=== PATIENT | female | born 1965 | race Caucasian/White ===

== ENCOUNTER 2021-10-04 21:17 | Inpatient (IN) ==
[2021-10-04] MEDS ORDERED: ONDANSETRON INJ 2 MG/ML 2 ML VIAL IV STA (21:49)
[2021-10-04 22:00] LABS: Basophils # (auto) 0.03 K/uL (0-0.2); Basophils % (auto) 0.4 %; Eosinophils # (auto) 0.25 K/uL (0-0.50); Eosinophils % (auto) 3.3 %; Hematocrit (blood only) 39.5 % (34.1-44.9); Hemoglobin 12.7 g/dl (12.0-16.0); Immature Granulocytes # (auto) 0.03 K/uL (0.00-0.02); Immature Granulocytes % (auto) 0.4 %; Lymphocytes # (auto) 0.21 K/uL (1.2-3.4); Lymphocytes % (auto) 2.8 %; Mean Corpuscular Hemoglobin 29.5 pg (25.0-34.0); Mean Corpuscular Hgb Conc 32.2 g/dL (32.0-36.0); Mean Corpuscular Volume 91.9 fL (80.0-100.0); Mean Platelet Volume 10.5 fL (9.4-12.3); Monocytes % (auto) 6.6 %; Neutrophils # (auto) 6.54 K/uL (1.4-6.5); Neutrophils % (auto) 86.5 %; Platelet Count 294 K/uL (130-400); RDW Coefficient of Variation 13.2 % (11.5-14.5); RDW Standard Deviation 44.2 fL (36.4-46.3); White Blood Count 7.56 K/ul (4.8-10.8)
[2021-10-04] MEDS ORDERED: SODIUM CHLORIDE 0.9% 1000ML 2,000 ML IV SCH (22:00)
[2021-10-04] MEDS ORDERED: ceFAZolin 2000MG 2,000 MG/15 ML SYR IV STA (22:14)
--- NOTE | 2021-10-04 22:17 | Emergency Department Note ---
History of Present Illness General Chief complaint: Weakness Time Seen by Provider: 10/04/21 21:49 History of Present Illness 56-year-old female presents to the ED with a chief complaint of generalized weakness as well as some lightheadedness earlier today. She states that she almost felt like she was going to pass out. The daughter states that she looked pale. The patient has a history of tongue cancer status postsurgery in June. She just finished radiation to her tongue and neck last Sunday. The patient states that she has not been eating or drinking well because of the difficulty with eating and drinking since having her surgery and radiation therapy. She has some discharge from her neck wound as well that has been present for the past several days or more. Denies any chest pains. No fevers. No vomiting or diarrhea. No other complaints at this time. EMS found the patient to be hypotensive and initiated liter normal saline IV. Home Medications Medication Instructions Recorded Confirmed Type cholecalciferol (vitamin D3) 1,250 50,000 units PO WEEKLY cap 10/14/18 06/21/21 History mcg (50,000 unit) capsule fluticasone 500 mcg-salmeterol 50 1 puffs INHALATION BID #3 ea 10/14/18 06/21/21 History mcg/dose blistr powdr for inhalation dvjgoloascgi-Iy-dwgb-minerals tab PO DAILY tab 10/14/18 06/21/21 History (Multiple Vitamin, Womens) nitroglycerin 0.4 mg sublingual 0.4 mg SL Q5M PRN #25 tab 10/14/18 06/21/21 History tablet hydroxyzine HCl 50 mg tablet 50 - 100 mg PO Q6H PRN tab 11/03/19 06/21/21 History levomilnacipran 80 mg capsule,24 80 mg PO DAILY 11/03/19 06/21/21 History hr,extended release (Fetzima) tiotropium bromide 1.25 1 puffs INH BID gm 11/03/19 06/21/21 History mcg/actuation mist for inhalation (Spiriva Respimat) nicotine 21 mg/24 hr daily 1 patch TRANSDERMAL Q24H 06/21/21 06/21/21 History transdermal patch (Nicoderm CQ) pantoprazole 20 mg tablet,delayed 10 mg PO DAILY tab 06/21/21 06/21/21 History release atorvastatin 80 mg tablet 80 mg PO HS #90 tab 06/22/21 Rx losartan 50 mg tablet 50 mg PO DAILY #90 tab 06/22/21 Rx metoprolol succinate 50 mg 50 mg PO DAILY #90 tab 06/22/21 Rx tablet,extended release 24 hr Allergies Allergy/AdvReac Type Severity Reaction Status Date / Time No Known Allergies Allergy Verified 06/21/21 11:16 Past Med/Surg History Medical History CAD (coronary artery disease) D1 with high grade stenosis, medical management recommended Chest pain in adult Dyslipidemia Hypertension PAD (peripheral artery disease) Tobacco abuse Surgical History History of cardiac catheterization January 2016 Social History Smoking Status: Former smoker Preferred Language: [place] Feels Safe at Home: Yes Review of Systems A total of 10 systems reviewed and were otherwise negative Physical Exam Vital Signs Vital Signs - 24 hr 10/04/21 21:20 10/04/21 21:42 10/04/21 21:49 Pulse Rate 77 Pulse Rate [Apical] 77 Pulse Rate from SpO2 Sensor Pulse Rhythm [Apical] Respiratory Rate 16 16 Respiratory Effort / Characteristics Non-Labored Non-Labored Spontaneous Respiratory Depth Normal Normal Respiratory Pattern Blood Pressure 68/47 L Blood Pressure [Left Arm] 72/46 L Blood Pressure Mean 54 Blood Pressure Mean [Left Arm] 54 Pulse Oximetry 94 94 94 Oxygen Delivery Method Room Air Room Air Room Air Sepsis Recent Fever Within 48 Hours No Sepsis New/Unexplained Change in Mental Status No Sepsis Action Taken by Nursing No Action Required 10/04/21 22:00 10/04/21 22:30 10/04/21 23:01 Pulse Rate 87 Pulse Rate [Apical] 95 H 89 Pulse Rate from SpO2 Sensor 92 H Pulse Rhythm [Apical] Regular Regular Respiratory Rate 16 16 18 Respiratory Effort / Characteristics Non-Labored Non-Labored Respiratory Depth Normal Normal Respiratory Pattern Regular Blood Pressure 100/74 Blood Pressure [Left Arm] 116/79 112/68 Blood Pressure Mean 82 Blood Pressure Mean [Left Arm] 91 82 Pulse Oximetry 16 L 99 94 Oxygen Delivery Method Room Air Nasal Cannula Room Air Room Air Sepsis Recent Fever Within 48 Hours Sepsis New/Unexplained Change in Mental Status Sepsis Action Taken by Nursing 10/04/21 23:15 Pulse Rate 87 Pulse Rate [Apical] Pulse Rate from SpO2 Sensor Pulse Rhythm [Apical] Respiratory Rate 16 Respiratory Effort / Characteristics Respiratory Depth Respiratory Pattern Blood Pressure 95/68 L Blood Pressure [Left Arm] Blood Pressure Mean 77 Blood Pressure Mean [Left Arm] Pulse Oximetry 94 Oxygen Delivery Method Room Air Sepsis Recent Fever Within 48 Hours Sepsis New/Unexplained Change in Mental Status Sepsis Action Taken by Nursing CONSTITUTIONAL/VITAL SIGNS: Reviewed / noted above. GENERAL: Non-toxic in appearance. INTEGUMENTARY: Warm, dry, and [place]. Erythematous anterior neck with some brown [place] purulent like discharge. HEAD: Normocephalic. EYES: without scleral icterus or trauma. ENT/OROPHARYNX: clear and moist. Brownish discharge from left side of the mouth. LYMPHADENOPATHY/NECK: Is supple without lymphadenopathy or meningismus. RESPIRATORY: Clear to auscultation bilaterally. No increased work of breathing. CARDIOVASCULAR: Regular rate and rhythm. GI/ABDOMEN: Soft and nontender. No organomegaly or pulsatile mass. EXTREMITIES: Warm and well perfused. BACK: No CVA tenderness. NEUROLOGICAL: Intact without focal deficits. PSYCHIATRIC: normal affect. MUSCULOSKELETAL: Normally developed with good muscle tone. TRIAGE NURSING DOCUMENTATION REVIEWED. Course Administered Medications Sodium Chloride (Nss 1000ml) 2,000 mls @ 999 mls/hr IV .Q2H1M DIGNA Stop: 10/05/21 00:00 Last Infusion: 10/04/21 23:41 Dose: 0 mls/hr Documented by: [id number] Admin: 10/04/21 22:09 Dose: 999 mls/hr Documented by: [id number] Discontinued Medications Cefazolin Sodium (Ancef 2000mg) 2,000 mg in 15 mls @ 3.75 mls/min IV NOW STA Stop: 10/04/21 22:17 Last Admin: 10/04/21 22:27 Dose: 3.75 mls/min Documented by: [id number] Acetaminophen (Ofirmev) 1,000 mg in 100 mls @ 400 mls/hr IV NOW STA Stop: 10/04/21 22:34 Last Infusion: 10/04/21 22:57 Dose: 0 mls/hr Documented by: [id number] Admin: 10/04/21 22:28 Dose: 400 mls/hr Documented by: [id number] Ondansetron HCl (Ondansetron Inj 2 Mg/Ml 2 Ml Vial) 4 mg IV NOW STA Stop: 10/04/21 21:50 Last Admin: 10/04/21 22:09 Dose: 4 mg Documented by: [id number] Medical Decision Making Differential Diagnosis Differential includes acute coronary syndrome, myocardial infarction, CVA, TIA, anemia, infection, pneumonia, UTI, pyelonephritis, poor nutrition, dehydration, electrolyte disturbance,hypoglycemia. Medical Records Attestation: I reviewed the patient's medical records. Home Medications Current Medication List: was personally reviewed by me Laboratory Data Attestation: I reviewed the patient's lab results. Result diagrams: 10/04/21 21:43 10/04/21 21:43 Lab Results 10/04/21 10/04/21 10/04/21 Range/Units 21:43 21:43 21:43 WBC 7.56 (4.8-10.8) K/ul RBC 4.30 (3.93-5.22) M/uL Hgb 12.7 (12.0-16.0) g/dl Hct 39.5 (34.1-44.9) % MCV 91.9 (80.0-100.0) fL MCH 29.5 (25.0-34.0) pg MCHC 32.2 (32.0-36.0) g/dL RDW Std Deviation 44.2 (36.4-46.3) fL RDW Coeff of Elyssa 13.2 (11.5-14.5) % Plt Count 294 (130-400) K/uL MPV 10.5 (9.4-12.3) fL Immature Gran % (Auto) 0.4 % Neut % (Auto) 86.5 % Lymph % (Auto) 2.8 % [place] % (Auto) 6.6 % Eos % (Auto) 3.3 % Baso % (Auto) 0.4 % Neut # (Auto) 6.54 H (1.4-6.5) K/uL Lymph # (Auto) 0.21 L (1.2-3.4) K/uL [place] # (Auto) 0.50 (0.24-0.82) K/uL Eos # (Auto) 0.25 (0-0.50) K/uL Baso # (Auto) 0.03 (0-0.2) K/uL Immature Gran # (Auto) 0.03 H (0.00-0.02) K/uL Sodium 133 L (136-145) mmol/L Potassium 3.9 (3.5-5.1) mmol/L Chloride 96 L (98-107) mmol/L Carbon Dioxide 21 (21-32) mmol/L Anion Gap 16 H (3-11) BUN 34 H (6-23) mg/dl Creatinine 3.70 H (0.6-1.2) mg/dl Est Cr Clr Drug Dosing Not Reportable Est GFR ( Amer) 15.1 ml/min Est GFR (Non-Af Amer) 13.0 ml/min BUN/Creatinine Ratio 9.2 L (10-20) Glucose 91 (70-99(Fasting)) mg/dl Calcium 8.7 (8.5-10.1) mg/dl Magnesium 2.5 H (1.7-2.4) mg/dl Total Bilirubin 0.4 (0.2-1.0) mg/dl AST 19 (13-39) U/L ALT 12 (7-52) U/L Alkaline Phosphatase 67 (34-104) U/L Total Creatine Kinase 68 (26-192) U/L Troponin I High Sens 5.2 (0-14) pg/ml Total Protein 6.8 (6.0-8.3) gm/dl Albumin 3.3 L (3.4-5.0) gm/dl Globulin 3.5 (2.5-4.0) gm/dl Albumin/Globulin Ratio 0.9 (0.9-2) TSH 1.190 (0.300-4.500) uIu/ml SARS-CoV-2, RNA, NAAT (NEGATIVE) 10/04/21 Range/Units 22:28 WBC (4.8-10.8) K/ul RBC (3.93-5.22) M/uL Hgb (12.0-16.0) g/dl Hct (34.1-44.9) % MCV (80.0-100.0) fL MCH (25.0-34.0) pg MCHC (32.0-36.0) g/dL RDW Std Deviation (36.4-46.3) fL RDW Coeff of Elyssa (11.5-14.5) % Plt Count (130-400) K/uL MPV (9.4-12.3) fL Immature Gran % (Auto) % Neut % (Auto) % Lymph % (Auto) % [place] % (Auto) % Eos % (Auto) % Baso % (Auto) % Neut # (Auto) (1.4-6.5) K/uL Lymph # (Auto) (1.2-3.4) K/uL [place] # (Auto) (0.24-0.82) K/uL Eos # (Auto) (0-0.50) K/uL Baso # (Auto) (0-0.2) K/uL Immature Gran # (Auto) (0.00-0.02) K/uL Sodium (136-145) mmol/L Potassium (3.5-5.1) mmol/L Chloride (98-107) mmol/L Carbon Dioxide (21-32) mmol/L Anion Gap (3-11) BUN (6-23) mg/dl Creatinine (0.6-1.2) mg/dl Est Cr Clr Drug Dosing Est GFR ( Amer) ml/min Est GFR (Non-Af Amer) ml/min BUN/Creatinine Ratio (10-20) Glucose (70-99(Fasting)) mg/dl Calcium (8.5-10.1) mg/dl Magnesium (1.7-2.4) mg/dl Total Bilirubin (0.2-1.0) mg/dl AST (13-39) U/L ALT (7-52) U/L Alkaline Phosphatase (34-104) U/L Total Creatine Kinase (26-192) U/L Troponin I High Sens (0-14) pg/ml Total Protein (6.0-8.3) gm/dl Albumin (3.4-5.0) gm/dl Globulin (2.5-4.0) gm/dl Albumin/Globulin Ratio (0.9-2) TSH (0.300-4.500) uIu/ml SARS-CoV-2, RNA, NAAT NEGATIVE (NEGATIVE) Imaging Data My Impression: Chest x-ray: Per my interpretation there is no acute disease. No pneumothorax or pneumonia. ECG Data Attestation: I personally reviewed and interpreted this ECG as follows: Additional Comments: Twelve-lead EKG: Per my interpretation shows a normal sinus rhythm at a rate of 83. No ST elevation. No PVCs. Normal QTC. MDM Narrative Patient presents to the ED with a chief complaint of lightheadedness and generalized weakness. She was hypotensive when she initially got here. This improved with a liter of IV fluid that was initiated by EMS.She does soft erythema to the anterior neck from her radiation therapy with some brownish purulent like discharge. The patient CBC was normal. Chemistry panel shows a BUN of 34 and a creatinine of 3.7. The patient does not have any recent labs here before but she states that her last hospitalization in [place] she was never told of any abnormal kidney functions. TSH is normal. Troponin was n egative. COVID test is negative and a chest x-ray was negative for acute disease. The patient was treated with 2 L normal saline IV. She was given some IV Tylenol for discomfort. She was also given IV Ancef for the next cellulitis. She was given some IV Zofran for her nausea. The patient blood pressure after 2 L normal saline was 95/68. 1/3 L of normal saline was ordered. The patient will require further evaluation and care for acute kidney injury likely related to dehydration. She also has some cellulitic type changes in the neck which may or may not be just related to her radiation therapy. Impression & Plan Acute hypotension, Acute dehydration, Acute kidney injury, Cellulitis of neck Discharge Plan Visit Data Chief Complaint: Weakness ED Provider: Dakota Kelly Discharge Problem: Acute hypotension, Acute dehydration, Acute kidney injury, Cellulitis of neck Patient Disposition: Being Evaluated by Hospitalist Forms Stand Alone Forms: My [facility] Prescriptions Prescriptions: No Action atorvastatin 80 mg tablet 80 mg PO HS Qty: 90 RF: 3 losartan 50 mg tablet 50 mg PO DAILY Qty: 90 RF: 3 metoprolol succinate 50 mg tablet extended release 24 hr 50 mg PO DAILY Qty: 90 RF: 3 cholecalciferol (vitamin D3) 50,000 unit capsule 50,000 units PO WEEKLY RF: 0 Multiple Vitamin, Womens tablet PO DAILY RF: 0 nitroglycerin 0.4 mg tablet, sublingual 0.4 mg SL Q5M PRN (Reason: chest pain) Qty: 25 RF: 0 fluticasone propion-salmeterol 500-50 mcg/dose blister with device 1 puffs inhalation BID Qty: 3 RF: 0 Fetzima 80 mg capsule,extended release 24 hr 80 mg PO DAILY RF: 0 hydroxyzine HCl 50 mg tablet 50 - 100 mg PO Q6H PRN (Reason: anxiety or sleep) RF: 0 Spiriva Respimat 1.25 mcg/actuation mist 1 puffs INH BID RF: 0 pantoprazole 20 mg tablet,delayed release (DR/EC) 10 mg PO DAILY RF: 0 nicotine [Nicoderm CQ] 21 mg/24 hr patch 24 hour 1 patch transdermal Q24H RF: 0 Referrals Referrals: Roel Prakash [Hospitalist] -
[2021-10-04] MEDS ORDERED: ACETAMINOPHEN 1,000 MG/100 ML VIAL IV STA (22:20)
[2021-10-04 23:04] LABS: Alanine Aminotransferase 12 U/L (7-52); Albumin Globulin Ratio 0.9 (0.9-2); Albumin Level 3.3 gm/dl (3.4-5.0); Alkaline Phosphatase 67 U/L (34-104); Anion Gap 16 (3-11); Aspartate Aminotransferase 19 U/L (13-39); BUN Creatinine Ratio 9.2 (10-20); Bilirubin,Total 0.4 mg/dl (0.2-1.0); Blood Urea Nitrogen 34 mg/dl (6-23); Calcium 8.7 mg/dl (8.5-10.1); Carbon Dioxide 21 mmol/L (21-32); Chloride 96 mmol/L (98-107); Creatine Kinase 68 U/L (26-192); Est GFR (African American) 15.1 ml/min; Globulin 3.5 gm/dl (2.5-4.0); Glucose 91 mg/dl (70-99(Fasting)); Magnesium 2.5 mg/dl (1.7-2.4); Potassium 3.9 mmol/L (3.5-5.1); Sodium 133 mmol/L (136-145); Total Protein 6.8 gm/dl (6.0-8.3)
[2021-10-04 23:05] LABS: Troponin I High Sensitivity 5.2 pg/ml (0-14)
[2021-10-04] MEDS ORDERED: SODIUM CHLORIDE 0.9% 1000ML 1,000 ML IV ONE (23:41)
[2021-10-05] MEDS ORDERED: Patient's HEIGHT &/or WEIGHT Needed SCH
--- NOTE | 2021-10-05 00:40 | History & Physical Report ---
Date of Service October 05, 2021 Assessment & Plan (1) Acute kidney injury: Plan: Corin Peralta is a 56yo female with PMHx significant for stage 3 oropharyngeal carcinoma (just finished RTx), CAD (s/p NSTEMI, no stents), COPD (no home O2), HTN, dyslipidemia, and previous smoker (40 pack year history, quit several months ago) who presented to [facility] ED on 10/05 for subjective fever/chills, vomiting, decreased PO intake and worsening neck redness/pain for several days. ALEJANDRO Cr 3.7, BUN:Cr ratio <10:1. UA not collected yet. Given history of nausea/vomiting/decreased PO intake for several days, suspect ATN following initial pre-renal injury, which is likely an adverse outcome of last round of radiation tx. However underlying infection may also be playing a role (see below). Patient is not anuric/oliguric. - ordered urine Na + Cr for FENa - ordered US renal complete to r/o other causes of ALEJANDRO - s/p 3L NSS boluses - will continue with 1.5 maintenance via LR @150cc/hr - strict I/Os - consult Nephrology - appreciate recs - trend BMP in AM Neck Cellulitis; Hypotension Patient reports neck redness/discharge throughout course of radiation tx although does report worsening of rash/discharge/pain over last several days. Additionally, given subjective fever/chills and decreased appetite, in addition to profound hypotension on presentation, cellulitis is a likely possibility. Thankfully, patient does not appear septic (SIRS 1/4, qSOFA 1/3, lactate WNL), given that she is immunocompromised, more aggressive treatment is warranted. - s/p Ancef 2g IV, will continue with broad abx coverage with Daptomycin/Zosyn - blood cx taken AFTER Ancef - trend and adjust abx as necessary - IVFs as stated above - PRN Tylenol for fever - trend CBC in AM Hyponatremia Na 133, likely hypotonic hypovolemic hyponatremia in context of above. - IVFs, trend in AM CAD/HLD: continue home Aspirin, Atorvastatin HTN: hold home Losartan and Metoprolol due to hypotension Depression: continue home Cymbalta and Levomilnacipran GERD: continue home Protonix COPD: continue home inhalers FEN/GI: full liquid diet; IVFs as stated above DVT Prophylaxis: Heparin SQ Code Status: full code Disposition: PCU (2) Cellulitis of neck: (3) Acute hypotension: (4) CAD (coronary artery disease): (5) Hypertension: (6) Dyslipidemia: (7) Depression: History of Present Illness Chief Complaint: weakness Primary Care Provider: Kvng Boggs Jaime Peralta is a 56yo female with PMHx significant for stage 3 oropharyngeal carcinoma (just finished RTx), CAD (s/p NSTEMI, no stents), COPD (no home O2), HTN, dyslipidemia, and previous smoker (40 pack year history, quit several months ago) who presented to [facility] ED on 10/05 for NB/NB vomiting, watery diarrhea, subjective fever/chills, generalized weakness, fatigue and decreased PO intake x3-4 days - symptoms began shortly after her last radiation treatment for oropharyngeal carcinoma. Patient also reports increased redness, pain, and purulent drainage from her neck since completion of last RTx. Patient denies h/o CKD. She has had difficulty eating solid foods since her cancer diagnosis but had managed to maintain fluid intake until several days ago - her appetite has been particularly poor over last several days. Patient has 40 pack year smoking history and quit several months ago, before she started radiation therapy. Has several drinks per week. Denies other drug use. Has been proficient with ADLs/iADLs overall and is fully ambulatory without assitance of cane/walker. In the ED the patient was profoundly hypotensive to 68/47 - improved to 101/57 after 3L NSS boluses. Afebrile and not tachycardic or hypoxic. Labs significant for BUN 34/Cr 3.70 (no previous), Na 133, Cl 96, AG 16. No leukocytosis and lactate was 0.5. CXR unremarkable. Patient was given 3L NSS boluses as stated above. Was also given Cefazolin 2g IV and blood cultures were drawn AFTER initiation of abx. Was also given Tylenol 1g PO and Zofran 4mg IV. Allergies Allergy/AdvReac Type Severity Reaction Status Date / Time No Known Allergies Allergy Verified 10/05/21 00:07 Home Medications Medication Instructions Recorded Confirmed Type nitroglycerin 0.4 mg sublingual 0.4 mg sublingual Q5M PRN chest 10/14/18 10/05/21 History tablet pain #25 tabs hydroxyzine HCl 50 mg tablet 50 - 100 mg PO Q6H PRN anxiety or 11/03/19 10/05/21 History sleep levomilnacipran 80 mg capsule,24 80 mg PO DAILY 11/03/19 10/05/21 History hr,extended release (Fetzima) pantoprazole 20 mg tablet,delayed 20 mg PO DAILY 06/21/21 10/05/21 History release atorvastatin 80 mg tablet 80 mg PO HS #90 tabs 06/22/21 10/05/21 Rx losartan 50 mg tablet 50 mg PO DAILY #90 tabs 06/22/21 10/05/21 Rx metoprolol succinate 50 mg 50 mg PO DAILY #90 tabs 06/22/21 10/05/21 Rx tablet,extended release 24 hr aspirin 81 mg tablet,delayed 81 mg PO DAILY 10/05/21 10/05/21 History release nortriptyline 50 mg capsule 50 mg PO HS 10/05/21 10/05/21 History oxycodone 5 mg tablet 5 - 10 mg PO Q4 PRN Pain 10/05/21 10/05/21 History tiotropium bromide 2.5 1 puff inhalation BID 10/05/21 10/05/21 History mcg/actuation mist for inhalation (Spiriva Respimat) zolpidem 10 mg tablet 10 mg PO HS 10/05/21 10/05/21 History Past Med/Surg History Medical History CAD (coronary artery disease) D1 with high grade stenosis, medical management recommended Chest pain in adult Dyslipidemia Hypertension PAD (peripheral artery disease) Tobacco abuse Surgical History History of cardiac catheterization January 2016 Social History Smoking Status: Former smoker Preferred Language: Greenlandic Feels Safe at Home: Yes Review of Systems Review of Systems: All systems reviewed & are unremarkable except as noted in HPI & below Physical Exam Physical Exam: General: A&Ox3. NAD. Cooperative. Thin. HEENT: atraumatic, normocephalic. Neck: nearly circumferential erythematous rash on neck which extends down towards mid-chest, with overlying good film and visible purulent drainage. Surrounding skin is warm. Pulm: CTAB A&P. -wheezes, -rales, -rhonchi. Symmetrical chest rise. No increase work of breathing. No respiratory distress. Cardiac: RRR, -mrg. Radial pulses intact and symmetrical. Abdominal: soft, non-tender, non-distended, BS x 4 Back: no CVA tenderness Skin: warm, dry, no rash Results & Data Results & Data ([facility]) Vital Signs (Past 12 Hours) Vital Signs Pulse Pulse Resp BP BP Pulse Ox 10/04/21 23:45 81 21 101/57 L 94 10/04/21 23:15 87 16 95/68 L 94 10/04/21 23:01 87 18 100/74 94 10/04/21 22:30 89 16 112/68 99 10/04/21 22:00 95 H 16 116/79 16 L 10/04/21 21:49 94 10/04/21 21:42 77 16 72/46 L 94 10/04/21 21:20 77 16 68/47 L 94 Code Status & VTE Plan Code Status full code - discussed with patient Supervising Physician Co-Signing Physician Notes Attending addendum: I have physically seen this patient, have supervised the medical residents activities, and agree with the H&P unless as otherwise noted. Assessment and Plan: Acute kidney injury- Creatinine 3.7 upon admission, unknown baseline Order renal ultrasound Received a total of 3 L normal saline boluses from the ED LR at 150 mils per hour Serial BMP and magnesium levels Nephrology has been consulted Neck cellulitis/immunosuppressed state- Received Ancef 2 g IV from the ED Broaden antibiotic coverage empirically with daptomycin IV and Zosyn IV Follow cultures as noted CAD/hypertension- Continue aspirin Hold metoprolol and losartan due to hypotension Hyperlipidemia- Continue atorvastatin Continue other medications and notations as noted Resident Activity Tracking Resident Involvement: Resident Care Provided Care Provided: Adult [facility]
[2021-10-05] MEDS ORDERED: DAPTOmycin 275 MG in SYRINGE 0 ML IV ONE (01:00)
[2021-10-05] MEDS ORDERED: PIPERACILLIN/TAZOBACTAM 4.5 GM/120 ML BAG IV ONE (01:00)
[2021-10-05 01:02] LABS: Appearance Urine Cloudy (Clear); Bilirubin Urine Negative (Negative); Blood Urine Trace (Negative); Color Urine Yellow; Epithelial Cell Urine Auto >30 /lpf (0-5); Glucose Urine UA Negative (Negative); Ketones Urine Trace (Negative); Leukocyte Esterase Urine Negative (Negative); Nitrite Urine Negative (Negative); Protein Urine 1+ (Negative); RBC Urine Automated 0-4 /hpf (0-4); Specific Gravity Urine 1.015 (1.000-1.030); Urobilinogen Urine Negative (Negative); WBC Urine Automated >30 /hpf (0-5); pH Urine 5.5 (4.5-7.5)
[2021-10-05 01:17] LABS: Bacteria Urine Automated 1+ (Negative); Cast Urine Automated >30 /lpf (0-5); Creatinine Urine Random 102.9 mg/dl; Mucus Urine Present (None Prsent)
[2021-10-05] MEDS ORDERED: ONDANSETRON INJ 2 MG/ML 2 ML VIAL IV PRN (02:01)
[2021-10-05] MEDS ORDERED: POLYETHYLENE (MIRALAX) 17 GM PACK PO PRN (02:01)
[2021-10-05] MEDS: ACETAMINOPHEN 325 MG TAB PO PRN ×2 (05:34→13:40)
[2021-10-05] MEDS: LACTATED RINGER'S 1,000 ML IV SCH ×4 (05:35→22:02)
--- NOTE | 2021-10-05 05:54 | Billing Data ---
Date of Service October 05, 2021 Coding Level of Care Code 20170 Initial Inpt Care Lvl 3
[2021-10-05] MEDS: FIRST - Mouthwash BLM 119 ML PO SCH ×5 (07:07→21:18)
--- NOTE | 2021-10-05 07:50 | XRay Report ---
SINGLE VIEW CHEST CLINICAL HISTORY: Generalized weakness. FINDINGS: An AP, portable, upright chest radiograph is compared to chest x-ray and chest CT dated . Surgical clips are noted in the right lower neck. The cardiomediastinal silhouette is unrema rkable. The lungs and pleural spaces are clear. No pneumothorax is seen. The bony thorax is grossly i ntact. IMPRESSION: No active disease in the chest. ACT 112: Negative or not required by law. Electronically signed by: Jose Francisco Andersen M.D. 10/05/2021 7:49 AM
--- NOTE | 2021-10-05 08:17 | Ultrasound Report ---
US renal/blad retro comp CLINICAL HISTORY: ALEJANDRO TECHNIQUE: Multiple sonographic real-time images of the kidneys and bladder were obtained. COMPARISON: None available at the time of this dictation. FINDINGS: The right kidney measures 12.0 cm in length, and the left kidney measures 11.6 cm in length. The right kidney is normal in size, contour, cortical thickness, and echogenicity. No hydronephrosis is identified. There is a 1.1 cm cyst with a thin septation in the mid kidney. No perinephric fluid collection is seen. The left kidney is normal in size, contour, cortical thickness and echogenicity. No hydronephrosis i s identified. 9 mm hypoechoic structure in the upper pole is nonspecific. No perinephric fluid shane ection is seen. The bladder is partially distended. No large intraluminal mass is seen. IMPRESSION: Unremarkable examination and in particular no evidence of hydronephrosis. A right renal cyst is noted with thin septation. ACT 112: Negative or not required by law. Electronically signed by: Sam Meraz M.D. 10/05/2021 8:16 AM
[2021-10-05 08:38] LABS: Hematocrit (blood only) 33.9 % (34.1-44.9); Hemoglobin 10.9 g/dl (12.0-16.0); Mean Corpuscular Hgb Conc 32.2 g/dL (32.0-36.0); Mean Corpuscular Volume 93.4 fL (80.0-100.0); Mean Platelet Volume 10.6 fL (9.4-12.3); Platelet Count 211 K/uL (130-400); RDW Coefficient of Variation 13.3 % (11.5-14.5); RDW Standard Deviation 45.1 fL (36.4-46.3); Red Blood Count 3.63 M/uL (3.93-5.22); White Blood Count 12.04 K/ul (4.8-10.8)
[2021-10-05] MEDS: PANTOprazole 40 MG TAB PO SCH (08:47)
[2021-10-05] MEDS: UMECLIDINIUM BROMIDE 62.5MCG/BLISTER 7 PUFFS/INHALER INH SCH (08:47)
[2021-10-05] MEDS: HEPARIN SOD 5,000 UNIT/0.5 ML VIAL SQ SCH ×2 (08:47→20:33)
[2021-10-05] MEDS: ASPIRIN 81 MG ECTAB PO SCH (08:47)
--- NOTE | 2021-10-05 08:59 | Nephrology Consultation ---
Date of Consultation October 05, 2021 Assessment & Plan (1) Acute kidney injury: * Baseline Cr unknown * ALEJANDRO on the basis of poor oral intake/profound dehydration in the setting of ARB therapy * Cr improved from 3.7 to 2.2 overnight following IV hydration * FeNa 1.4% * Urine sediment is negative for granular casts * Renal US negative for obstruction * Remains clinically volume contracted. Continue LR at 150 cc/hr * Monitor PRP (2) Hypertension: * Continued relative hypotension * Hold Lisinopril (3) Cellulitis: * Continue Zosyn and Daptomycin. Recommend consultation w/ pharmacy for dosing in the setting of ALEJANDRO History of Present Illness Reason for Consultation: Acute kidney injury Attending Physician: Shanell Sargent DO History of Present Illness Ms. Peralta is a 56 year old white female who is seen at the request of the [facility] Hospitalist Service for evaluation of ALEJANDRO. Medical records in the EMR were reviewed today and are summarized as follows: Ms. Peralta resides in [place], [place]. This is her 1st hospitalization at our facility. Her baseline Cr is unknown. She denies any prior h/o CKD or Nephrology evaluation. Ms. 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 She recently completed a course of radiation therapy. Ms. Peralta's medical history is also significant for HTN (Losartan therapy), ASCVD s/p NSTEMI (no stent), hyperlipidemia, COPD, meningioma, traumatic SDH, and GERD. She reports poor oral intake over the last several days. She has developed erythema and drainage from her R neck dissection/radiation therapy site. Ms. Peralta called EMS due to profound fatigue and orthostasis. She was brought to the hospital and found to be profoundly dehydrated w/ SBP 68/47 and Cr 3.7. A total of 3 L 0.9 NS have been infused. CXR was negative for infiltrate. ECG was NSR. COVID testing was negative. Allergies Allergy/AdvReac Type Severity Reaction Status Date / Time No Known Allergies Allergy Verified 10/05/21 00:07 Home Medications Medication Instructions Recorded Confirmed Type nitroglycerin 0.4 mg sublingual 0.4 mg sublingual Q5M PRN chest 10/14/18 10/05/21 History tablet pain #25 tabs hydroxyzine HCl 50 mg tablet 50 - 100 mg PO Q6H PRN anxiety or 11/03/19 10/05/21 History sleep levomilnacipran 80 mg capsule,24 80 mg PO DAILY 11/03/19 10/05/21 History hr,extended release (Fetzima) pantoprazole 20 mg tablet,delayed 20 mg PO DAILY 06/21/21 10/05/21 History release atorvastatin 80 mg tablet 80 mg PO HS #90 tabs 06/22/21 10/05/21 Rx losartan 50 mg tablet 50 mg PO DAILY #90 tabs 06/22/21 10/05/21 Rx metoprolol succinate 50 mg 50 mg PO DAILY #90 tabs 06/22/21 10/05/21 Rx tablet,extended release 24 hr aspirin 81 mg tablet,delayed 81 mg PO DAILY 10/05/21 10/05/21 History release nortriptyline 50 mg capsule 50 mg PO HS 10/05/21 10/05/21 History oxycodone 5 mg tablet 5 - 10 mg PO Q4 PRN Pain 10/05/21 10/05/21 History tiotropium bromide 2.5 1 puff inhalation BID 10/05/21 10/05/21 History mcg/actuation mist for inhalation (Spiriva Respimat) zolpidem 10 mg tablet 10 mg PO HS 10/05/21 10/05/21 History Patient History Medical History CAD (coronary artery disease) D1 with high grade stenosis, medical management recommended Chest pain in adult Dyslipidemia Hypertension PAD (peripheral artery disease) Tobacco abuse Surgical History History of cardiac catheterization January 2016 Social History Smoking Status: Former smoker Hx Alcohol Use: Yes Hx Substance Use: No Preferred Language: Arabic Communication Ability: Effective Beliefs That Will Affect Care: None marital status: Current Living Situation: Parent Current Living Situation Comment: Lives with her mother Other Information That Helps Us Care for You: No Feels Safe at Home: Yes Safety Concerns: Feels Safe At This Time Assistive Devices: None Review of Systems Constitutional: no fever Eyes: no problem reported Ear, Nose, Mouth, Throat: + pain with swallowing Respiratory: no dyspnea Cardiovascular: no chest pain Gastrointestinal: no abdominal pain, no nausea and no vomiting Neurologic: + generalized weakness Physical Exam Constitutional: + ill appearing Eyes: PERRL, conjunctivae normal, anicteric sclerae Neck: R neck erythematous w/ serous drainage Respiratory: normal respiratory effort, lungs clear to auscultation Cardiovascular: RRR, no murmur, no edema Gastrointestinal (Abdomen): normal bowel sounds, soft, nontender, no hepatosplenomegaly Results & Data ([facility]) Vital Signs (Past 12 Hours) Vital Signs Temp Pulse Pulse Resp BP BP BP 10/05/21 07:00 89 10/05/21 07:00 10/05/21 07:17 36.5 C 88 19 81/60 L 10/05/21 06:25 91 H 10/05/21 02:00 36.9 C 91 H 18 87/60 L 10/05/21 02:01 36.9 C 91 H 18 87/60 L 10/04/21 23:46 36.9 C 91 H 18 87/60 L 10/05/21 01:30 89 18 105/59 L 10/05/21 00:50 86 16 111/70 10/05/21 00:16 94 H 18 105/64 10/04/21 23:45 81 21 101/57 L 10/04/21 23:15 87 16 95/68 L 10/04/21 23:01 87 18 100/74 10/04/21 22:30 89 16 112/68 10/04/21 22:00 95 H 16 116/79 10/04/21 21:49 10/04/21 21:42 77 16 72/46 L 10/04/21 21:20 10/04/21 21:20 77 16 68/47 L Pulse Ox O2 Del Method 10/05/21 07:00 10/05/21 07:00 Room Air 10/05/21 07:17 100 Room Air 10/05/21 06:25 10/05/21 02:00 97 Room Air 10/05/21 02:01 97 10/04/21 23:46 97 Room Air 10/05/21 01:30 91 Room Air 10/05/21 00:50 96 Room Air 10/05/21 00:16 93 Room Air 10/04/21 23:45 94 Room Air 10/04/21 23:15 94 Room Air 10/04/21 23:01 94 Room Air 10/04/21 22:30 99 Room Air 10/04/21 22:00 16 L Room Air, Nasal Cannula 10/04/21 21:49 94 Room Air 10/04/21 21:42 94 Room Air 10/04/21 21:20 94 Room Air 10/04/21 21:20 94 Room Air Laboratory Results Laboratory Tests 10/05/21 10/05/21 10/05/21 00:13 00:13 07:57 WBC 12.04 H Hgb 10.9 L Hct 33.9 L Plt Count 211 Urine Color Yellow Urine Appearance Cloudy A Ur Specific [place] 1.015 Urine Protein 1+ H Urine Blood Trace H Urine WBC (Auto) >30 H U Hyaline Cast (Auto) >30 H U Epithel Cells (Auto) >30 H Urine Bacteria (Auto) 1+ H Ur Random Creatinine 102.9 Ur Random Sodium 54 Diagnostic Findings FeNa 1.4% 10/04/21 Renal US: Unremarkable examination and in particular no evidence of hydronephrosis. A right renal cyst is noted with thin septation. PG Care Time/CCT Total # of Minutes Spent Total Time Spent with Patient: Total time spent is greater than 50% in coordination of care (as documented) at patient's floor/unit and/or counseling patient: Coding Level of Care Code 58845 Inpt Consult Level 5 Diagnoses Acute kidney injury N17.9 Hypertension I10 Cellulitis L03.90
[2021-10-05] MEDS ORDERED: NON-FORMULARY MEDICATION (Tiotropium Bromide [Spiriva Respimat] 2.5 mcg/actuation mist) INH SCH (09:00)
[2021-10-05 09:04] LABS: BUN Creatinine Ratio 14.5 (10-20); Creatinine Clr Calc Pharmacy 22.9 ml/min; Est GFR (African American) 28.3 ml/min; Est GFR (Non-African American) 24.4 ml/min; Magnesium 1.9 mg/dl (1.7-2.4); Potassium 3.6 mmol/L (3.5-5.1)
[2021-10-05 09:10] LABS: Basophils # (auto) 0.05 K/uL (0-0.2); Basophils % (auto) 0.4 %; Eosinophils # (auto) 0.01 K/uL (0-0.50); Eosinophils % (auto) 0.1 %; Immature Granulocytes # (auto) 0.17 K/uL (0.00-0.02); Immature Granulocytes % (auto) 1.4 %; Lymphocytes # (auto) 0.15 K/uL (1.2-3.4); Lymphocytes % (auto) 1.2 %; Monocytes # (auto) 0.96 K/uL (0.24-0.82); Neutrophils % (auto) 88.9 %
[2021-10-05] MEDS ORDERED: PIPERACILLIN/TAZOBACTAM 3.375 GM in DEXTROSE 5% 100 ML IV SCH (10:00)
--- NOTE | 2021-10-05 10:05 | Hospitalist Progress Note ---
Date of Service October 05, 2021 Assessment & Plan (1) Acute kidney injury: Plan: Corin Peralta is a 56yo female with PMHx significant for stage 3 oropharyngeal carcinoma (just finished RTx), CAD (s/p NSTEMI, no stents), COPD (no home O2), HTN, dyslipidemia, and previous smoker (40 pack year history, quit several months ago) who presented to [facility] ED on 10/05 for subjective fever/chills, vomiting, decreased PO intake and worsening neck redness/pain for several days. ALEJANDRO Cr 3.7, BUN:Cr ratio <10:1.. Given history of nausea/vomiting/decreased PO intake for several days, suspect ATN following initial pre-renal injury, which is likely an adverse outcome of last round of radiation tx. However underlying infection may also be playing a role (see below). Patient is not anuric/oliguric. - Cr 2.2, improved with hydration - s/p 3L NSS boluses - will continue with 1.5 maintenance via LR @150cc/hr - US renal: R renal cyst otherwise normal - FeNa 1.4% - Urine sediment neg for granular casts - strict I/Os - Nephrology consulted - trend BMP in AM Neck Cellulitis; Hypotension Patient reports neck redness/discharge throughout course of radiation tx although does report worsening of rash/discharge/pain over last several days. Given subjective fever/chills and decreased appetite, in addition to profound hypotension on presentation, cellulitis is a likely possibility. Patient does not appear septic (SIRS 1/4, qSOFA 1/3, lactate WNL), given that she is immunocompromised, more aggressive treatment is warranted. - s/p Ancef 2g IV, will continue with broad abx coverage with Daptomycin/Zosyn, renally dosed - blood cx taken AFTER Ancef - trend and adjust abx as necessary - IVFs as stated above - PRN Tylenol for fever - trend CBC in AM Nonbloody Diarrhea -contributing to fluid status and ALEJANDRO -c. diff gene position, tox neg; on contact precautions -GI PCR pending -Ova + parasite panel pend Hyponatremia, stable Na 133, likely hypotonic hypovolemic hyponatremia in context of above. - IVFs, trend in AM CAD/HLD -continue home Aspirin, Atorvastatin HTN -hold home Losartan and Metoprolol due to hypotension Depression -continue home Cymbalta and Levomilnacipran GERD -continue home Protonix COPD -continue home inhalers FEN/GI: full liquid diet; IVFs as stated above DVT Prophylaxis: Heparin SQ Code Status: full code Disposition: PCU (2) Cellulitis of neck: (3) Acute hypotension: (4) CAD (coronary artery disease): (5) Hypertension: (6) Dyslipidemia: (7) Depression: Admission and Anticipated Discharge Date Admission Date: October 05, 2021 Supervising Physician Co-Signing Physician Notes Patient seen and examined with PGY-2 Dr. Patterson. Agree with history, exam findings, assessment and plan of care as outlined. In brief, Ms. Peratla is a 56 year old female with history of history of oropharyngeal cancer (stage 3) undergoing radiation, NSTEMI, COPD, HTN, HLD admitted with fever, chills, vomiting and loose stool, found to have ALEJANDRO. Continues to have multiple episodes of loose stools per day with urgency. Continues to have mouth pain. Follows with radiation oncologist and oncologist in [place]. VS and nursing notes reviewed. Non-toxic appearing. Moist mucus membranes. Neck--area is covered with kerlex dressing. Reviewed pictures from wound care. Heart with regular and rhythm. Lungs are clear to auscultation throughout Abdomen is soft, non-tender. Labs and imaging reviewed. 1. ALEJANDRO. Pre-renal. Improving. Renal ultrasound without signs of obstruction. FeNa 1.4%. Continue with 150/hr of LR. Appreciate nephrology recs. 2. Cellulitis, neck. Following radiation--most consistent with burn. Treating with dapto and zosyn (MRSA and pseduomoas coverage). Renal dosing the zosyn. Blood cultures are pending. Appreciate wound care recommendations. 3. Hyponatremia. resolved. 4. Diarrhea. GI biofire to rule out infectious source. 5. hypotension. Secondary to intravascular depletion and infection. Continue with IVFs and treat infectious sources. Dispo: pending clinical improvement. Subjective Patient seen at bedside this morning. No overnight or acute events. Feeling better than prior. Complains of chronic mouth pain/ulcers, mild abdominal pain/nausea but improving, dysuria. No vomiting episodes since prior to admission. No difficulty swallowing. Has been having constant nonbloody diarrhea. Review of Systems Review of Systems: All systems reviewed & are unremarkable except as noted in HPI & below Physical Exam Physical Exam: General: A&Ox3. NAD. Cooperative. Thin. HEENT: NCAT. Moist mucous membranes. Neck: nearly circumferential erythematous rash on neck which extends down towards mid chest, with overlying good film and visible purulent drainage. Surrounding skin is warm. Pulm: CTAB. no wheezes, rales, rhonchi. Symmetrical chest rise. No increase work of breathing. No respiratory distress. Cardiac: RRR, no murmurs. Radial pulses intact and symmetrical. Abdominal: soft, nontender, nondistended, +BS Skin: warm, dry Results & Data Results & Data ([facility]) Vital Signs (Past 12 Hours) Vital Signs Temp Pulse Pulse Resp BP BP BP 10/05/21 07:00 89 10/05/21 07:00 10/05/21 07:17 36.5 C 88 19 81/60 L 10/05/21 06:25 91 H 10/05/21 02:00 36.9 C 91 H 18 87/60 L 10/05/21 02:01 36.9 C 91 H 18 87/60 L 10/04/21 23:46 36.9 C 91 H 18 87/60 L 10/05/21 01:30 89 18 105/59 L 10/05/21 00:50 86 16 111/70 10/05/21 00:16 94 H 18 105/64 10/04/21 23:45 81 21 101/57 L 10/04/21 23:15 87 16 95/68 L 10/04/21 23:01 87 18 100/74 10/04/21 22:30 89 16 112/68 Pulse Ox O2 Del Method 10/05/21 07:00 10/05/21 07:00 Room Air 10/05/21 07:17 100 Room Air 10/05/21 06:25 10/05/21 02:00 97 Room Air 10/05/21 02:01 97 10/04/21 23:46 97 Room Air 10/05/21 01:30 91 Room Air 10/05/21 00:50 96 Room Air 10/05/21 00:16 93 Room Air 10/04/21 23:45 94 Room Air 10/04/21 23:15 94 Room Air 10/04/21 23:01 94 Room Air 10/04/21 22:30 99 Room Air Laboratory Results 10/05/21 10/05/21 10/05/21 Range/Units 15:17 08:18 07:57 WBC (4.8-10.8) K/ul RBC (3.93-5.22) M/uL Hgb (12.0-16.0) g/dl Hct (34.1-44.9) % MCV (80.0-100.0) fL MCH (25.0-34.0) pg MCHC (32.0-36.0) g/dL RDW Std Deviation (36.4-46.3) fL RDW Coeff of Elyssa (11.5-14.5) % Plt Count (130-400) K/uL MPV (9.4-12.3) fL Immature Gran % (Auto) % Neut % (Auto) % Lymph % (Auto) % [place] % (Auto) % Eos % (Auto) % Baso % (Auto) % Neut # (Auto) (1.4-6.5) K/uL Lymph # (Auto) (1.2-3.4) K/uL [place] # (Auto) (0.24-0.82) K/uL Eos # (Auto) (0-0.50) K/uL Baso # (Auto) (0-0.2) K/uL Immature Gran # (Auto) (0.00-0.02) K/uL Sodium 137 136 (136-145) mmol/L Potassium 3.6 3.6 (3.5-5.1) mmol/L Chloride 107 104 (98-107) mmol/L Carbon Dioxide 17 L 21 (21-32) mmol/L Anion Gap 13 H 11 (3-11) BUN 31 H 32 H (6-23) mg/dl Creatinine 1.67 H D 2.20 H D (0.6-1.2) mg/dl Est Cr Clr Drug Dosing 30.1 22.9 Est GFR ( Amer) 39.5 28.3 ml/min Est GFR (Non-Af Amer) 34.1 24.4 ml/min BUN/Creatinine Ratio 18.6 14.5 (10-20) Glucose 88 100 H (70-99(Fasting)) mg/dl Lactate (0.4-2.0) mmol/L Calcium 6.9 L 7.0 L (8.5-10.1) mg/dl Magnesium 1.9 (1.7-2.4) mg/dl Total Bilirubin (0.2-1.0) mg/dl AST (13-39) U/L ALT (7-52) U/L Alkaline Phosphatase (34-104) U/L Total Creatine Kinase (26-192) U/L Troponin I High Sens (0-14) pg/ml Total Protein (6.0-8.3) gm/dl Albumin (3.4-5.0) gm/dl Globulin (2.5-4.0) gm/dl Albumin/Globulin Ratio (0.9-2) Prealbumin 9.0 L (20-40) mg/dl Procalcitonin (0-0.5) ng/ml TSH (0.300-4.500) uIu/ml Urine Color Urine Appearance (Clear) Urine pH (4.5-7.5) Ur Specific [place] (1.000-1.030) Urine Protein (Negative) Urine Glucose (UA) (Negative) Urine Ketones (Negative) Urine Blood (Negative) Urine Nitrite (Negative) Urine Bilirubin (Negative) Urine Urobilinogen (Negative) Ur Leukocyte Esterase (Negative) Urine WBC (Auto) (0-5) /hpf Urine RBC (Auto) (0-4) /hpf U Hyaline Cast (Auto) (0-5) /lpf U Epithel Cells (Auto) (0-5) /lpf Urine Bacteria (Auto) (Negative) Urine Mucus (None Prsent) Urine Yeast (None Prsent) Ur Random Creatinine mg/dl Ur Random Sodium mmol/L Stl C. diff Tox B Gene Positive Cdiff Gene H (Neg) Stl C.difficile Tox A&B Negative Cdiff Toxin (Negative) SARS-CoV-2, RNA, NAAT (NEGATIVE) 10/05/21 10/05/21 10/05/21 Range/Units 07:57 00:13 00:13 WBC 12.04 H (4.8-10.8) K/ul RBC 3.63 L (3.93-5.22) M/uL Hgb 10.9 L (12.0-16.0) g/dl Hct 33.9 L (34.1-44.9) % MCV 93.4 (80.0-100.0) fL MCH 30.0 (25.0-34.0) pg MCHC 32.2 (32.0-36.0) g/dL RDW Std Deviation 45.1 (36.4-46.3) fL RDW Coeff of Elyssa 13.3 (11.5-14.5) % Plt Count 211 (130-400) K/uL MPV 10.6 (9.4-12.3) fL Immature Gran % (Auto) 1.4 % Neut % (Auto) 88.9 % Lymph % (Auto) 1.2 % [place] % (Auto) 8.0 % Eos % (Auto) 0.1 % Baso % (Auto) 0.4 % Neut # (Auto) 10.70 H (1.4-6.5) K/uL Lymph # (Auto) 0.15 L (1.2-3.4) K/uL [place] # (Auto) 0.96 H (0.24-0.82) K/uL Eos # (Auto) 0.01 (0-0.50) K/uL Baso # (Auto) 0.05 (0-0.2) K/uL Immature Gran # (Auto) 0.17 H (0.00-0.02) K/uL Sodium (136-145) mmol/L Potassium (3.5-5.1) mmol/L Chloride (98-107) mmol/L Carbon Dioxide (21-32) mmol/L Anion Gap (3-11) BUN (6-23) mg/dl Creatinine (0.6-1.2) mg/dl Est Cr Clr Drug Dosing Est GFR ( Amer) ml/min Est GFR (Non-Af Amer) ml/min BUN/Creatinine Ratio (10-20) Glucose (70-99(Fasting)) mg/dl Lactate (0.4-2.0) mmol/L Calcium (8.5-10.1) mg/dl Magnesium (1.7-2.4) mg/dl Total Bilirubin (0.2-1.0) mg/dl AST (13-39) U/L ALT (7-52) U/L Alkaline Phosphatase (34-104) U/L Total Creatine Kinase (26-192) U/L Troponin I High Sens (0-14) pg/ml Total Protein (6.0-8.3) gm/dl Albumin (3.4-5.0) gm/dl Globulin (2.5-4.0) gm/dl Albumin/Globulin Ratio (0.9-2) Prealbumin (20-40) mg/dl Procalcitonin (0-0.5) ng/ml TSH (0.300-4.500) uIu/ml Urine Color Yellow Urine Appearance Cloudy A (Clear) Urine pH 5.5 (4.5-7.5) Ur Specific [place] 1.015 (1.000-1.030) Urine Protein 1+ H (Negative) Urine Glucose (UA) Negative (Negative) Urine Ketones Trace H (Negative) Urine Blood Trace H (Negative) Urine Nitrite Negative (Negative) Urine Bilirubin Negative (Negative) Urine Urobilinogen Negative (Negative) Ur Leukocyte Esterase Negative (Negative) Urine WBC (Auto) >30 H (0-5) /hpf Urine RBC (Auto) 0-4 (0-4) /hpf U Hyaline Cast (Auto) >30 H (0-5) /lpf U Epithel Cells (Auto) >30 H (0-5) /lpf Urine Bacteria (Auto) 1+ H (Negative) Urine Mucus Present A (None Prsent) Urine Yeast Present A (None Prsent) Ur Random Creatinine 102.9 mg/dl Ur Random Sodium 54 mmol/L Stl C. diff Tox B Gene (Neg) Stl C.difficile Tox A&B (Negative) SARS-CoV-2, RNA, NAAT (NEGATIVE) 10/05/21 10/05/21 10/05/21 Range/Units 00:08 00:08 00:08 WBC (4.8-10.8) K/ul RBC (3.93-5.22) M/uL Hgb (12.0-16.0) g/dl Hct (34.1-44.9) % MCV (80.0-100.0) fL MCH (25.0-34.0) pg MCHC (32.0-36.0) g/dL RDW Std Deviation (36.4-46.3) fL RDW Coeff of Elyssa (11.5-14.5) % Plt Count (130-400) K/uL MPV (9.4-12.3) fL Immature Gran % (Auto) % Neut % (Auto) % Lymph % (Auto) % [place] % (Auto) % Eos % (Auto) % Baso % (Auto) % Neut # (Auto) (1.4-6.5) K/uL Lymph # (Auto) (1.2-3.4) K/uL [place] # (Auto) (0.24-0.82) K/uL Eos # (Auto) (0-0.50) K/uL Baso # (Auto) (0-0.2) K/uL Immature Gran # (Auto) (0.00-0.02) K/uL Sodium (136-145) mmol/L Potassium (3.5-5.1) mmol/L Chloride (98-107) mmol/L Carbon Dioxide (21-32) mmol/L Anion Gap (3-11) BUN (6-23) mg/dl Creatinine (0.6-1.2) mg/dl Est Cr Clr Drug Dosing Est GFR ( Amer) ml/min Est GFR (Non-Af Amer) ml/min BUN/Creatinine Ratio (10-20) Glucose (70-99(Fasting)) mg/dl Lactate 0.5 (0.4-2.0) mmol/L Calcium (8.5-10.1) mg/dl Magnesium (1.7-2.4) mg/dl Total Bilirubin (0.2-1.0) mg/dl AST (13-39) U/L ALT (7-52) U/L Alkaline Phosphatase (34-104) U/L Total Creatine Kinase 54 (26-192) U/L Troponin I High Sens (0-14) pg/ml Total Protein (6.0-8.3) gm/dl Albumin (3.4-5.0) gm/dl Globulin (2.5-4.0) gm/dl Albumin/Globulin Ratio (0.9-2) Prealbumin (20-40) mg/dl Procalcitonin 0.12 (0-0.5) ng/ml TSH (0.300-4.500) uIu/ml Urine Color Urine Appearance (Clear) Urine pH (4.5-7.5) Ur Specific [place] (1.000-1.030) Urine Protein (Negative) Urine Glucose (UA) (Negative) Urine Ketones (Negative) Urine Blood (Negative) Urine Nitrite (Negative) Urine Bilirubin (Negative) Urine Urobilinogen (Negative) Ur Leukocyte Esterase (Negative) Urine WBC (Auto) (0-5) /hpf Urine RBC (Auto) (0-4) /hpf U Hyaline Cast (Auto) (0-5) /lpf U Epithel Cells (Auto) (0-5) /lpf Urine Bacteria (Auto) (Negative) Urine Mucus (None Prsent) Urine Yeast (None Prsent) Ur Random Creatinine mg/dl Ur Random Sodium mmol/L Stl C. diff Tox B Gene (Neg) Stl C.difficile Tox A&B (Negative) SARS-CoV-2, RNA, NAAT (NEGATIVE) 10/04/21 10/04/21 10/04/21 Range/Units 22:50 22:28 21:43 WBC (4.8-10.8) K/ul RBC (3.93-5.22) M/uL Hgb (12.0-16.0) g/dl Hct (34.1-44.9) % MCV (80.0-100.0) fL MCH (25.0-34.0) pg MCHC (32.0-36.0) g/dL RDW Std Deviation (36.4-46.3) fL RDW Coeff of Elyssa (11.5-14.5) % Plt Count (130-400) K/uL MPV (9.4-12.3) fL Immature Gran % (Auto) % Neut % (Auto) % Lymph % (Auto) % [place] % (Auto) % Eos % (Auto) % Baso % (Auto) % Neut # (Auto) (1.4-6.5) K/uL Lymph # (Auto) (1.2-3.4) K/uL [place] # (Auto) (0.24-0.82) K/uL Eos # (Auto) (0-0.50) K/uL Baso # (Auto) (0-0.2) K/uL Immature Gran # (Auto) (0.00-0.02) K/uL Sodium (136-145) mmol/L Potassium (3.5-5.1) mmol/L Chloride (98-107) mmol/L Carbon Dioxide (21-32) mmol/L Anion Gap (3-11) BUN (6-23) mg/dl Creatinine (0.6-1.2) mg/dl Est Cr Clr Drug Dosing Est GFR ( Amer) ml/min Est GFR (Non-Af Amer) ml/min BUN/Creatinine Ratio (10-20) Glucose (70-99(Fasting)) mg/dl Lactate 1.4 (0.4-2.0) mmol/L Calcium (8.5-10.1) mg/dl Magnesium (1.7-2.4) mg/dl Total Bilirubin (0.2-1.0) mg/dl AST (13-39) U/L ALT (7-52) U/L Alkaline Phosphatase (34-104) U/L Total Creatine Kinase (26-192) U/L Troponin I High Sens (0-14) pg/ml Total Protein (6.0-8.3) gm/dl Albumin (3.4-5.0) gm/dl Globulin (2.5-4.0) gm/dl Albumin/Globulin Ratio (0.9-2) Prealbumin (20-40) mg/dl Procalcitonin (0-0.5) ng/ml TSH 1.190 (0.300-4.500) uIu/ml Urine Color Urine Appearance (Clear) Urine pH (4.5-7.5) Ur Specific [place] (1.000-1.030) Urine Protein (Negative) Urine Glucose (UA) (Negative) Urine Ketones (Negative) Urine Blood (Negative) Urine Nitrite (Negative) Urine Bilirubin (Negative) Urine Urobilinogen (Negative) Ur Leukocyte Esterase (Negative) Urine WBC (Auto) (0-5) /hpf Urine RBC (Auto) (0-4) /hpf U Hyaline Cast (Auto) (0-5) /lpf U Epithel Cells (Auto) (0-5) /lpf Urine Bacteria (Auto) (Negative) Urine Mucus (None Prsent) Urine Yeast (None Prsent) Ur Random Creatinine mg/dl Ur Random Sodium mmol/L Stl C. diff Tox B Gene (Neg) Stl C.difficile Tox A&B (Negative) SARS-CoV-2, RNA, NAAT NEGATIVE (NEGATIVE) 07/12/22 07/12/22 Range/Units 21:43 21:43 WBC 7.56 (4.8-10.8) K/ul RBC 4.30 (3.93-5.22) M/uL Hgb 12.7 (12.0-16.0) g/dl Hct 39.5 (34.1-44.9) % MCV 91.9 (80.0-100.0) fL MCH 29.5 (25.0-34.0) pg MCHC 32.2 (32.0-36.0) g/dL RDW Std Deviation 44.2 (36.4-46.3) fL RDW Coeff of Elyssa 13.2 (11.5-14.5) % Plt Count 294 (130-400) K/uL MPV 10.5 (9.4-12.3) fL Immature Gran % (Auto) 0.4 % Neut % (Auto) 86.5 % Lymph % (Auto) 2.8 % [place] % (Auto) 6.6 % Eos % (Auto) 3.3 % Baso % (Auto) 0.4 % Neut # (Auto) 6.54 H (1.4-6.5) K/uL Lymph # (Auto) 0.21 L (1.2-3.4) K/uL [place] # (Auto) 0.50 (0.24-0.82) K/uL Eos # (Auto) 0.25 (0-0.50) K/uL Baso # (Auto) 0.03 (0-0.2) K/uL Immature Gran # (Auto) 0.03 H (0.00-0.02) K/uL Sodium 133 L (136-145) mmol/L Potassium 3.9 (3.5-5.1) mmol/L Chloride 96 L (98-107) mmol/L Carbon Dioxide 21 (21-32) mmol/L Anion Gap 16 H (3-11) BUN 34 H (6-23) mg/dl Creatinine 3.70 H (0.6-1.2) mg/dl Est Cr Clr Drug Dosing Not Reportable Est GFR ( Amer) 15.1 ml/min Est GFR (Non-Af Amer) 13.0 ml/min BUN/Creatinine Ratio 9.2 L (10-20) Glucose 91 (70-99(Fasting)) mg/dl Lactate (0.4-2.0) mmol/L Calcium 8.7 (8.5-10.1) mg/dl Magnesium 2.5 H (1.7-2.4) mg/dl Total Bilirubin 0.4 (0.2-1.0) mg/dl AST 19 (13-39) U/L ALT 12 (7-52) U/L Alkaline Phosphatase 67 (34-104) U/L Total Creatine Kinase 68 (26-192) U/L Troponin I High Sens 5.2 (0-14) pg/ml Total Protein 6.8 (6.0-8.3) gm/dl Albumin 3.3 L (3.4-5.0) gm/dl Globulin 3.5 (2.5-4.0) gm/dl Albumin/Globulin Ratio 0.9 (0.9-2) Prealbumin (20-40) mg/dl Procalcitonin (0-0.5) ng/ml TSH (0.300-4.500) uIu/ml Urine Color Urine Appearance (Clear) Urine pH (4.5-7.5) Ur Specific [place] (1.000-1.030) Urine Protein (Negative) Urine Glucose (UA) (Negative) Urine Ketones (Negative) Urine Blood (Negative) Urine Nitrite (Negative) Urine Bilirubin (Negative) Urine Urobilinogen (Negative) Ur Leukocyte Esterase (Negative) Urine WBC (Auto) (0-5) /hpf Urine RBC (Auto) (0-4) /hpf U Hyaline Cast (Auto) (0-5) /lpf U Epithel Cells (Auto) (0-5) /lpf Urine Bacteria (Auto) (Negative) Urine Mucus (None Prsent) Urine Yeast (None Prsent) Ur Random Creatinine mg/dl Ur Random Sodium mmol/L Stl C. diff Tox B Gene (Neg) Stl C.difficile Tox A&B (Negative) SARS-CoV-2, RNA, NAAT (NEGATIVE) Resident Activity Tracking Resident Involvement: Resident Care Provided Care Provided: Adult Hospital Medicine
--- NOTE | 2021-10-05 11:18 | Electrocardiogram Report ---
Test Reason : Blood Pressure : / mmHG Vent. Rate : 083 BPM Atrial Rate : 083 BPM P-R Int : 172 ms QRS Dur : 106 ms QT Int : 416 ms P-R-T Axes : 049 016 042 degrees QTc Int : 488 ms Normal sinus rhythm Prolonged QT Abnormal ECG When compared with ECG of 06-FEB-2016 11:00, Nonspecific T wave abnormality no longer evident in Lateral leads Confirmed by Yony Sanders ([id number]) on 10/05/2021 11:18:22 AM Referred By: REFERRED SELF Confirmed By:Adolfo Sanders
[2021-10-05 12:52] LABS: Cdiff Antigen Positive
[2021-10-05 12:53] LABS: Cdiff Toxin A+B Negative Cdiff Toxin (Negative)
[2021-10-05 16:06] LABS: BUN Creatinine Ratio 18.6 (10-20); Calcium 6.9 mg/dl (8.5-10.1); Creatinine Clr Calc Pharmacy 30.1 ml/min; Est GFR (African American) 39.5 ml/min; Est GFR (Non-African American) 34.1 ml/min; Potassium 3.6 mmol/L (3.5-5.1)
[2021-10-05] MEDS: HYDROmorphone INJ 0.5 MG/0.5 ML SYR IV PRN (20:23)
[2021-10-05] MEDS: NORTRIPTYLINE HCL 25 MG CAP PO SCH (20:34)
[2021-10-05] MEDS: ATORVASTATIN 40 MG TAB PO SCH (20:35)
[2021-10-05] MEDS ORDERED: PIPERACILLIN/TAZOBACTAM 2.25 GM in DEXTROSE 5% 100 ML IV SCH (21:00)
[2021-10-05] MEDS: PIPERACILLIN/TAZOBACTAM 3.375 GM in DEXTROSE 5% 100 ML IV SCH (21:58)
[2021-10-06] MEDS: FIRST - Mouthwash BLM 119 ML PO SCH ×6 (03:27→21:03)
[2021-10-06 03:33] LABS: Adenovirus F 40/41 PCR Not Detected (NotDetected); Astrovirus PCR Not Detected (NotDetected); Campylobacter PCR Not Detected (NotDetected); Cryptosporidium PCR Not Detected (NotDetected); Cyclospora cayetanensis PCR Not Detected (NotDetected); Entamoeba histolytica PCR Not Detected (NotDetected); Enteroaggregative E.coli(EAEC) Not Detected (NotDetected); Enteropathogenic E.coli (EPEC) Not Detected (NotDetected); Enterotoxigenic E.coli (ETEC) Not Detected (NotDetected); Giardia lamblia PCR Not Detected (NotDetected); Norovirus GI/GII PCR Not Detected (NotDetected); Plesiomonas shigelloides PCR Not Detected (NotDetected); Rotavirus A PCR Not Detected (NotDetected); Salmonella PCR Not Detected (NotDetected); Sapovirus PCR Not Detected (NotDetected); Shiga-like Toxin E.coli (STEC) Not Detected (NotDetected); Shigella/Enteroinvasive E.coli Not Detected (NotDetected); Vibrio cholerae PCR Not Detected (NotDetected); Vibrio species PCR Not Detected (NotDetected); Yersinia enterocolitica PCR Not Detected (NotDetected)
[2021-10-06] MEDS: HYDROmorphone INJ 0.5 MG/0.5 ML SYR IV PRN ×4 (04:38→20:59)
[2021-10-06] MEDS: LACTATED RINGER'S 1,000 ML IV SCH ×3 (04:38→18:13)
[2021-10-06 05:08] LABS: Cdiff Antigen Positive; Cdiff Toxin A+B Negative Cdiff Toxin (Negative)
[2021-10-06] MEDS: PIPERACILLIN/TAZOBACTAM 3.375 GM in DEXTROSE 5% 100 ML IV SCH ×3 (05:25→21:53)
[2021-10-06 08:01] LABS: Hematocrit (blood only) 31.6 % (34.1-44.9); Hemoglobin 10.1 g/dl (12.0-16.0); Mean Corpuscular Hemoglobin 28.8 pg (25.0-34.0); Mean Platelet Volume 10.6 fL (9.4-12.3); Platelet Count 182 K/uL (130-400); RDW Coefficient of Variation 12.8 % (11.5-14.5); RDW Standard Deviation 42.1 fL (36.4-46.3); Red Blood Count 3.51 M/uL (3.93-5.22); White Blood Count 7.53 K/ul (4.8-10.8)
--- NOTE | 2021-10-06 08:14 | Hospitalist Progress Note ---
Date of Service October 06, 2021 Assessment & Plan (1) Acute kidney injury: Plan: Corin Peralta is a 56yo female with PMHx significant for stage 3 oropharyngeal carcinoma (just finished RTx), CAD (s/p NSTEMI, no stents), COPD (no home O2), HTN, dyslipidemia, and previous smoker (40 pack year history, quit several months ago) who presented to [facility] ED on 10/05 for subjective fever/chills, vomiting, decreased PO intake and worsening neck redness/pain for several days. Neck Cellulitis; Hypotension Patient reports neck redness/discharge throughout course of radiation tx although does report worsening of rash/discharge/pain over last several days. Given subjective fever/chills and decreased appetite, in addition to profound hypotension on presentation, cellulitis is a likely possibility. Patient does not appear septic (SIRS 1/4, qSOFA 1/3, lactate WNL), given that she is immunocompromised, more aggressive treatment is warranted. - s/p Ancef 2g IV, will continue with broad abx coverage with Daptomycin/Zosyn, renally dosed - blood cx taken AFTER Ancef - trend and adjust abx as necessary - cont. maintenance LRs - PRN Tylenol for fever - wound care following, cont. daily dressing changes - trend CBC in AM - PT/OT ordered ALEJANDRO, resolved Cr 3.7, BUN:Cr ratio <10:1.. Given history of nausea/vomiting/decreased PO intake for several days, suspect ATN following initial pre-renal injury, which is likely an adverse outcome of last round of radiation tx. However underlying infection may also be playing a role (see below). Patient is not anuric/oliguric. - Cr 0.63, improved with hydration - s/p 3L NSS boluses, maintenance 150mLs - reduce to LR 80cc/hr - US renal: R renal cyst otherwise normal - FeNa 1.4% - Urine sediment neg for granular casts - Nephrology consulted - trend BMP in AM Nonbloody Diarrhea, resolving -contributing to fluid status and ALEJANDRO -c. diff gene position, tox neg; on contact precautions -GI PCR neg -Ova + parasite panel pend -nutrition consulted Hyponatremia, stable Na 133, likely hypotonic hypovolemic hyponatremia in context of above. - IVFs, trend in AM CAD/HLD -continue home Aspirin, Atorvastatin HTN -hold home Losartan and Metoprolol due to hypotension Depression -continue home Cymbalta and Levomilnacipran GERD -continue home Protonix COPD -continue home inhalers FEN/GI: full liquid diet; IVFs as stated above DVT Prophylaxis: Heparin SQ Code Status: full code Disposition: PCU (2) Cellulitis of neck: (3) Acute hypotension: (4) CAD (coronary artery disease): (5) Hypertension: (6) Dyslipidemia: (7) Depression: Admission and Anticipated Discharge Date Admission Date: October 05, 2021 Supervising Physician Co-Signing Physician Notes Patient seen and examined independently PGY-2 Dr. Patterson. Agree with history, exam findings, assessment and plan of care as outlined. In brief, Ms. Peralta is a 56 year old female with history of history of oropharyngeal cancer (stage 3) undergoing radiation, NSTEMI, COPD, HTN, HLD admitted with fever, chills, vomiting and loose stool, found to have ALEJANDRO. Loose stools have been better. However, mouth has been more sore and and has noticed some bleeding from the palate and around the tongue area. Neck has been feeling ok. Dressing was changed earlier today. VS and nursing notes reviewed. Non-toxic appearing. Moist mucus membranes, but oozing from the right hard palate and along the inner lower lip. Neck--area is covered with kerlex dressing. Reviewed pictures from wound care. Heart with regular and rhythm. Lungs are clear to auscultation throughout Abdomen is soft, non-tender. Labs and imaging reviewed. 1. ALEJANDRO. Pre-renal. Improving. Renal ultrasound without signs of obstruction. FeNa 1.4%. Resolved. Cr 0.63. 2. Cellulitis, neck. Following radiation--most consistent with burn. Treating with dapto and zosyn (MRSA and pseduomoas coverage). Blood cultures are negative thus far. Appreciate wound care recommendations. 3. Hyponatremia. resolved. 4. Diarrhea. Improved. GI biofire negative. 5. hypotension. Improved. 6. oral ulcers, bleeding. Oral care--swish and spit. Nutrition consult--appreciate recommendations to attempt to maintain nutrition in the setting of oral pain. Dispo: pending clinical improvement. Subjective Patient seen at bedside this morning. Says her neck wound has been feeling sticky and wet under the dressing. Left forearm more swollen than yesterday but denies hand pain, erythema, redness, numbness/tingling. Had some nausea over night but no vomiting. Also thinks the magic mouthwash is making her tongue bleed, had to get suctioned overnight. Diarrhea improving. Review of Systems Review of Systems: All systems reviewed & are unremarkable except as noted in HPI & below Physical Exam Physical Exam: General: AOx3. NAD. Cooperative. Thin. HEENT: NCAT. Moist mucous membranes. Neck: neck cellulitis covered in dressing, edges of dressing draining yellow pus. Pulm: CTAB. no wheezes, rales, rhonchi. Symmetrical chest rise. No increase work of breathing. No respiratory distress. Cardiac: RRR, no murmurs. Abdominal: soft, minimal abdominal tenderness, nondistended, no guarding, +BS Skin: warm, dry; L forearm pulse present, good strength, no tenderness/warmth/erythema Results & Data Results & Data ([facility]) Vital Signs (Past 12 Hours) Vital Signs Temp Pulse Pulse Resp BP Pulse Ox O2 Del Method 10/06/21 07:04 36.7 C 101 H 16 116/75 92 Room Air 10/06/21 03:23 37.0 C 103 H 18 111/69 97 Room Air 10/06/21 02:19 86 10/05/21 23:06 36.8 C 96 H 18 108/66 97 Room Air Laboratory Results 10/06/21 10/06/21 10/06/21 Range/Units 11:28 10:25 07:29 WBC 7.53 (4.8-10.8) K/ul RBC 3.51 L (3.93-5.22) M/uL Hgb 10.1 L (12.0-16.0) g/dl Hct 31.6 L (34.1-44.9) % MCV 90.0 (80.0-100.0) fL MCH 28.8 (25.0-34.0) pg MCHC 32.0 (32.0-36.0) g/dL RDW Std Deviation 42.1 (36.4-46.3) fL RDW Coeff of Elyssa 12.8 (11.5-14.5) % Plt Count 182 (130-400) K/uL MPV 10.6 (9.4-12.3) fL Immature Gran % (Auto) 0.5 % Neut % (Auto) 81.5 % Lymph % (Auto) 3.6 % Calhoun % (Auto) 10.4 % Eos % (Auto) 3.6 % Baso % (Auto) 0.4 % Neut # (Auto) 6.14 (1.4-6.5) K/uL Lymph # (Auto) 0.27 L (1.2-3.4) K/uL Calhoun # (Auto) 0.78 (0.24-0.82) K/uL Eos # (Auto) 0.27 (0-0.50) K/uL Baso # (Auto) 0.03 (0-0.2) K/uL Immature Gran # (Auto) 0.04 H (0.00-0.02) K/uL Echinocytes 2+ Sodium (136-145) mmol/L Potassium (3.5-5.1) mmol/L Chloride (98-107) mmol/L Carbon Dioxide (21-32) mmol/L Anion Gap (3-11) BUN (6-23) mg/dl Creatinine (0.6-1.2) mg/dl Est Cr Clr Drug Dosing ml/min Est GFR ( Amer) ml/min Est GFR (Non-Af Amer) ml/min BUN/Creatinine Ratio (10-20) Glucose (70-99(Fasting)) mg/dl POC Glucose 85 (70-99) mg/dl Calcium (8.5-10.1) mg/dl Nasal Screen MRSA (PCR) Negative (Negative) Stl C. cayetanensis PCR (NotDetected) Stool Rotavirus A PCR (NotDetected) Stl Adenov F 40/41 PCR (NotDetected) Stool Astrovirus (PCR) (NotDetected) Stool Campylobacter PCR (NotDetected) Stl C.difficile Tox A&B (Negative) Stl C. diff Tox A/B PCR (NotDetected) Stool Cryptosporidium PCR (NotDetected) Stl E.coli Shiga Tox PCR (NotDetected) Stl Enterotoxigenic E PCR (NotDetected) Stool EPEC (PCR) (NotDetected) Stool EAEC (PCR) (NotDetected) Stl E. histolytica PCR (NotDetected) Stool Giardia Lamblia PCR (NotDetected) Stool Salmonella PCR (NotDetected) Stool Sapovirus (PCR) (NotDetected) Stl P. shigelloides PCR (NotDetected) Stl Shigella/EIEC PCR (NotDetected) St Y.enterocolitica PCR (NotDetected) Stool Vibrio (PCR) (NotDetected) Stl Vibrio cholerae PCR (NotDetected) Stl Norovirus GI/GII PCR (NotDetected) Stool Comments 10/06/21 10/06/21 10/06/21 Range/Units 07:29 02:10 02:10 WBC (4.8-10.8) K/ul RBC (3.93-5.22) M/uL Hgb (12.0-16.0) g/dl Hct (34.1-44.9) % MCV (80.0-100.0) fL MCH (25.0-34.0) pg MCHC (32.0-36.0) g/dL RDW Std Deviation (36.4-46.3) fL RDW Coeff of Elyssa (11.5-14.5) % Plt Count (130-400) K/uL MPV (9.4-12.3) fL Immature Gran % (Auto) % Neut % (Auto) % Lymph % (Auto) % Calhoun % (Auto) % Eos % (Auto) % Baso % (Auto) % Neut # (Auto) (1.4-6.5) K/uL Lymph # (Auto) (1.2-3.4) K/uL Calhoun # (Auto) (0.24-0.82) K/uL Eos # (Auto) (0-0.50) K/uL Baso # (Auto) (0-0.2) K/uL Immature Gran # (Auto) (0.00-0.02) K/uL Echinocytes Sodium 138 (136-145) mmol/L Potassium 3.0 L (3.5-5.1) mmol/L Chloride 105 (98-107) mmol/L Carbon Dioxide 23 (21-32) mmol/L Anion Gap 10 (3-11) BUN 16 (6-23) mg/dl Creatinine 0.63 D (0.6-1.2) mg/dl Est Cr Clr Drug Dosing 79.8 ml/min Est GFR ( Amer) 117.0 ml/min Est GFR (Non-Af Amer) 101.0 ml/min BUN/Creatinine Ratio 25.4 H (10-20) Glucose 85 (70-99(Fasting)) mg/dl POC Glucose (70-99) mg/dl Calcium 7.2 L (8.5-10.1) mg/dl Nasal Screen MRSA (PCR) (Negative) Stl C. cayetanensis PCR Not Detected (NotDetected) Stool Rotavirus A PCR Not Detected (NotDetected) Stl Adenov F 40/41 PCR Not Detected (NotDetected) Stool Astrovirus (PCR) Not Detected (NotDetected) Stool Campylobacter PCR Not Detected (NotDetected) Stl C.difficile Tox A&B Negative Cdiff Toxin (Negative) Stl C. diff Tox A/B PCR C.diff Gene Detected A (NotDetected) Stool Cryptosporidium PCR Not Detected (NotDetected) Stl E.coli Shiga Tox PCR Not Detected (NotDetected) Stl Enterotoxigenic E PCR Not Detected (NotDetected) Stool EPEC (PCR) Not Detected (NotDetected) Stool EAEC (PCR) Not Detected (NotDetected) Stl E. histolytica PCR Not Detected (NotDetected) Stool Giardia Lamblia PCR Not Detected (NotDetected) Stool Salmonella PCR Not Detected (NotDetected) Stool Sapovirus (PCR) Not Detected (NotDetected) Stl P. shigelloides PCR Not Detected (NotDetected) Stl Shigella/EIEC PCR Not Detected (NotDetected) St Y.enterocolitica PCR Not Detected (NotDetected) Stool Vibrio (PCR) Not Detected (NotDetected) Stl Vibrio cholerae PCR Not Detected (NotDetected) Stl Norovirus GI/GII PCR Not Detected (NotDetected) Stool Comments Pending Resident Activity Tracking Resident Involvement: Resident Care Provided Care Provided: Adult Hospital Medicine
--- NOTE | 2021-10-06 08:28 | Nephrology Progress Note ---
Date of Service October 06, 2021 Assessment & Plan (1) Acute kidney injury: Plan: * Baseline Cr unknown * ALEJANDRO on the basis of poor oral intake/profound dehydration in the setting of ARB therapy * Cr improved from 2.2 to 0.63 overnight following IV hydration * Net 7 L volume positive since admission * FeNa 1.4% * Urine sediment is negative for granular casts * Renal US negative for obstruction * Recommend reducing IVF to 80 cc/hr and supplementing serum potassium * Kidney function has recovered. No further Nephrology evaluation indicated at this time. Will sign off. Please call if further assistance is needed (2) Hypertension: Plan: * BP acceptable * Continue to hold Lisinopril (3) Cellulitis: Plan: * Blood cultures are NGTD * Continue Zosyn and Daptomycin Admission and Anticipated Discharge Date Admission Date: October 05, 2021 Subjective Ms. Peralta was evaluated in her hospital room this morning. She is tolerating IV hydration without dyspnea. Her primary complaint is diarrhea Review of Systems Constitutional: no fever Eyes: no problem reported Respiratory: no dyspnea Cardiovascular: no chest pain Gastrointestinal: no abdominal pain, no nausea and no vomiting Neurologic: + generalized weakness Physical Exam Constitutional: + ill appearing Eyes: PERRL, conjunctivae normal, anicteric sclerae ENMT: neck w/ clean bulky Kerlix dressing in place Respiratory: normal respiratory effort, lungs clear to auscultation Cardiovascular: RRR, no murmur, no edema Gastrointestinal (Abdomen): normal bowel sounds, soft, nontender, no hepatosplenomegaly Results & Data ([facility]) Vital Signs (Past 12 Hours) Vital Signs Temp Pulse Pulse Resp BP Pulse Ox O2 Del Method 10/06/21 07:04 36.7 C 101 H 16 116/75 92 Room Air 10/06/21 03:23 37.0 C 103 H 18 111/69 97 Room Air 10/06/21 02:19 86 10/05/21 23:06 36.8 C 96 H 18 108/66 97 Room Air Laboratory Results Laboratory Tests 10/06/21 10/06/21 07:29 07:29 WBC 7.53 Hgb 10.1 L Hct 31.6 L Plt Count 182 Sodium 138 Potassium 3.0 L Chloride 105 Carbon Dioxide 23 BUN 16 Creatinine 0.63 D PG Care Time/CCT Total # of Minutes Spent Total Time Spent with Patient: Total time spent is greater than 50% in coordination of care (as documented) at patient's floor/unit and/or counseling patient: Coding Level of Care Code 28148 Subseq Hosp Care Lvl 2 Diagnoses Acute kidney injury N17.9 Hypertension I10 Cellulitis L03.90
[2021-10-06 08:36] LABS: Basophils # (auto) 0.03 K/uL (0-0.2); Basophils % (auto) 0.4 %; Echinocytes 2+; Eosinophils # (auto) 0.27 K/uL (0-0.50); Eosinophils % (auto) 3.6 %; Immature Granulocytes # (auto) 0.04 K/uL (0.00-0.02); Immature Granulocytes % (auto) 0.5 %; Lymphocytes # (auto) 0.27 K/uL (1.2-3.4); Lymphocytes % (auto) 3.6 %; Monocytes # (auto) 0.78 K/uL (0.24-0.82); Monocytes % (auto) 10.4 %; Neutrophils # (auto) 6.14 K/uL (1.4-6.5); Neutrophils % (auto) 81.5 %
[2021-10-06 08:42] LABS: BUN Creatinine Ratio 25.4 (10-20); Calcium 7.2 mg/dl (8.5-10.1); Creatinine Clr Calc Pharmacy 79.8 ml/min
[2021-10-06] MEDS ORDERED: POTASSIUM CHLORIDE CRTAB 20 MEQ TABCR PO STA (09:06)
[2021-10-06] MEDS: ASPIRIN 81 MG ECTAB PO SCH (09:37)
[2021-10-06] MEDS: PANTOprazole 40 MG TAB PO SCH (09:37)
[2021-10-06] MEDS: HEPARIN SOD 5,000 UNIT/0.5 ML VIAL SQ SCH ×2 (09:38→21:02)
[2021-10-06] MEDS: UMECLIDINIUM BROMIDE 62.5MCG/BLISTER 7 PUFFS/INHALER INH SCH (09:38)
[2021-10-06] MEDS ORDERED: PIPERACILLIN/TAZOBACTAM 3.375 GM in DEXTROSE 5% 100 ML IV SCH (11:45)
[2021-10-06] MEDS: DAPTOmycin 225 MG in SYRINGE 0 ML IV SCH (12:59)
[2021-10-06] MEDS: ACETAMINOPHEN 500 MG TAB PO PRN (14:39)
[2021-10-06] MEDS: ATORVASTATIN 40 MG TAB PO SCH (21:02)
[2021-10-06] MEDS: NORTRIPTYLINE HCL 25 MG CAP PO SCH (21:02)
[2021-10-07] MEDS ORDERED: DAPTOmycin 225 MG in SYRINGE 0 ML IV SCH
[2021-10-07] MEDS ORDERED: DAPTOmycin 300 MG in SYRINGE 0 ML IV SCH
[2021-10-07] MEDS: FIRST - Mouthwash BLM 119 ML PO SCH ×6 (00:51→19:59)
[2021-10-07] MEDS: MELATONIN 3 MG TAB PO PRN (00:53)
[2021-10-07] MEDS: ACETAMINOPHEN 500 MG TAB PO PRN ×2 (00:55→21:11)
[2021-10-07] MEDS: HYDROmorphone INJ 0.5 MG/0.5 ML SYR IV PRN ×4 (02:54→23:39)
[2021-10-07] MEDS: PIPERACILLIN/TAZOBACTAM 3.375 GM in DEXTROSE 5% 100 ML IV SCH ×2 (06:03→13:55)
[2021-10-07] MEDS: LACTATED RINGER'S 1,000 ML IV SCH ×2 (06:05→20:07)
[2021-10-07 07:38] LABS: BUN Creatinine Ratio 14.3 (10-20); Calcium 7.1 mg/dl (8.5-10.1); Creatinine Clr Calc Pharmacy 143.6 ml/min; Est GFR (Non-African American) 122.5 ml/min; Potassium 2.7 mmol/L (3.5-5.1)
[2021-10-07] MEDS ORDERED: POTASSIUM CHLORIDE CRTAB 20 MEQ TABCR PO STA (08:52)
[2021-10-07] MEDS: UMECLIDINIUM BROMIDE 62.5MCG/BLISTER 7 PUFFS/INHALER INH SCH (09:10)
[2021-10-07] MEDS: PANTOprazole 40 MG TAB PO SCH (09:11)
[2021-10-07] MEDS: HEPARIN SOD 5,000 UNIT/0.5 ML VIAL SQ SCH ×2 (09:11→19:57)
[2021-10-07] MEDS: ASPIRIN 81 MG ECTAB PO SCH (09:12)
[2021-10-07] MEDS ORDERED: POTASSIUM CHLORIDE 20 MEQ/15 ML UDC PO STA (09:20)
[2021-10-07] MEDS ORDERED: POTASSIUM CHLORIDE CRTAB 20 MEQ TABCR PO ONE (12:00)
[2021-10-07] MEDS ORDERED: POTASSIUM CHLORIDE 20 MEQ/15 ML UDC PO ONE (12:00)
--- NOTE | 2021-10-07 12:23 | Ultrasound Report ---
US venous doppler UE LT CLINICAL HISTORY: Left arm swelling Procedure: Left upper extremity real-time compression venous ultrasound with Duplex and Color Doppler imaging. Utilizing real-time ultrasonic imaging multiple real time high-resolution ultrasonic images of the de ep venous system were performed from the forearm to the subclavian vein. However, there is limited e valuation present due to IVs and healing skin graft. There are also radiation therapy to the neck are a. Compression real time ultrasonic imaging was performed in addition to color Doppler imaging and du plex Doppler ultrasound with velocity spectral profile analysis. There is normal compressibility of the deep venous system from the forearm to the subclavian vein. No rmal vascular flow is currently identified. No evidence of acute thrombosis is identified. Impression: 1. No evidence of deep venous thrombus within the visualized portion of the left arm. The left jugula r and subclavian veins are not visualized due to bandages.. ACT 112: Negative or not required by law. Electronically signed by: Christiano Hurd M.D. 10/07/2021 12:22 PM
[2021-10-07] MEDS: METOPROLOL SUCC 50MG EXT REL TAB PO SCH (12:39)
[2021-10-07] MEDS: LOSARTAN POTASSIUM 50 MG TAB PO SCH (12:39)
[2021-10-07] MEDS: DAPTOmycin 225 MG in SYRINGE 0 ML IV SCH (14:53)
[2021-10-07] MEDS: POTASSIUM CHLORIDE / WTR 10 MEQ/100 ML PLCT IV SCH ×6 (15:33→21:08)
[2021-10-07] MEDS ORDERED: POLYETHYLENE (MIRALAX) 17 GM PACK PO PRN (15:40)
--- NOTE | 2021-10-07 16:03 | Hospitalist Progress Note ---
Date of Service October 07, 2021 Assessment & Plan (1) Acute kidney injury: Plan: Corin Peralta is a 56yo female with PMHx significant for stage 3 oropharyngeal carcinoma (just finished RTx), CAD (s/p NSTEMI, no stents), COPD (no home O2), HTN, dyslipidemia, and previous smoker (40 pack year history, quit several months ago) who presented to [facility] ED on 10/05 for subjective fever/chills, vomiting, decreased PO intake and worsening neck redness/pain for several days. Neck Cellulitis; Hypotension Patient reports neck redness/discharge throughout course of radiation tx although does report worsening of rash/discharge/pain over last several days. Given subjective fever/chills and decreased appetite, in addition to profound hypotension on presentation, cellulitis is a likely possibility. Patient does not appear septic (SIRS 1/4, qSOFA 1/3, lactate WNL), given that she is immunocompromised, more aggressive treatment is warranted. - blood cx taken AFTER Ancef negative - cont. maintenance LRs 80mL - PRN Tylenol for fever - wound care following, cont. daily dressing changes - s/p Ancef 2g IV in ED, d/c'd dapto and zosyn (10/07); will transition to Augmentin suspension 875mg bid. This will cover staph/strep as well as anaerobes in case of oropharyngeal involvement. Will opt not to cover for pseudomonas at this time given low risk 2/2 minimal body surface area involvement. Given extent of infection, will want to treat for 14 days total abx (day #3). - cont. PT/OT ALEJANDRO, resolved Cr 3.7, BUN:Cr ratio <10:1.. Given history of nausea/vomiting/decreased PO intake for several days, suspect ATN following initial pre-renal injury, which is likely an adverse outcome of last round of radiation tx. However underlying infection may also be playing a role (see below). Patient is not anuric/oliguric. - Cr 0.35, improved with hydration - s/p 3L NSS boluses, maintenance 150mLs - reduced to LR 80cc/hr - US renal: R renal cyst otherwise normal - FeNa 1.4% - Urine sediment neg for granular casts - Nephrology consulted, signed off at this time - trend BMP in AM Nonbloody Diarrhea, resolving -contributing to fluid status and ALEJANDRO -c. diff gene position, tox neg; on contact precautions -GI PCR neg -Ova + parasite panel pend -nutrition consulted Hyponatremia, resolved Na 139, likely hypotonic hypovolemic hyponatremia in context of above. - IVFs Hypokalemia -K 2.7 -not tolerating oral potassium due to oropharyngeal cancer and neck cellulitis -replenished with IV potassium -recheck am CAD/HLD -continue home Aspirin, Atorvastatin HTN -restarted home Losartan and Metoprolol; initially held due to hypotension Depression -continue home Cymbalta and Levomilnacipran GERD -continue home Protonix COPD -continue home inhalers FEN/GI: full liquid diet; IVFs as stated above DVT Prophylaxis: Heparin SQ Code Status: full code Disposition: med surg (2) Cellulitis of neck: (3) Acute hypotension: (4) CAD (coronary artery disease): (5) Hypertension: (6) Dyslipidemia: (7) Depression: Admission and Anticipated Discharge Date Admission Date: October 05, 2021 Supervising Physician Co-Signing Physician Notes Attending attestation Pt seen and examined in concert with Dr. Patterson. In agreement with the documented findings as noted in the resident documentation with any exceptions or additions as noted here. 56 year old female h/o oropharyngeal cancer (stage 3) undergoing radiation, NSTEMI, COPD, HTN, HLD w/ fever, chills, vomiting and loose stool, found to have ALEJANDRO. Gradual improvement of neck pain, redness on current therapy. Dressing change today. Loose stools stable/improved, non-cdiff on evaluation On examination, S1/S2 nl RRR no MCG. CTAB. Abd NT/ND BS+ve. Neck with visible scant purulence with diffuse erythema surrounding on the anterior surface. Cellulitis of the neck - wound care consult - Cx NGTD currently on dapto and zosyn, can taper abx to PO to complete course with monitoring for continued improvement and broadened coverage if required Else see resident documentation as noted. Subjective Patient seen at bedside this morning. No more diarrhea. Neck cellulitis less painful thinks it's improving. Left forearm more swollen than yesterday with some pain over skin graft site from june. Mouth ulcers still bleeding but better than yesterday. Review of Systems Review of Systems: All systems reviewed & are unremarkable except as noted in HPI & below Physical Exam Physical Exam: General: AOx3. NAD. Cooperative. Thin. HEENT: NCAT. Moist mucous membranes. Neck: neck cellulitis covered in dressing, edges that can be seen improved from previous Pulm: CTAB. no wheezes, rales, rhonchi. Symmetrical chest rise. No increase work of breathing. No respiratory distress. Cardiac: RRR, no murmurs. Abdominal: soft, minimal abdominal tenderness, nondistended, no guarding, +BS Skin: warm, dry; L forearm pulse present, increasing edema, worsening gateman strength, mild pain with palpation over previous skin graft site, no excessive warmth/erythema, no pallor, not cool to touch Results & Data Results & Data ([facility]) Vital Signs (Past 12 Hours) Vital Signs Temp Pulse Pulse Resp BP BP Pulse Ox 10/07/21 15:09 36.3 C L 76 16 167/84 H 99 10/07/21 12:38 77 145/85 H 96 10/07/21 07:32 36.8 C 101 H 16 142/87 H 98 O2 Del Method 10/07/21 15:09 Room Air 10/07/21 12:38 Room Air 10/07/21 07:32 Room Air Laboratory Results 10/07/21 10/06/21 Range/Units 06:19 16:24 Sodium 139 (136-145) mmol/L Potassium 2.7 L (3.5-5.1) mmol/L Chloride 102 (98-107) mmol/L Carbon Dioxide 26 (21-32) mmol/L Anion Gap 11 (3-11) BUN 5 L (6-23) mg/dl Creatinine 0.35 L (0.6-1.2) mg/dl Est Cr Clr Drug Dosing 143.6 ml/min Est GFR ( Amer) 142.0 ml/min Est GFR (Non-Af Amer) 122.5 ml/min BUN/Creatinine Ratio 14.3 (10-20) Glucose 86 (70-99(Fasting)) mg/dl POC Glucose 80 (70-99) mg/dl Calcium 7.1 L (8.5-10.1) mg/dl Resident Activity Tracking Resident Involvement: Resident Care Provided Care Provided: Adult [facility] Medicine
[2021-10-07] MEDS: AMOXICILLIN PO SCH (19:57)
[2021-10-07] MEDS: CLAVULANATE PO SCH (19:57)
[2021-10-07] MEDS: ATORVASTATIN 40 MG TAB PO SCH (19:58)
[2021-10-07] MEDS: NORTRIPTYLINE HCL 25 MG CAP PO SCH (19:58)
[2021-10-08] MEDS: FIRST - Mouthwash BLM 119 ML PO SCH ×6 (02:06→20:42)
[2021-10-08 07:23] LABS: Hematocrit (blood only) 31.7 % (34.1-44.9); Hemoglobin 10.7 g/dl (12.0-16.0); Mean Corpuscular Hemoglobin 29.2 pg (25.0-34.0); Mean Corpuscular Hgb Conc 33.8 g/dL (32.0-36.0); Mean Corpuscular Volume 86.6 fL (80.0-100.0); Mean Platelet Volume 10.1 fL (9.4-12.3); Platelet Count 183 K/uL (130-400); RDW Coefficient of Variation 12.6 % (11.5-14.5); RDW Standard Deviation 40.1 fL (36.4-46.3); Red Blood Count 3.66 M/uL (3.93-5.22)
[2021-10-08] MEDS: AMOXICILLIN PO SCH ×2 (07:33→21:30)
[2021-10-08] MEDS: LACTATED RINGER'S 1,000 ML IV SCH ×2 (07:33→20:42)
[2021-10-08] MEDS: CLAVULANATE PO SCH ×2 (07:33→21:30)
[2021-10-08] MEDS: LOSARTAN POTASSIUM 50 MG TAB PO SCH (07:34)
[2021-10-08] MEDS: HEPARIN SOD 5,000 UNIT/0.5 ML VIAL SQ SCH ×2 (07:37→20:42)
[2021-10-08] MEDS: PANTOprazole 40 MG TAB PO SCH (07:37)
[2021-10-08] MEDS: METOPROLOL SUCC 50MG EXT REL TAB PO SCH (07:38)
[2021-10-08] MEDS: ASPIRIN 81 MG ECTAB PO SCH (07:38)
[2021-10-08 07:39] LABS: Anion Gap 11 (3-11); Blood Urea Nitrogen < 2 mg/dl (6-23); Carbon Dioxide 31 mmol/L (21-32); Chloride 96 mmol/L (98-107); Creatinine Clr Calc Pharmacy 179.5 ml/min; Est GFR (African American) > 150.0 ml/min; Est GFR (Non-African American) 131.9 ml/min; Glucose 87 mg/dl (70-99(Fasting)); Potassium 2.7 mmol/L (3.5-5.1); Sodium 138 mmol/L (136-145)
[2021-10-08] MEDS: UMECLIDINIUM BROMIDE 62.5MCG/BLISTER 7 PUFFS/INHALER INH SCH (07:39)
[2021-10-08] MEDS: HYDROmorphone INJ 0.5 MG/0.5 ML SYR IV PRN ×2 (07:44→15:14)
[2021-10-08] MEDS: POTASSIUM CHLORIDE / WTR 10 MEQ/100 ML PLCT IV SCH ×6 (08:14→15:10)
[2021-10-08] MEDS: MAGNESIUM OXIDE 400 MG TAB PO SCH (09:59)
--- NOTE | 2021-10-08 10:05 | Hospitalist Progress Note ---
Date of Service October 08, 2021 Assessment & Plan (1) Acute kidney injury: Plan: Corin Peralta is a 56yo female with PMHx significant for stage 3 oropharyngeal carcinoma (just finished RTx), CAD (s/p NSTEMI, no stents), COPD (no home O2), HTN, dyslipidemia, and previous smoker (40 pack year history, quit several months ago) who presented to [facility] ED on 10/05 for subjective fever/chills, vomiting, decreased PO intake and worsening neck redness/pain for several days. Cellulitis of neck Patient reports neck redness/discharge throughout course of radiation tx although does report worsening of rash/discharge/pain over last several days. Given subjective fever/chills and decreased appetite, in addition to profound hypotension on presentation, cellulitis is most likely possibility. Patient did not appear septic (SIRS 1/4, qSOFA 1/3, lactate WNL), given that she is immunocompromised, more aggressive treatment is warranted. - blood cx taken AFTER Ancef negative - cont. maintenance IVF LR 80cc/hr - PRN Tylenol for fever - wound care following, cont. daily dressing changes - s/p Ancef 2g IV in ED, d/c'd dapto and zosyn on 10/07 with transition to Augmentin suspension 875mg bid - Continue Augmentin 875 mg BID (day 07/07) Acute chest pain -EKG- normal sinus rhythm without new ST-segment changes or T wave inversions, does not appear to suggest infarct per my interpretation -Troponin HS 17, will repeat this afternoon -Chest pain has resolved on further evaluation after initial episode -Do not suspect an acute coronary etiology of her chest pain given it is reproducible with palpation- more likely costochondritis/transient chest wall irritation from her acute illness -Continue to closely monitor for recurrence Hypokalemia -K 2.7 today despite K-rider repletion on day prior -not tolerating oral potassium due to oropharyngeal cancer and neck cellulitis -replenished with K-riders -Mg ordered for AM ALEJANDRO, resolved Cr 3.7, BUN:Cr ratio <10:1.. Given history of nausea/vomiting/decreased PO intake for several days, suspect ATN following initial pre-renal injury, which is likely an adverse outcome of last round of radiation tx. However underlying infection may also be playing a role (see below). Patient is not anuric/oliguric. - Cr 0.28, improved with hydration - LR 80cc/hr - US renal: R renal cyst otherwise normal - FeNa 1.4% - Urine sediment neg for granular casts - Nephrology consulted, signed off at this time - trend BMP in AM Watery diarrhea, resolved -contributing to fluid status and ALEJANDRO -c. diff gene position, tox neg; on contact precautions -GI PCR neg -Ova + parasite panel pending -nutrition consulted Hyponatremia, resolved Na 133 on 10/04, likely hypotonic hypovolemic hyponatremia in context of above. - Resolved to 138 with IVF CAD/HLD -continue home Aspirin, Atorvastatin HTN -Continue home Losartan and Metoprolol; initially held due to hypotension Depression -continue home Cymbalta and Levomilnacipran GERD -continue home Protonix COPD -continue home inhalers FEN/GI: full liquid diet; IVFs as stated above DVT Prophylaxis: Heparin SQ Code Status: full code Disposition: med surg (2) Cellulitis of neck: (3) Acute hypotension: (4) CAD (coronary artery disease): (5) Hypertension: (6) Dyslipidemia: (7) Depression: Admission and Anticipated Discharge Date Admission Date: October 05, 2021 Supervising Physician Co-Signing Physician Notes Attending attestation Pt seen and examined in concert with Dr. Webster. In agreement with the documented findings as noted in the resident documentation with any exceptions or additions as noted here. 56 year old female h/o oropharyngeal cancer (stage 3) undergoing radiation, NSTEMI, COPD, HTN, HLD w/ fever, chills, vomiting and loose stool, found to have ALEJANDRO. Ongoing improvement of neck pain and swelling. No change in stool. Episode of chest pain reported as noted with EKG reviewed without significant ST/Twave changes appreciated and troponins pending. On examination, S1/S2 nl RRR no MCG. CTAB. Abd NT/ND BS+ve. Improvement in erythema and TTP of the anterior neck. Cellulitis of the neck - wound care consult - continue augmentin Chest pain - evaluation as noted above and reassurance, symptoms resolved in late morning Hypokalemia - repletion today, check Mg and replete to stem decrease of K+ Else see resident documentation as noted. Subjective No acute events overnight. Reports her neck swelling has improved, denies fever/chills. Able to swallow full liquids better, speaking does not cause her as much difficulty. Left forearm swelling also improved and less bothersome. Denies other acute complaints. During afternoon rounds, pt noted chest pain- 8/10 severity right over sternum, crushing/sharp, radiating down R arm and constant. No associated dyspnea, diaphoresis, nausea/vomiting, neck pain. Pain reproducible with palpation. I evaluated patient about 1 hour afterwards and she states pain resolved. Review of Systems Review of Systems: All systems reviewed & are unremarkable except as noted in HPI & below Physical Exam Physical Exam: General: AOx3. NAD. Cooperative. Thin. HEENT: NCAT. Moist mucous membranes. Neck: neck cellulitis covered in dressing, edges that can be seen improved from previous Pulm: CTAB. no wheezes, rales, rhonchi. Symmetrical chest rise. No increase work of breathing. No respiratory distress. Cardiac: RRR, no murmurs. Abdominal: soft, nontender, nondistended, no rebound or guarding, +BS Skin: warm, dry; L forearm pulse present, reduced swelling from day prior per pt report, no pain with palpation over previous skin graft site, no excessive warmth/erythema, no pallor, not cool to touch MSK: reproducible chest pain with palpation of R sternum Results & Data Results & Data ([facility]) Vital Signs (Past 12 Hours) Vital Signs Temp Pulse Resp BP BP Pulse Ox O2 Del Method 10/08/21 07:48 36.7 C 94 H 18 130/85 95 Room Air 10/07/21 23:36 36.5 C 94 H 18 139/83 98 Room Air 10/07/21 23:06 Room Air Resident Activity Tracking Resident Involvement: Resident Care Provided Care Provided: Adult Hospital Medicine
--- NOTE | 2021-10-08 12:55 | Electrocardiogram Report ---
Test Reason : Blood Pressure : / mmHG Vent. Rate : 089 BPM Atrial Rate : 089 BPM P-R Int : 152 ms QRS Dur : 090 ms QT Int : 396 ms P-R-T Axes : 038 -04 033 degrees QTc Int : 481 ms Sinus rhythm with occasional Premature ventricular complexes Low voltage QRS Septal infarct , age undetermined Abnormal ECG When compared with ECG of 04-OCT-2021 21:27, Premature ventricular complexes are now Present Septal infarct is now Present Confirmed by Louie Murphy ([id number]) on 10/08/2021 12:55:33 PM Referred By: REFERRED SELF Confirmed By:Louie Murphy
[2021-10-08] MEDS: ATORVASTATIN 40 MG TAB PO SCH (20:42)
[2021-10-08] MEDS: NORTRIPTYLINE HCL 25 MG CAP PO SCH (20:42)
[2021-10-08] MEDS: MELATONIN 3 MG TAB PO PRN (22:33)
[2021-10-09] MEDS: FIRST - Mouthwash BLM 119 ML PO SCH ×6 (01:34→20:19)
[2021-10-09 06:58] LABS: Hematocrit (blood only) 31.9 % (34.1-44.9); Hemoglobin 10.9 g/dl (12.0-16.0); Mean Corpuscular Hemoglobin 29.6 pg (25.0-34.0); Mean Corpuscular Hgb Conc 34.2 g/dL (32.0-36.0); Mean Corpuscular Volume 86.7 fL (80.0-100.0); Mean Platelet Volume 10.2 fL (9.4-12.3); Platelet Count 167 K/uL (130-400); RDW Coefficient of Variation 12.9 % (11.5-14.5); RDW Standard Deviation 41.1 fL (36.4-46.3); Red Blood Count 3.68 M/uL (3.93-5.22); White Blood Count 4.24 K/ul (4.8-10.8)
[2021-10-09 07:30] LABS: Anion Gap 12 (3-11); Blood Urea Nitrogen < 2 mg/dl (6-23); Calcium 7.1 mg/dl (8.5-10.1); Carbon Dioxide 30 mmol/L (21-32); Chloride 96 mmol/L (98-107); Creatinine Clr Calc Pharmacy 147.9 ml/min; Est GFR (African American) 143.4 ml/min; Est GFR (Non-African American) 123.7 ml/min; Glucose 108 mg/dl (70-99(Fasting)); Magnesium 0.9 mg/dl (1.7-2.4); Potassium 2.8 mmol/L (3.5-5.1); Sodium 138 mmol/L (136-145)
[2021-10-09] MEDS: MAGNESIUM SULFATE / D5W 1 GM/100 ML BAG IV SCH ×6 (08:10→17:44)
[2021-10-09] MEDS: CLAVULANATE PO SCH ×2 (08:12→20:17)
[2021-10-09] MEDS: AMOXICILLIN PO SCH ×2 (08:12→20:17)
[2021-10-09] MEDS: UMECLIDINIUM BROMIDE 62.5MCG/BLISTER 7 PUFFS/INHALER INH SCH (08:12)
[2021-10-09] MEDS: ASPIRIN 81 MG ECTAB PO SCH (08:13)
[2021-10-09] MEDS: PANTOprazole 40 MG TAB PO SCH (08:13)
[2021-10-09] MEDS: METOPROLOL SUCC 50MG EXT REL TAB PO SCH (08:13)
[2021-10-09] MEDS: MAGNESIUM OXIDE 400 MG TAB PO SCH (08:13)
[2021-10-09] MEDS: LOSARTAN POTASSIUM 50 MG TAB PO SCH (09:52)
[2021-10-09] MEDS: LACTATED RINGER'S 1,000 ML IV SCH ×2 (09:52→20:17)
[2021-10-09] MEDS: HEPARIN SOD 5,000 UNIT/0.5 ML VIAL SQ SCH ×2 (09:53→20:18)
--- NOTE | 2021-10-09 11:16 | Hospitalist Progress Note ---
Date of Service October 09, 2021 Assessment & Plan (1) Acute kidney injury: Plan: Corin Peralta is a 56yo female with PMHx significant for stage 3 oropharyngeal carcinoma (just finished RTx), CAD (s/p NSTEMI, no stents), COPD (no home O2), HTN, dyslipidemia, and previous smoker (40 pack year history, quit several months ago) who presented to [facility] ED on 10/05 for subjective fever/chills, vomiting, decreased PO intake and worsening neck redness/pain for several days. Cellulitis of neck Patient reports neck redness/discharge throughout course of radiation tx although does report worsening of rash/discharge/pain over last several days. Given subjective fever/chills and decreased appetite, in addition to profound hypotension on presentation, cellulitis is most likely possibility. Patient did not appear septic (SIRS 1/4, qSOFA 1/3, lactate WNL), given that she is immunocompromised, more aggressive treatment is warranted. - blood cx taken AFTER Ancef negative - cont. maintenance IVF LR 80cc/hr - PRN Tylenol for fever - wound care following, cont. daily dressing changes - s/p Ancef 2g IV in ED, d/c'd dapto and zosyn on 10/07 with transition to Augmentin suspension 875mg bid - Continue Augmentin 875 mg BID (day 08/06) Hypokalemia -K 2.8 today despite K-rider repletion for past 2 days -not tolerating oral potassium due to oropharyngeal cancer and neck cellulitis -Suspect ineffectual repletion due to low Mg 0.9 -Continue simultaneous repletion of Mg and K -EKG wnl with slight QT prolongation to 494 -Trend BMP Hypomagnesemia -Mg 0.9 today -Currently repleting with IV Mg -EKG wnl with slight QT prolongation to 494 -Trend Mg Acute chest pain (10/08, resolved) -EKG- normal sinus rhythm without new ST-segment changes or T wave inversions, does not appear to suggest infarct per my interpretation -Troponin HS to 16 -Chest pain resolved after initial episode -Do not suspect an acute coronary etiology of her chest pain given it was reproducible with palpation- more likely costochondritis/transient chest wall irritation from her acute illness -Continue to closely monitor for recurrence ALEJANDRO, resolved Cr 3.7, BUN:Cr ratio <10:1.. Given history of nausea/vomiting/decreased PO intake for several days, suspect ATN following initial pre-renal injury, which is likely an adverse outcome of last round of radiation tx. However underlying infection may also be playing a role (see below). Patient is not anuric/oliguric. - Cr 0.28, improved with hydration - LR 80cc/hr - US renal: R renal cyst otherwise normal - FeNa 1.4% - Urine sediment neg for granular casts - Nephrology consulted, signed off at this time - trend BMP in AM Watery diarrhea, resolved -contributing to fluid status and ALEJANDRO -c. diff gene position, tox neg; on contact precautions -GI PCR neg -Ova + parasite panel pending -nutrition consulted Hyponatremia, resolved Na 133 on 10/04, likely hypotonic hypovolemic hyponatremia in context of above. - Resolved to 138 with IVF CAD/HLD -continue home Aspirin, Atorvastatin HTN -Continue home Losartan and Metoprolol; initially held due to hypotension Depression -continue home Cymbalta and Levomilnacipran GERD -continue home Protonix COPD -continue home inhalers FEN/GI: full liquid diet; IVFs as stated above DVT Prophylaxis: Heparin SQ Code Status: full code Disposition: med surg (2) Cellulitis of neck: (3) Acute hypotension: (4) CAD (coronary artery disease): (5) Hypertension: (6) Dyslipidemia: (7) Depression: Admission and Anticipated Discharge Date Admission Date: October 05, 2021 Supervising Physician Co-Signing Physician Notes Attending attestation Pt seen and examined in concert with Dr. Webster. In agreement with the documented findings as noted in the resident documentation with any exceptions or additions as noted here. 56 year old female h/o oropharyngeal cancer (stage 3) undergoing radiation, NSTEMI, COPD, HTN, HLD w/ fever, chills, vomiting and loose stool, found to have ALEJANDRO. Continued improvement of neck pain and swelling. No diarrhea reported. No further episode of chest pain reported. Pain/swelling of LUE improving] On examination, S1/S2 nl RRR no MCG. CTAB. Abd NT/ND BS+ve. Improvement in erythema and TTP of the anterior neck. Decreasing edema of the LUE Severe hypokalemia, hypomagnesemia - repletion today with repeat BMP in PM Cellulitis of the neck - wound care consult - continue augmentin Chest pain - resolved without recurrence LUE edema - resolving, likely infiltration from IV site Else see resident documentation as noted. Subjective No acute events overnight. Reports her neck swelling has further improved, denies fever/chills. Able to swallow full liquids better, speaking does not cause her as much difficulty as day prior. Left forearm swelling also continues to improve and less bothersome. Denies other acute complaints. Has not had any further chest pain since yesterday. Currently denying any lightheadedness, palpitations, dizziness, weakness, numbness. Review of Systems Review of Systems: Per Subjective Physical Exam Physical Exam: General: NAD. Cooperative. Thin. HEENT: NCAT. Moist mucous membranes. Neck: neck cellulitis covered in dressing, edges that can be seen stable from day prior, mild tenderness to palpation improved from day prior Pulm: CTAB. no wheezes, rales, rhonchi. Symmetrical chest rise. No increase work of breathing. No respiratory distress. Cardiac: RRR, no murmurs. Abdominal: soft, nontender, nondistended, no rebound or guarding, +BS Skin: warm, dry; L forearm radial pulse present, reduced swelling from day prior, no pain with palpation over previous skin graft site, no excessive warmth/erythema, no pallor, not cool to touch MSK: no reproducible chest pain with palpation of R sternum Results & Data Results & Data ([facility]) Vital Signs (Past 12 Hours) Vital Signs Temp Pulse Resp BP Pulse Ox O2 Del Method 10/09/21 07:24 36.5 C 106 H 16 113/81 97 Room Air
[2021-10-09] MEDS: POTASSIUM CHLORIDE / WTR 10 MEQ/100 ML PLCT IV SCH ×6 (12:35→17:44)
--- NOTE | 2021-10-09 12:57 | Electrocardiogram Report ---
Test Reason : Blood Pressure : / mmHG Vent. Rate : 093 BPM Atrial Rate : 093 BPM P-R Int : 144 ms QRS Dur : 100 ms QT Int : 398 ms P-R-T Axes : 067 004 054 degrees QTc Int : 494 ms Normal sinus rhythm Prolonged QT Abnormal ECG When compared with ECG of 08-OCT-2021 10:40, Premature ventricular complexes are no longer Present Confirmed by Louie Murphy ([id number]) on 10/09/2021 12:57:22 PM Referred By: REFERRED SELF Confirmed By:Louie Murphy
[2021-10-09] MEDS: NORTRIPTYLINE HCL 25 MG CAP PO SCH (20:18)
[2021-10-09] MEDS: ATORVASTATIN 40 MG TAB PO SCH (20:18)
[2021-10-09] MEDS: HYDROmorphone INJ 0.5 MG/0.5 ML SYR IV PRN (21:51)
[2021-10-10] MEDS: FIRST - Mouthwash BLM 119 ML PO SCH ×3 (02:04→10:49)
--- NOTE | 2021-10-10 07:33 | Hospitalist Progress Note ---
Date of Service October 10, 2021 Assessment & Plan (1) Acute kidney injury: Plan: Corin Peralta is a 56yo female with PMHx significant for stage 3 oropharyngeal carcinoma (just finished RTx), CAD (s/p NSTEMI, no stents), COPD (no home O2), HTN, dyslipidemia, and previous smoker (40 pack year history, quit several months ago) who presented to [facility] ED on 10/05 for subjective fever/chills, vomiting, decreased PO intake and worsening neck redness/pain for several days. Cellulitis of neck Patient reports neck redness/discharge throughout course of radiation tx although does report worsening of rash/discharge/pain over last several days. Given subjective fever/chills and decreased appetite, in addition to profound hypotension on presentation, cellulitis is most likely possibility. Patient did not appear septic (SIRS 1/4, qSOFA 1/3, lactate WNL), given that she is immunocompromised, more aggressive treatment is warranted. - blood cx taken AFTER Ancef negative - cont. maintenance IVF LR 80cc/hr - PRN Tylenol for fever - wound care following, cont. daily dressing changes - s/p Ancef 2g IV in ED, d/c'd dapto and zosyn on 10/07 with transition to Augmentin suspension 875mg bid - Continue Augmentin 875 mg BID (day 08/06) Hypokalemia -K 2.8 today despite K-rider repletion for past 2 days -not tolerating oral potassium due to oropharyngeal cancer and neck cellulitis -Suspect ineffectual repletion due to low Mg 0.9 -Continue simultaneous repletion of Mg and K -EKG wnl with slight QT prolongation to 494 -Trend BMP Hypomagnesemia -Mg 0.9 today -Currently repleting with IV Mg -EKG wnl with slight QT prolongation to 494 -Trend Mg Acute chest pain (10/08, resolved) -EKG- normal sinus rhythm without new ST-segment changes or T wave inversions, does not appear to suggest infarct per my interpretation -Troponin HS 17 to 16 -Chest pain resolved after initial episode -Do not suspect an acute coronary etiology of her chest pain given it was reproducible with palpation- more likely costochondritis/transient chest wall irritation from her acute illness -Continue to closely monitor for recurrence ALEJANDRO, resolved Cr 3.7, BUN:Cr ratio <10:1.. Given history of nausea/vomiting/decreased PO intake for several days, suspect ATN following initial pre-renal injury, which is likely an adverse outcome of last round of radiation tx. However underlying infection may also be playing a role (see below). Patient is not anuric/oliguric. - Cr 0.28, improved with hydration - LR 80cc/hr - US renal: R renal cyst otherwise normal - FeNa 1.4% - Urine sediment neg for granular casts - Nephrology consulted, signed off at this time - trend BMP in AM Watery diarrhea, resolved -contributing to fluid status and ALEJANDRO -c. diff gene position, tox neg; on contact precautions -GI PCR neg -Ova + parasite panel pending -nutrition consulted Hyponatremia, resolved Na 133 on 10/04, likely hypotonic hypovolemic hyponatremia in context of above. - Resolved to 138 with IVF CAD/HLD -continue home Aspirin, Atorvastatin HTN -Continue home Losartan and Metoprolol; initially held due to hypotension Depression -continue home Cymbalta and Levomilnacipran GERD -continue home Protonix COPD -continue home inhalers FEN/GI: full liquid diet; IVFs as stated above DVT Prophylaxis: Heparin SQ Code Status: full code Disposition: med surg (2) Cellulitis of neck: (3) Acute hypotension: (4) CAD (coronary artery disease): (5) Hypertension: (6) Dyslipidemia: (7) Depression: Admission and Anticipated Discharge Date Admission Date: October 05, 2021 Results & Data Results & Data ([facility]) Vital Signs (Past 12 Hours) Vital Signs Temp Pulse Pulse Resp BP Pulse Ox O2 Del Method 10/10/21 07:20 36.8 C 96 H 16 124/86 95 Room Air 10/09/21 22:50 36.9 C 106 H 18 125/85 98 Room Air
[2021-10-10 09:05] LABS: BUN Creatinine Ratio 5.3 (10-20); Calcium 7.2 mg/dl (8.5-10.1); Creatinine Clr Calc Pharmacy 132.3 ml/min; Est GFR (African American) 138.2 ml/min; Est GFR (Non-African American) 119.3 ml/min; Magnesium 1.9 mg/dl (1.7-2.4); Potassium 3.4 mmol/L (3.5-5.1)
[2021-10-10] MEDS: LACTATED RINGER'S 1,000 ML IV SCH (09:15)
[2021-10-10] MEDS: HYDROmorphone INJ 0.5 MG/0.5 ML SYR IV PRN (09:17)
[2021-10-10] MEDS: HEPARIN SOD 5,000 UNIT/0.5 ML VIAL SQ SCH (09:20)
[2021-10-10] MEDS: UMECLIDINIUM BROMIDE 62.5MCG/BLISTER 7 PUFFS/INHALER INH SCH (09:22)
[2021-10-10] MEDS: METOPROLOL SUCC 50MG EXT REL TAB PO SCH (09:22)
[2021-10-10] MEDS: LOSARTAN POTASSIUM 50 MG TAB PO SCH (09:23)
[2021-10-10] MEDS: PANTOprazole 40 MG TAB PO SCH (09:24)
[2021-10-10] MEDS: ASPIRIN 81 MG ECTAB PO SCH (09:24)
[2021-10-10] MEDS: MAGNESIUM OXIDE 400 MG TAB PO SCH (09:24)
[2021-10-10] MEDS: CLAVULANATE PO SCH (10:49)
[2021-10-10] MEDS: AMOXICILLIN PO SCH (10:49)
--- NOTE | 2021-10-10 12:01 | Discharge Summary ---
Date of Service October 10, 2021 Admission HPI Per Admitting Provider Corin Peralta is a 56yo female with PMHx significant for stage 3 oropharyngeal carcinoma (just finished RTx), CAD (s/p NSTEMI, no stents), COPD (no home O2), HTN, dyslipidemia, and previous smoker (40 pack year history, quit several months ago) who presented to [facility] ED on 10/05 for NB/NB vomiting, watery diarrhea, subjective fever/chills, generalized weakness, fatigue and decreased PO intake x3-4 days - symptoms began shortly after her last radiation treatment for oropharyngeal carcinoma. Patient also reports increased redness, pain, and purulent drainage from her neck since completion of last RTx. Patient denies h/o CKD. She has had difficulty eating solid foods since her cancer diagnosis but had managed to maintain fluid intake until several days ago - her appetite has been particularly poor over last several days. Patient has 40 pack year smoking history and quit several months ago, before she started radiation therapy. Has several drinks per week. Denies other drug use. Has been proficient with ADLs/iADLs overall and is fully ambulatory without assitance of cane/walker. In the ED the patient was profoundly hypotensive to 68/47 - improved to 101/57 after 3L NSS boluses. Afebrile and not tachycardic or hypoxic. Labs significant for BUN 34/Cr 3.70 (no previous), Na 133, Cl 96, AG 16. No leukocytosis and lactate was 0.5. CXR unremarkable. Patient was given 3L NSS boluses as stated above. Was also given Cefazolin 2g IV and blood cultures were drawn AFTER initiation of abx. Was also given Tylenol 1g PO and Zofran 4mg IV. Admission Exam Per Admitting Provider General: A&Ox3. NAD. Cooperative. Thin. HEENT: atraumatic, normocephalic. Neck: nearly circumferential erythematous rash on neck which extends down towards mid-chest, with overlying good film and visible purulent drainage. Surrounding skin is warm. Pulm: CTAB A&P. -wheezes, -rales, -rhonchi. Symmetrical chest rise. No increase work of breathing. No respiratory distress. Cardiac: RRR, -mrg. Radial pulses intact and symmetrical. Abdominal: soft, non-tender, non-distended, BS x 4 Back: no CVA tenderness Skin: warm, dry, no rash Principal Diagnosis Cellulitis Discharge Exam Constitutional WD/WN, vitals as above Eyes PERRL, conjunctivae normal, anicteric sclerae Neck trachea midline and + neck tender slight erythema scabbing and draining wound noted on neck Respiratory normal respiratory effort, lungs clear to auscultation Cardiovascular RRR, no murmur, no edema Chest (Breasts) Chest: normal inspection of chest Gastrointestinal (Abdomen) normal bowel sounds, soft, nontender, no hepatosplenomegaly Skin + wound, + crusts and + erythema noted on neck Discharge Data Allergies Allergy/AdvReac Type Severity Reaction Status Date / Time No Known Allergies Allergy Verified 10/05/21 00:07 Consultations 10/04/21 23:52 ED Decision to Admit Stat 10/05/21 02:01 Consult Nephrology Routine Ordered Studies 10/05/21 00:11 US renal/blad retro comp Urgent 10/07/21 10:44 US venous duplex arm [US venous doppler UE LT] Routine Hospital Course (1) Acute kidney injury: Corin Peralta is a 56yo female with PMHx significant for stage 3 oropharyngeal carcinoma (just finished RTx), CAD (s/p NSTEMI, no stents), COPD (no home O2), HTN, dyslipidemia, and previous smoker (40 pack year history, quit several months ago) who presented to [facility] ED on 10/05 for subjective fever/chills, vomiting, decreased PO intake and worsening neck redness/pain for several days. -Patient started on Augmentin suspension 875mg BID to continue for 8 days (14 days total) -Please recheck BMP in 1 week for potassium and Magnesium. Cellulitis of neck Patient reports neck redness/discharge throughout course of radiation tx although does report worsening of rash/discharge/pain over last several days. Given subjective fever/chills and decreased appetite, in addition to profound hypotension on presentation, cellulitis is most likely possibility. Patient did not appear septic (SIRS 1/4, qSOFA 1/3, lactate WNL), given that she is immunocompromised, more aggressive treatment is warranted. Blood cx taken AFTER Ancef negative. Started on IVF. Wound care following, cont. daily dressing changes. Recieved Ancef Dapto zosyn in ED, transitioned to Augmentin suspension will complete total 14 day abx, will continue at home for 8 days. Hypokalemia - repleted Hypomagnesemia - repleted Acute chest pain - resolved EKG- normal sinus rhythm without new ST-segment changes or T wave inversions. Troponin HS 17 to 16. Chest pain resolved after initial episode. Do not suspect an acute coronary etiology of her chest pain given it was reproducible with palpation- more likely costochondritis/transient chest wall irritation from her acute illness ALEJANDRO, resolved Cr 3.7, BUN:Cr ratio <10:1.. Given history of nausea/vomiting/decreased PO i ntake for several days, suspect ATN following initial pre-renal injury, which is likely an adverse outcome of last round of radiation tx. However underlying infection may also be playing a role (see below). Patient is not anuric/oliguric. Started on IVF. US renal: R renal cyst otherwise normal. FeNa 1.4%. Urine sediment neg for granular casts. Nephrology consulted, signed off at this time. Cr improved. Watery diarrhea, resolved Likely ontributing to fluid status and ALEJANDRO. C. diff gene position, tox neg; on contact precautions. GI PCR neg. Deputy County Clerk consulted. Hyponatremia, resolved Na 133 on 10/04, likely hypotonic hypovolemic hyponatremia in context of above. Repleted. CAD/HLD Continue home Aspirin, Atorvastatin HTN Continue home Losartan and Metoprolol; initially held due to hypotension Depression Continue home Cymbalta and Levomilnacipran GERD Continue home Protonix COPD Continue home inhalers (2) Cellulitis of neck: (3) Acute hypotension: (4) CAD (coronary artery disease): (5) Hypertension: (6) Dyslipidemia: (7) Depression: Total Time Total Time Spent Total Time Spent (In Minutes): see attending attestation Discharge Plan Discharge Items Patient Disposition: Home - Home Health Services Reason For Visit: ALEJANDRO Discharge Diagnosis: Cellulitits Activity: Resume your previous activity Non-emergency contact: Primary Care Provider Call non-emergency contact if: you have any medication questions, your symptoms worsen, your pain is unusual for you and you have a fever Follow-up/Referrals: Kvng Sandoval [Primary Care Provider] - Diet: Regular Addtl Attending Provider Instructions: You were admitted to the hospital for cellulitis of your neck. You were treated with antibiotics and wound care. Upon returning home, please continue to take Augmentin for twice a day for the next 8 days. We have arranged for home health services to come to your house and change the dressing on your neck. Please avoid soaking in hot tubs or pools while your neck is still healing. Please try to keep the dressing on your neck clean and dry. We noted that your magnesium and potassium were low in the hospital. You were given electrolyte supplements, and your magnesium and potassium levels have improved. Please have your labs rechecked with your PCP in 1 week. A discharge summary will be sent to your primary care physician to ensure continuity of care. Please bring this discharge summary with you to your next office appointment so that your provider can review it at that time. Follow-up appointments: Make a follow-up appointment with your PCP within the next week. It is very important that you follow up with them shortly after discharge from the [facility]. Keep all your follow-up appointments as already scheduled. If you cannot make an appointment, notify your provider. Medications: Your medication list has been reviewed and reconciled upon discharge to ensure accuracy and continuity of care. An updated list of all your medications is included with your hospital discharge paperwork. Please review this list closely, and make note of any changes. * We sent a new medication called Augmentin to your pharmacy. Take Augmentin 875mg 7ml twice a day for 8 days.. Take your medications as instructed; do not skip a dose of your medicines. Make sure all of your doctors know every medicine you are taking (including oqdp-wit-lwdibzl medicines, vitamins, and supplements). Call your primary care provider before taking any new medicines (including pcrx-aqi-blqphhe medicines, vitamins, and supplements), because some of these may interact with your current medications, or may make your symptoms worse. Tell your primary care provider if you cannot afford your medications. CONTACT YOUR PRIMARY CARE PROVIDER if you experience any of the following: Fever, chills, difficulty breathing Worsening pain/redness/swelling of your neck Difficulty following your treatment plan, or difficulty taking medications CALL 911 OR GO TO THE EMERGENCY DEPARTMENT if you experience any of the following: Sudden, severe abdominal pain or nausea/vomiting Severe chest pain, or chest pain that radiates (moves) to your jaw or arm Sudden, severe shortness of breath or difficulty breathing Thank you for allowing us to participate in your care. Pending Studies at Discharge: No Stand-Alone Forms: My [facility], Smoking Cessation Medications and DC Order Prescriptions: New amoxicillin-pot clavulanate 600-42.9 mg/5 mL Suspension For Reconstitution 875 mg PO BID 8 Days Qty: 125 0RF Continued atorvastatin 80 mg tablet 80 mg PO HS Qty: 90 3RF losartan 50 mg tablet 50 mg PO DAILY Qty: 90 3RF metoprolol succinate 50 mg tablet extended release 24 hr 50 mg PO DAILY Qty: 90 3RF nitroglycerin 0.4 mg tablet, sublingual 0.4 mg SL Q5M PRN (Reason: chest pain) Qty: 25 Fetzima 80 mg capsule,extended release 24 hr 80 mg PO DAILY hydroxyzine HCl 50 mg tablet 50 - 100 mg PO Q6H PRN (Reason: anxiety or sleep) pantoprazole 20 mg tablet,delayed release (DR/EC) 20 mg PO DAILY aspirin 81 mg Tablet,Delayed Release (Dr/Ec) 81 mg PO DAILY Spiriva Respimat 2.5 mcg/actuation mist 1 puff INHALATION BID zolpidem 10 mg tablet 10 mg PO HS nortriptyline 50 mg capsule 50 mg PO HS oxycodone 5 mg tablet 5 - 10 mg PO Q4 PRN (Reason: Pain) Discharge Orders: Discharge Order (Routine); Ordered 10/10/21 Ordered By: Crystal Wilks/Other Patient Handouts: Cellulitis Dc Admission Data Admit Date/Time: 10/05/21 00:28 Attending Provider: Catracho Hernandez Admit Provider: Abhijeet Tavarez Primary Care Provider: Kvng Sandoval Other Providers: Ramses Love ; Omar Mueller ; Rudy Rhoades Other Interventions: Discharge Summary Assessment (RN) Last Done: 10/10/21 14:24 Supervising Physician Co-Signing Physician Notes I personally examined the patient and verified all pierre points of history and exam, discussed case, and agree with decision making with Dr Hoyos Feeling better. Eating and drinking well. Very much wants to go home. No new complaints. Vitals noted, in general she is awake and alert pleasant no distress. HEENT normocephalic atraumatic mucous membranes moist. Breathing unlabored no accessory muscle use good effort. Neck is dressed, no tracking erythema outside of the dressing. Neuro without focal deficits. Severe hypokalemia, hypomagnesemia -due to poor p.o. intakenow improved enough to be safe for home. Outpatient follow-up. Cellulitis of the neck - wound care consult -finish course of augmentin Safe/stable for home, otherwise as above Resident Activity Tracking Resident Involvement: Resident Care Provided Care Provided: Adult [facility]
--- NOTE | 2021-10-10 17:32 | Billing Data ---
Date of Service October 10, 2021 Coding Level of Care Code D/C DAY MANAGEMENT <30 MINS
== END 2021-10-10 15:07 | disposition home health service (06) | DRG 603 ==
LOC: ED 21:17 → SUATTDRO 10-05 00:28 → 2S 10-05 00:28 → 3E 10-07 00:50

== ENCOUNTER 2024-06-20 13:21 | Inpatient (IN) ==
[2024-06-20] MEDS: SODIUM CHLORIDE 0.9% 1,000 ML IV ONE (14:07)
[2024-06-20] MEDS: ONDANSETRON INJ 2 MG/ML 2 ML VIAL IV STA (14:07)
[2024-06-20 14:16] LABS: Basophils # (auto) 0.03 K/uL (0.00-0.20); Basophils % (auto) 0.3 %; Eosinophils # (auto) 0.02 K/uL (0.00-0.50); Eosinophils % (auto) 0.2 %; Hematocrit (blood only) 44.4 % (37.0-47.0); Hemoglobin 14.9 g/dl (12.0-16.0); Immature Granulocytes # (auto) 0.05 K/uL (0.01-0.20); Immature Granulocytes % (auto) 0.4 %; Lymphocytes # (auto) 0.97 K/uL (1.20-3.40); Lymphocytes % (auto) 8.5 %; Mean Corpuscular Hemoglobin 31.1 pg (25.0-34.0); Mean Corpuscular Hgb Conc 33.6 g/dL (32.0-36.0); Mean Corpuscular Volume 92.7 fL (80.0-100.0); Mean Platelet Volume 9.8 fL (9.4-12.4); Monocytes % (auto) 4.4 %; Neutrophils % (auto) 86.2 %; Platelet Count 349 K/uL (130-400); RDW Coefficient of Variation 13.2 % (11.5-14.5); RDW Standard Deviation 45.1 fL (36.4-46.3); Red Blood Count 4.79 M/uL (4.20-5.40); White Blood Count 11.47 K/ul (4.8-10.8)
[2024-06-20] MEDS: MoRPHine SULFATE 2 MG/ML CARP IV STA (14:24)
[2024-06-20] MEDS: FAMOTIDINE 20MG IV PUSH 20 MG/5 ML SYR IV STA (14:24)
[2024-06-20] MEDS: ACETAMINOPHEN 1,000 MG/100 ML VIAL IV STA (14:26)
--- NOTE | 2024-06-20 14:29 | Emergency Department Note ---
Impression & Plan Hypotension, Hypothermia, Ischemia, bowel, Heme positive stool, Elevated lactic acid level, Acute dehydration, Acidosis ED Provider Note NAME: RUSS CARR AGE: 58 SEX: F : 1965 ARRIVES VIA: Ambulance INFORMANT: [Patient][nursing] ED PROVIDER(S): [Jose Francisco Parson MD] CHIEF COMPLAINT: Abdominal pain HISTORY OF PRESENT ILLNESS: The patient is a 58-year-old female who was recently diagnosed with a potential uterine mass. She has follow-up scheduled. Today, she developed crampy abdominal pain and diarrhea. She was made a priority as per our nursing staff as her blood pressure was low in the 80s to 90s systolic. The patient complains of persistent abdominal cramping and some diarrhea. She has had vomiting as well. No sick contacts. No cough or respiratory complaints. En route to the hospital, she was given oral Zofran. The patient does not take blood thinning agents. She has no history of previous GI bleeding. PMHx/PSHx/Social Hx: See Below PHYSICAL EXAM: GENERAL: Patient is in mild distress from pain. HEENT: No acute trauma, normocephalic atraumatic, mucous membranes dry, no nasal congestion. NECK: No stridor, no adenopathy, no meningismus, trachea is midline. LUNGS: Clear to auscultation bilaterally, no wheeze, no rhonchi, breath sounds equal. HEART: Without murmurs gallops or rubs, regular rate and rhythm. ABDOMEN: Soft, mildly diffusely tender, no significant distention. EXTREMITIES: No cyanosis, full range of motion of all the joints without pain or difficulty. NEUROLOGIC: Oriented x 3, no acute motor or sensory deficits, no focal weakness. SKIN: No jaundice, no diaphoresis. Pale. Rectal: Dark stool, heme positive. DIFFERENTIAL DIAGNOSIS: Upper or lower GI bleeding, C. difficile colitis, viral infection, bacterial intestinal infection, electrolyte imbalance, anemia, diverticulitis, among others. EMERGENCY DEPARTMENT PROCEDURES: MEDICAL DECISION MAKING: There is a mild leukocytosis, this certainly would be consistent with infection or even the stress of her presentation. There was a normal hemoglobin and platelet count. No worrisome coagulopathy. VBG does show acidosis with a pH of 7.12. No CO2 retention. Sodium was low at 127. CO2 is low consistent with acidosis. Lactic acid level was quite high at 3.9, on repeat lactate testing, after resuscitation, the value had improved to 2.5. There was no worrisome liver enzyme elevation. Procalcitonin level was elevated consistent with a potential bacterial source for her presentation. ECG showed a normal sinus rhythm, no ischemia. Cardiac enzyme testing x 1 was not consistent with acute cardiac injury. Urinalysis showed dehydration, no findings of infection. Stool bio fire was negative. Stool C. difficile testing was negative. Her stool was heme positive by my testing. Chest x-ray did not show pneumonia or free air. Abdominal and pelvis CT shows potential bowel ischemia with narrowing of the superior mesenteric artery. On exam, the patient was hypothermic and hypotensive complaining of abdominal pain. The patient was aggressively managed. She received 2 L of IV saline. This should suffice for 30 cc/kg of saline based on her ideal body weight as per sepsis protocol. She was given IV Zosyn as empiric antibiotic coverage. She was given IV Protonix for the presumed GI bleed. She was given IV Zofran, IV morphine. She received IV Pepcid and IV Tylenol. A Gela hugger was placed because of her hypothermia. With the above measures, the patient has markedly improved. Her blood pressure has improved, she feels markedly better. Her temperature has normalized. I did speak to multiple consultants here at [facility], eventually, transfer was recommended. I did speak then with [facility] in [place]. They reviewed all the patient's studies and felt the patient was and a good candidate for admission here at our hospital. As the patient's lactic acid level was improving and she was feeling improved, they did not feel a need for emergent transfer. They were willing to see the patient emergently at their facility if things were to escalate or worsen. At this point, the patient appears to have suffered a bout of bowel ischemia. This caused her pain and heme positive stool. She has been resuscitated and is feeling better. She is being hospitalized at our facility. I did speak with the ICU, the patient will likely be on their floor at least throughout this evening. I did speak with case management, the on-call hospitalist was consulted. The patient and family are aware of all the findings and the need for hospitalization. Prior/Outside records/notes reviewed: Today's EMS notes describing her presentation and transport to this hospital. ECG per my interpretation: Indication was hypotension. The ECG shows a normal sinus rhythm with a rate of 73. There is no ST elevation, no PVCs. The QTc is 484. Continuous Cardiac Monitoring per my interpretation: An order was placed for continuous cardiac monitoring. The monitor shows a rate of 69 with normal sinus rhythm. Imaging/x-ray results per my interpretation: Chest x-ray does not show pneumonia or free air. Chronic Medical/Social conditions affecting care: None Care/Management discussed with: General Surgery-Dr. Sanders, vascular surgery- Dr. Koch, on-call [facility]-Dr. Albarado. [facility] triage officer in [place]-Dr. Alvarez. Case management, the on-call hospitalist. On-call ICU staff-Dr. Navarro's service Level of care consideration(s): After review of the information above and other included data: --I believe the patient requires escalation of care to admission Critical Care Note: I have personally spent 56 minutes of critical care time in the direct management of this patient. This includes bedside care, interpretation of diagnostic studies, and testing, discussion with consultants, patient, and family members, and other required patient management activities. This 56 minutes is in excess of all separately billable procedures. DISPOSITION: Admission Past Med/Surg History Problem List (Updated 06/20/24 @ 20:13 by Jose Francisco Parson MD) Acidosis (Acute) Acute dehydration (Acute) Elevated lactic acid level (Acute) Heme positive stool (Acute) Ischemia, bowel (Acute) Hypothermia (Acute) Hypotension (Acute) Abdominal pain (Acute) Encounter for interrogation of cardiac recorder Syncope Open wound of neck (Acute) Cellulitis (Acute) Depression Cellulitis of neck (Acute) Palpitations Chest pain in adult PAD (peripheral artery disease) (Acute) Hypertension (Acute) Dyslipidemia (Acute) CAD (coronary artery disease) (Acute) D1 with high grade stenosis, medical management recommended Medical History Acute kidney injury Acute dehydration Acute hypotension Tobacco abuse Surgical History History of cardiac catheterization Social History Smoking Status: Current every day smoker Tobacco Type: E-cigarettes / Vaping Hx Alcohol Use: Yes Alcohol Intake Frequency: Monthly or Less Hx Substance Use: No Preferred Language: Icelandic Communication Ability: Effective Visual Impairment: Limited Hearing Ability: Normal Beliefs That Will Affect Care: None marital status: Current Living Situation: Family Current Living Situation Comment: Lives with her mother Feels Safe at Home: Yes Diet: regular caffeine: Yes Assistive Devices: None Allergies Allergies Allergy/AdvReac Type Severity Reaction Status Date / Time No Known Allergies Allergy Verified 12/26/23 12:56 Home Meds Home Medications Medication Instructions Recorded Confirmed hydroxyzine HCl 50 mg tablet 50 - 100 mg PO Q6H PRN anxiety or 11/03/19 06/20/24 sleep levomilnacipran 80 mg capsule,24 80 mg PO DAILY 11/03/19 06/20/24 hr,extended release (Fetzima) pantoprazole 20 mg tablet,delayed 20 mg PO DAILY 06/21/21 06/20/24 release nortriptyline 50 mg capsule 50 mg PO HS 10/05/21 06/20/24 tiotropium bromide 2.5 1 puff inhalation BID 10/05/21 06/20/24 mcg/actuation mist for inhalation (Spiriva Respimat) acetaminophen 500 mg tablet 500 mg PO DAILY PRN Pain 06/20/24 06/20/24 atorvastatin 80 mg tablet 80 mg PO DAILY 06/20/24 06/20/24 famotidine 20 mg tablet 20 mg PO BID 06/20/24 06/20/24 folic acid 1 mg tablet 1 mg PO DAILY 06/20/24 06/20/24 montelukast 10 mg tablet 10 mg PO DAILY 06/20/24 06/20/24 Previous Rx's Medication Instructions Recorded losartan 50 mg tablet 50 mg PO DAILY #90 tabs 12/27/23 metoprolol succinate 50 mg 50 mg PO DAILY #90 tabs 01/07/24 tablet,extended release 24 hr Results & Data (ED) Vital Signs Vital Signs - 24 hr 06/20/24 13:30 06/20/24 13:36 06/20/24 13:53 Temperature 34.8 C L Temperature Source Rectal Pulse Rate 82 Pulse Rate [Apical] Pulse Rate from SpO2 Sensor Respiratory Rate 15 Respiratory Effort / Characteristics Non-Labored Spontaneous Respiratory Depth Normal Respiratory Pattern Regular Blood Pressure 99/59 L 88/74 L Blood Pressure [Right Arm] Blood Pressure Mean 72 80 Blood Pressure Mean [Right Arm] Blood Pressure Position [Right Arm] Pulse Oximetry 93 Oxygen Delivery Method Room Air Sepsis Recent Fever Within 48 Hours No Sepsis New/Unexplained Change in Mental Status N/A Sepsis Action Taken by Nursing No Action Required 06/20/24 14:05 06/20/24 14:06 06/20/24 14:16 Temperature Temperature Source Pulse Rate 69 88 Pulse Rate [Apical] Pulse Rate from SpO2 Sensor 86 Respiratory Rate 16 Respiratory Effort / Characteristics Respiratory Depth Respiratory Pattern Blood Pressure 117/65 134/75 Blood Pressure [Right Arm] Blood Pressure Mean 82 87 Blood Pressure Mean [Right Arm] Blood Pressure Position [Right Arm] Pulse Oximetry 100 Oxygen Delivery Method Room Air Sepsis Recent Fever Within 48 Hours Sepsis New/Unexplained Change in Mental Status Sepsis Action Taken by Nursing 06/20/24 14:21 06/20/24 14:30 06/20/24 14:36 Temperature Temperature Source Pulse Rate 89 86 Pulse Rate [Apical] Pulse Rate from SpO2 Sensor 83 85 Respiratory Rate 17 17 Respiratory Effort / Characteristics Respiratory Depth Respiratory Pattern Blood Pressure 116/91 Blood Pressure [Right Arm] Blood Pressure Mean 96 Blood Pressure Mean [Right Arm] Blood Pressure Position [Right Arm] Pulse Oximetry 100 100 Oxygen Delivery Method Room Air Room Air Sepsis Recent Fever Within 48 Hours Sepsis New/Unexplained Change in Mental Status Sepsis Action Taken by Nursing 06/20/24 15:00 06/20/24 15:27 06/20/24 15:30 Temperature Temperature Source Pulse Rate 89 87 Pulse Rate [Apical] 87 Pulse Rate from SpO2 Sensor Respiratory Rate 15 22 22 Respiratory Effort / Characteristics Respiratory Depth Respiratory Pattern Blood Pressure 119/89 Blood Pressure [Right Arm] 123/79 Blood Pressure Mean 99 Blood Pressure Mean [Right Arm] 93 Blood Pressure Position [Right Arm] Pulse Oximetry 97 Oxygen Delivery Method Room Air Sepsis Recent Fever Within 48 Hours Sepsis New/Unexplained Change in Mental Status Sepsis Action Taken by Nursing 06/20/24 15:30 06/20/24 15:45 06/20/24 16:00 Temperature 34.6 C L 34.7 C L Temperature Source Pulse Rate 72 64 Pulse Rate [Apical] Pulse Rate from SpO2 Sensor 65 Respiratory Rate 22 18 Respiratory Effort / Characteristics Respiratory Depth Respiratory Pattern Blood Pressure 123/79 129/87 128/78 Blood Pressure [Right Arm] Blood Pressure Mean 98 100 94 Blood Pressure Mean [Right Arm] Blood Pressure Position [Right Arm] Pulse Oximetry 100 100 Oxygen Delivery Method Sepsis Recent Fever Within 48 Hours Sepsis New/Unexplained Change in Mental Status Sepsis Action Taken by Nursing 06/20/24 16:24 06/20/24 16:45 06/20/24 17:00 Temperature 35.2 C L 35.4 C L 35.5 C L Temperature Source Pulse Rate 72 105 H 93 H Pulse Rate [Apical] Pulse Rate from SpO2 Sensor 68 Respiratory Rate 20 23 30 H Respiratory Effort / Characteristics Respiratory Depth Respiratory Pattern Blood Pressure 148/91 H 134/74 Blood Pressure [Right Arm] Blood Pressure Mean 111 105 Blood Pressure Mean [Right Arm] Blood Pressure Position [Right Arm] Pulse Oximetry 99 100 100 Oxygen Delivery Method Sepsis Recent Fever Within 48 Hours Sepsis New/Unexplained Change in Mental Status Sepsis Action Taken by Nursing 06/20/24 17:03 06/20/24 17:15 06/20/24 17:30 Temperature 35.4 C L 35.4 C L 35.4 C L Temperature Source Pulse Rate 97 H 90 84 Pulse Rate [Apical] Pulse Rate from SpO2 Sensor 97 H Respiratory Rate 18 14 16 Respiratory Effort / Characteristics Respiratory Depth Respiratory Pattern Blood Pressure 134/74 150/88 H 148/95 H Blood Pressure [Right Arm] Blood Pressure Mean 94 112 122 Blood Pressure Mean [Right Arm] Blood Pressure Position [Right Arm] Pulse Oximetry 100 99 99 Oxygen Delivery Method Sepsis Recent Fever Within 48 Hours Sepsis New/Unexplained Change in Mental Status Sepsis Action Taken by Nursing 06/20/24 17:44 06/20/24 17:45 06/20/24 18:00 Temperature 35.6 C L 35.6 C L Temperature Source Pulse Rate 88 91 H 100 H Pulse Rate [Apical] Pulse Rate from SpO2 Sensor Respiratory Rate 18 17 Respiratory Effort / Characteristics Respiratory Depth Respiratory Pattern Blood Pressure 147/93 H 127/91 Blood Pressure [Right Arm] Blood Pressure Mean 118 93 Blood Pressure Mean [Right Arm] Blood Pressure Position [Right Arm] Pulse Oximetry 100 96 Oxygen Delivery Method Sepsis Recent Fever Within 48 Hours Sepsis New/Unexplained Change in Mental Status Sepsis Action Taken by Nursing 06/20/24 18:15 06/20/24 18:30 06/20/24 19:12 Temperature 35.7 C L 36 C L 36.1 C L Temperature Source Gutierrez Cath ( Temp Sensing) Pulse Rate 93 H 101 H Pulse Rate [Apical] 86 Pulse Rate from SpO2 Sensor 93 H 110 H Respiratory Rate 16 14 14 Respiratory Effort / Characteristics Non-Labored Spontaneous Respiratory Depth Normal Respiratory Pattern Regular Blood Pressure 146/99 H 144/101 H Blood Pressure [Right Arm] 114/96 Blood Pressure Mean 114 116 Blood Pressure Mean [Right Arm] 102 Blood Pressure Position [Right Arm] Semi-fowlers Pulse Oximetry 98 99 100 Oxygen Delivery Method Room Air Sepsis Recent Fever Within 48 Hours Sepsis New/Unexplained Change in Mental Status Sepsis Action Taken by Residential Medications Current Medication List: was personally reviewed by me Laboratory Data Attestation: I reviewed the patient's lab results. 06/20/24 13:55 06/20/24 13:55 Lab Results 06/20/24 06/20/24 06/20/24 Range/Units 13:55 14:00 15:32 WBC 11.47 H (4.8-10.8) K/ul RBC 4.79 (4.20-5.40) M/uL Hgb 14.9 (12.0-16.0) g/dl Hct 44.4 (37.0-47.0) % MCV 92.7 (80.0-100.0) fL MCH 31.1 (25.0-34.0) pg MCHC 33.6 (32.0-36.0) g/dL RDW Std Deviation 45.1 (36.4-46.3) fL RDW Coeff of Elyssa 13.2 (11.5-14.5) % Plt Count 349 (130-400) K/uL MPV 9.8 (9.4-12.4) fL Immature Gran % (Auto) 0.4 % Neut % (Auto) 86.2 % Lymph % (Auto) 8.5 % Wells % (Auto) 4.4 % Eos % (Auto) 0.2 % Baso % (Auto) 0.3 % Neut # (Auto) 9.90 H (1.40-6.50) K/uL Lymph # (Auto) 0.97 L (1.20-3.40) K/uL Wells # (Auto) 0.50 (0.11-0.59) K/uL Eos # (Auto) 0.02 (0.00-0.50) K/uL Baso # (Auto) 0.03 (0.00-0.20) K/uL Immature Gran # (Auto) 0.05 (0.01-0.20) K/uL PT 12.1 H (9.0-12.0) Seconds INR 1.1 (0.9-1.1) APTT 25 (21-31) Seconds PTT Ratio 0.9 VBG pH (7.36-7.41) VBG pCO2 (38-50) mmHg VBG pO2 mmHg VBG HCO3 mmol/L VBG O2 Saturation % VBG Base Excess mEq/L Sodium 127 L (136-145) mmol/L Potassium 3.9 (3.5-5.1) mmol/L Chloride 92 L (98-107) mmol/L Carbon Dioxide 14 L (21-32) mmol/L Anion Gap 21 H (3-11) BUN 6 (6-23) mg/dl Creatinine 0.77 (0.6-1.2) mg/dl Est Cr Clr Drug Dosing 49.5 ml/min eGFR 89.92 BUN/Creatinine Ratio 7.8 L (10-20) Glucose 105 H (70-99(Fasting)) mg/dl Lactate 3.9 H* (0.4-2.0) mmol/L Calcium 9.1 (8.6-10.3) mg/dl Magnesium 1.7 (1.7-2.4) mg/dl Total Bilirubin 0.5 (0.2-1.0) mg/dl Direct Bilirubin 0.1 (0-0.2) mg/dl AST 31 (13-39) U/L ALT 17 (7-52) U/L Alkaline Phosphatase 73 (34-104) U/L Troponin I High Sens 5.8 (0-14) pg/ml Total Protein 7.2 (6.0-8.3) gm/dl Albumin 4.0 (3.4-5.0) gm/dl Procalcitonin 8.31 H (0-0.5) ng/ml Random Cortisol > 60.00 mcg/dl Urine Color Urine Appearance (Clear) Urine pH (4.5-7.5) Ur Specific [place] (1.000-1.030) Urine Protein (Negative) Urine Glucose (UA) (Negative) Urine Ketones (Negative) Urine Blood (Negative) Urine Nitrite (Negative) Urine Bilirubin (Negative) Urine Urobilinogen (Negative) Ur Leukocyte Esterase (Negative) Urine WBC (Auto) (0-5) /hpf Urine RBC (Auto) (0-2) /hpf U Hyaline Cast (Auto) (0-2) /lpf U Epithel Cells (Auto) (0-2) /hpf Urine Bacteria (Auto) (None Seen) Stl C. cayetanensis PCR Not Detected (NotDetected) Stool Rotavirus A PCR Not Detected (NotDetected) Stl Adenov F 40/41 PCR Not Detected (NotDetected) Stool Astrovirus (PCR) Not Detected (NotDetected) Stool Campylobacter PCR Not Detected (NotDetected) Stl C. diff Tox B Gene Negative Cdiff Gene (Neg) Stool Cryptosporidium PCR Not Detected (NotDetected) Stl E.coli Shiga Tox PCR Not Detected (NotDetected) Stl Enterotoxigenic E PCR Not Detected (NotDetected) Stool EPEC (PCR) Not Detected (NotDetected) Stool EAEC (PCR) Not Detected (NotDetected) Stl E. histolytica PCR Not Detected (NotDetected) Stool Giardia Lamblia PCR Not Detected (NotDetected) Stool Salmonella PCR Not Detected (NotDetected) Stool Sapovirus (PCR) Not Detected (NotDetected) Stl P. shigelloides PCR Not Detected (NotDetected) Stl Shigella/EIEC PCR Not Detected (NotDetected) St Y.enterocolitica PCR Not Detected (NotDetected) Stool Vibrio (PCR) Not Detected (NotDetected) Stl Vibrio cholerae PCR Not Detected (NotDetected) Stl Norovirus GI/GII PCR Not Detected (NotDetected) Blood Type Antibody Screen 06/20/24 06/20/24 06/20/24 Range/Units 15:36 16:23 Unknown WBC (4.8-10.8) K/ul RBC (4.20-5.40) M/uL Hgb (12.0-16.0) g/dl Hct (37.0-47.0) % MCV (80.0-100.0) fL MCH (25.0-34.0) pg MCHC (32.0-36.0) g/dL RDW Std Deviation (36.4-46.3) fL RDW Coeff of Elyssa (11.5-14.5) % Plt Count (130-400) K/uL MPV (9.4-12.4) fL Immature Gran % (Auto) % Neut % (Auto) % Lymph % (Auto) % Wells % (Auto) % Eos % (Auto) % Baso % (Auto) % Neut # (Auto) (1.40-6.50) K/uL Lymph # (Auto) (1.20-3.40) K/uL Wells # (Auto) (0.11-0.59) K/uL Eos # (Auto) (0.00-0.50) K/uL Baso # (Auto) (0.00-0.20) K/uL Immature Gran # (Auto) (0.01-0.20) K/uL PT (9.0-12.0) Seconds INR (0.9-1.1) APTT (21-31) Seconds PTT Ratio VBG pH 7.12 L (7.36-7.41) VBG pCO2 33 L (38-50) mmHg VBG pO2 36 mmHg VBG HCO3 11 mmol/L VBG O2 Saturation < 60.0 % VBG Base Excess -17.6 mEq/L Sodium (136-145) mmol/L Potassium (3.5-5.1) mmol/L Chloride (98-107) mmol/L Carbon Dioxide (21-32) mmol/L Anion Gap (3-11) BUN (6-23) mg/dl Creatinine (0.6-1.2) mg/dl Est Cr Clr Drug Dosing ml/min eGFR BUN/Creatinine Ratio (10-20) Glucose (70-99(Fasting)) mg/dl Lactate 2.5 H* (0.4-2.0) mmol/L Calcium (8.6-10.3) mg/dl Magnesium (1.7-2.4) mg/dl Total Bilirubin (0.2-1.0) mg/dl Direct Bilirubin (0-0.2) mg/dl AST (13-39) U/L ALT (7-52) U/L Alkaline Phosphatase (34-104) U/L Troponin I High Sens (0-14) pg/ml Total Protein (6.0-8.3) gm/dl Albumin (3.4-5.0) gm/dl Procalcitonin (0-0.5) ng/ml Random Cortisol mcg/dl Urine Color Yellow Urine Appearance Clear (Clear) Urine pH 5.5 (4.5-7.5) Ur Specific [place] 1.009 (1.000-1.030) Urine Protein Negative (Negative) Urine Glucose (UA) Negative (Negative) Urine Ketones 3+ H (Negative) Urine Blood 1+ H (Negative) Urine Nitrite Negative (Negative) Urine Bilirubin Negative (Negative) Urine Urobilinogen Negative (Negative) Ur Leukocyte Esterase Negative (Negative) Urine WBC (Auto) 0-5 (0-5) /hpf Urine RBC (Auto) 3-5 H (0-2) /hpf U Hyaline Cast (Auto) 6-10 H (0-2) /lpf U Epithel Cells (Auto) 0-2 (0-2) /hpf Urine Bacteria (Auto) None Seen (None Seen) Stl C. cayetanensis PCR (NotDetected) Stool Rotavirus A PCR (NotDetected) Stl Adenov F 40/41 PCR (NotDetected) Stool Astrovirus (PCR) (NotDetected) Stool Campylobacter PCR (NotDetected) Stl C. diff Tox B Gene (Neg) Stool Cryptosporidium PCR (NotDetected) Stl E.coli Shiga Tox PCR (NotDetected) Stl Enterotoxigenic E PCR (NotDetected) Stool EPEC (PCR) (NotDetected) Stool EAEC (PCR) (NotDetected) Stl E. histolytica PCR (NotDetected) Stool Giardia Lamblia PCR (NotDetected) Stool Salmonella PCR (NotDetected) Stool Sapovirus (PCR) (NotDetected) Stl P. shigelloides PCR (NotDetected) Stl Shigella/EIEC PCR (NotDetected) St Y.enterocolitica PCR (NotDetected) Stool Vibrio (PCR) (NotDetected) Stl Vibrio cholerae PCR (NotDetected) Stl Norovirus GI/GII PCR (NotDetected) Blood Type B Positive Antibody Screen NEGATIVE Administered Medications Discontinued Medications Sodium Chloride (Nss) 1,000 mls @ 999 mls/hr IV .Q1H1M ONE Stop: 06/20/24 14:46 Last Infusion: 06/20/24 15:51 Dose: Infused Documented By: Admin: 06/20/24 14:07 Dose: 999 mls/hr Documented By: OLEG Pantoprazole Sodium 80 mg/ (Dextrose) 120 mls @ 400 mls/hr IV NOW ONE Stop: 06/20/24 14:34 Last Infusion: 06/20/24 15:51 Dose: Infused Documented By: Admin: 06/20/24 14:48 Dose: 400 mls/hr Documented By: OLEG Famotidine (Pepcid 20mg Iv Push) 20 mg in 5 mls @ 2.5 mls/min IV NOW STA Stop: 06/20/24 14:18 Last Admin: 06/20/24 14:24 Dose: 2.5 mls/min Documented By: MOHAN Acetaminophen (Ofirmev) 1,000 mg in 100 mls @ 400 mls/hr IV NOW STA Stop: 06/20/24 14:31 Last Infusion: 06/20/24 14:59 Dose: Infused Documented By: Admin: 06/20/24 14:26 Dose: 400 mls/hr Documented By: MOHAN Sodium Chloride (Nss) 500 mls @ 999 mls/hr IV .Q31M ONE Stop: 06/20/24 15:00 Last Infusion: 06/20/24 15:51 Dose: Infused Documented By: Admin: 06/20/24 14:49 Dose: 999 mls/hr Documented By: OLEG Piperacillin Sod/Tazobactam Sod (Zosyn) 4.5 gm in 100 mls @ 200 mls/hr IV NOW ONE Stop: 06/20/24 14:59 Last Infusion: 06/20/24 17:28 Dose: Infused Documented By: Admin: 06/20/24 16:49 Dose: 200 mls/hr Documented By: MOHAN Sodium Chloride (Nss) 500 mls @ 999 mls/hr IV .Q31M ONE Stop: 06/20/24 16:39 Last Infusion: 06/20/24 17:29 Dose: Infused Documented By: Admin: 06/20/24 16:49 Dose: 999 mls/hr Documented By: MOHAN Ioversol (Optiray 320 100ml) 90 ml IV ONCE ONE Stop: 06/20/24 16:34 Last Admin: 06/20/24 16:33 Dose: 90 ml Documented By: TREVOR Morphine Sulfate (Morphine Sulfate 2 Mg/Ml Carp) 2 mg IV NOW STA Stop: 06/20/24 14:18 Last Admin: 06/20/24 14:24 Dose: 2 mg Documented By: NRB Morphine Sulfate (Morphine Sulfate 4 Mg/Ml 1 Ml Carp\Vial) 4 mg IV NOW STA Stop: 06/20/24 15:31 Last Admin: 06/20/24 15:33 Dose: 4 mg Documented By: NRB Morphine Sulfate (Morphine Sulfate 4 Mg/Ml 1 Ml Carp\Vial) 4 mg IV NOW STA Stop: 06/20/24 19:26 Last Admin: 06/20/24 19:39 Dose: 4 mg Documented By: COBY Ondansetron HCl (Ondansetron Inj 2 Mg/Ml 2 Ml Vial) 4 mg IV NOW STA Stop: 06/20/24 13:47 Last Admin: 06/20/24 14:07 Dose: 4 mg Documented By: KMO Imaging Data Radiologist's Impression: Chest X-Ray 06/20/24 13:46 XR chest 1V portable CLINICAL HISTORY: Sepsis COMPARISON STUDY: 10/04/2021 FINDINGS: Cardiac loop recorder is present. Heart size and pulmonary vasculature are normal. No effusion, consolidation, or pneumothorax. IMPRESSION: No acute findings. ACT 112: Negative or not required by law. Electronically signed by: Suman Patino M.D. 06/20/2024 3:10 PM Abdomen/Pelvis CT 06/20/24 13:57 Clinical History: Abdominal pain Technique: Axial computed tomography images were obtained of the abdomen and pelvis after the administration of intravenous contrast. Comparison is made to the prior CT dated 06/16/2024. Findings: The liver is overall of normal size, attenuation, and contour with no sign of cirrhosis or significant fatty infiltration. No liver mass lesion is seen. The portal vein is patent. The gallbladder appears unremarkable. No bile duct dilatation is noted. The spleen is of normal size. No focal splenic lesion is evident. The pancreas appears normal with no sign of acute or chronic pancreatitis and no mass lesion noted. The pancreatic duct is of normal caliber. The adrenal glands appear unremarkable. No definite renal or proximal ureteral calculi are seen on this contrast-enhanced study. There is no hydronephrosis or perinephric stranding. No renal mass lesion is identified. There are small bilateral renal cysts, measuring up to 8 mm in size The aorta is of normal caliber. There is extensive atherosclerotic plaque. 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 There is suspected right renal artery stenosis. No abdominal adenopathy is seen. The stomach appears normal. There is no sign of small bowel obstruction. The colon appears unremarkable. The appendix appears normal also. No free intraperitoneal fluid or air is identified. No distal ureteral or bladder calculi are seen. The bladder is decompressed, containing a Gutierrez catheter. The iliac arteries are of normal caliber. There are severe stenoses of the common iliac arteries bilaterally. No pelvic adenopathy is noted. The lungs bases appear clear. There is slight grade 1 anterolisthesis at L5-S1 due to L5 pars defects. No fracture is identified. No focal osseous lesion is seen Impression: 1. Extensive atherosclerosis with suspected renal and mesenteric artery stenosis as well as severe stenoses of the common iliac arteries bilaterally 2. Small bilateral renal cysts ACT 112: Positive. There are findings on this exam that require communication between the performing entity and the patient following Patient Test Result Information Act ([place] ACT 112) guidelines. Electronically signed by Dominick Basilio 06-20-2024 5:03 PM Discharge Plan Visit Data Chief Complaint: Abdominal Pain ED Provider: Jose Francisco Parson Discharge Problem: Hypotension, Hypothermia, Ischemia, bowel, Heme positive stool, Elevated lactic acid level, Acute dehydration, Acidosis Patient Disposition: Admitted As Inpatient Condition: Serious Forms Stand Alone Forms: [facility] Prescriptions Prescriptions: No Action losartan 50 mg tablet 50 mg PO DAILY Qty: 90 3RF metoprolol succinate 50 mg tablet extended release 24 hr 50 mg PO DAILY Qty: 90 3RF Fetzima 80 mg capsule,extended release 24 hr 80 mg PO DAILY hydroxyzine HCl 50 mg tablet 50 - 100 mg PO Q6H PRN (Reason: anxiety or sleep) pantoprazole 20 mg tablet,delayed release (DR/EC) 20 mg PO DAILY Spiriva Respimat 2.5 mcg/actuation mist 1 puff INHALATION BID nortriptyline 50 mg capsule 50 mg PO HS acetaminophen 500 mg Tablet 500 mg PO DAILY PRN (Reason: Pain) famotidine 20 mg Tablet 20 mg PO BID folic acid 1 mg tablet 1 mg PO DAILY montelukast 10 mg Tablet 10 mg PO DAILY atorvastatin 80 mg tablet 80 mg PO DAILY Referrals Referrals: Kvng Sandoval [Primary Care Provider] - Discharge Problem: Hypotension Qualifiers: Hypotension type: unspecified hypotension type Qualified Code(s): I95.9 - Hypotension, unspecified Hypothermia Qualifiers: Encounter type: initial encounter Qualified Code(s): T68.XXXA - Hypothermia, initial encounter
[2024-06-20 14:38] LABS: BUN Creatinine Ratio 7.8 (10-20); Bilirubin Direct 0.1 mg/dl (0-0.2); Calcium 9.1 mg/dl (8.6-10.3); Creatinine Clr Calc Pharmacy 49.5 ml/min; Potassium 3.9 mmol/L (3.5-5.1)
[2024-06-20 14:42] LABS: Troponin I High Sensitivity 5.8 pg/ml (0-14)
[2024-06-20] MEDS: PANTOprazole 80 MG in DEXTROSE 5% 100 ML IV ONE (14:48)
[2024-06-20 14:49] LABS: INR 1.1 (0.9-1.1); Partial Thromboplastin Ratio 0.9; Partial Thromboplastin Time 25 Seconds (21-31); Prothrombin Time 12.1 Seconds (9.0-12.0)
[2024-06-20] MEDS: SODIUM CHLORIDE 0.9% 500 ML IV ONE ×2 (14:49→16:49)
[2024-06-20 14:56] LABS: Bilirubin,Total 0.5 mg/dl (0.2-1.0); Magnesium 1.7 mg/dl (1.7-2.4)
[2024-06-20 15:01] LABS: Total Protein 7.2 gm/dl (6.0-8.3)
--- NOTE | 2024-06-20 15:11 | XRay Report ---
XR chest 1V portable CLINICAL HISTORY: Sepsis COMPARISON STUDY: 10/04/2021 FINDINGS: Cardiac loop recorder is present. Heart size and pulmonary vasculature are normal. No effus ion, consolidation, or pneumothorax. IMPRESSION: No acute findings. ACT 112: Negative or not required by law. Electronically signed by: Suman Patino M.D. 06/20/2024 3:10 PM
[2024-06-20] MEDS: MoRPHine SULFATE 4 MG/ML 1 ML CARP\\VIAL IV STA ×2 (15:33→19:39)
[2024-06-20 15:46] LABS: Base Excess VBG -17.6 mEq/L; HCO3 VBG 11 mmol/L; Oxygen Saturation VBG < 60.0 %; PCO2 VBG 33 mmHg (38-50); PO2 VBG 36 mmHg; pH VBG 7.12 (7.36-7.41)
[2024-06-20 16:06] LABS: Adenovirus F 40/41 PCR Not Detected (NotDetected); Astrovirus PCR Not Detected (NotDetected); Campylobacter PCR Not Detected (NotDetected); Cryptosporidium PCR Not Detected (NotDetected); Cyclospora cayetanensis PCR Not Detected (NotDetected); Entamoeba histolytica PCR Not Detected (NotDetected); Enteroaggregative E.coli(EAEC) Not Detected (NotDetected); Enteropathogenic E.coli (EPEC) Not Detected (NotDetected); Enterotoxigenic E.coli (ETEC) Not Detected (NotDetected); Giardia lamblia PCR Not Detected (NotDetected); Norovirus GI/GII PCR Not Detected (NotDetected); Plesiomonas shigelloides PCR Not Detected (NotDetected); Rotavirus A PCR Not Detected (NotDetected); Salmonella PCR Not Detected (NotDetected); Sapovirus PCR Not Detected (NotDetected); Shiga-like Toxin E.coli (STEC) Not Detected (NotDetected); Shigella/Enteroinvasive E.coli Not Detected (NotDetected); Vibrio cholerae PCR Not Detected (NotDetected); Vibrio species PCR Not Detected (NotDetected); Yersinia enterocolitica PCR Not Detected (NotDetected)
[2024-06-20 16:14] LABS: Appearance Urine Clear (Clear); Bacteria Urine Automated None Seen (None Seen); Bilirubin Urine Negative (Negative); Blood Urine 1+ (Negative); Color Urine Yellow; Epithelial Cell Urine Auto 0-2 /hpf (0-2); Glucose Urine UA Negative (Negative); Ketones Urine 3+ (Negative); Leukocyte Esterase Urine Negative (Negative); Nitrite Urine Negative (Negative); Protein Urine Negative (Negative); Specific Gravity Urine 1.009 (1.000-1.030); Urobilinogen Urine Negative (Negative); WBC Urine Automated 0-5 /hpf (0-5); pH Urine 5.5 (4.5-7.5)
[2024-06-20] MEDS: OPTIRAY 320 100ml IV ONE (16:33)
[2024-06-20] MEDS: PIPERACILLIN/TAZOBACTAM 4.5 GM/100 ML BAG IV ONE (16:49)
--- NOTE | 2024-06-20 17:04 | CT Scan Report ---
Clinical History: Abdominal pain Technique: Axial computed tomography images were obtained of the abdomen and pelvis after the administration of intravenous contrast. Comparison is made to the prior CT dated 06/16/2024. Findings: The liver is overall of normal size, attenuation, and contour with no sign of cirrhosis or significant fatty infiltration. No liver mass lesion is seen. The portal vein is patent. The gallbladder appears unremarkable. No bile duct dilatation is noted. The spleen is of normal size. No focal splenic lesion is evident. The pancreas appears normal with no sign of acute or chronic pancreatitis and no mass lesion noted. The pancreatic duct is of normal caliber. The adrenal glands appear unremarkable. No definite renal or proximal ureteral calculi are seen on this contrast-enhanced study. There is no hydronephrosis or perinephric stranding. No renal mass lesion is identified. There are small bilateral renal cysts, measuring up to 8 mm in size The aorta is of normal caliber. There is extensive atherosclerotic plaque. 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 There is suspected right renal artery stenosis. No abdominal adenopathy is seen. The stomach appears normal. There is no sign of small bowel obstruction. The colon appears unremarkable. The appendix appears normal also. No free intraperitoneal fluid or air is identified. No distal ureteral or bladder calculi are seen. The bladder is decompressed, containing a Gutierrez catheter. The iliac arteries are of normal caliber. There are severe stenoses of the common iliac arteries bilaterally. No pelvic adenopathy is noted. The lungs bases appear clear. There is slight grade 1 anterolisthesis at L5-S1 due to L5 pars defects. No fracture is identified. No focal osseous lesion is seen Impression: 1. Extensive atherosclerosis with suspected renal and mesenteric artery stenosis as well as severe stenoses of the common iliac arteries bilaterally 2. Small bilateral renal cysts ACT 112: Positive. There are findings on this exam that require communication between the performing entity and the patient following Patient Test Result Information Act ([place] ACT 112) guidelines. Electronically signed by Dominick Basilio 06-20-2024 5:03 PM
[2024-06-20] MEDS: LACTATED RINGER'S 1,000 ML IV SCH (20:53)
[2024-06-20] MEDS ORDERED: ICU Protocol for HYPERglycemia SCH (21:00)
[2024-06-20 21:01] LABS: HCO3 VBG 15 mmol/L; Oxygen Saturation VBG < 60.0 %; PCO2 VBG 38 mmHg (38-50); PO2 VBG 24 mmHg; pH VBG 7.19 (7.36-7.41)
--- NOTE | 2024-06-20 21:08 | Critical Care Consultation ---
Date of Consultation June 20, 2024 Assessment & Plan (1) Acute dehydration: (2) Elevated lactic acid level: (3) Heme positive stool: (4) Ischemia, bowel: (5) Hypotension: (6) Abdominal pain: (7) Starvation ketoacidosis: (8) Malnutrition: (9) Dysphagia: Plan Reason Critically Ill: 1. Acute on chronic ischemia of bowel 2/2 malperfusion from hypovolemia and hypotension 2. HAGMA 2/2 lactic acidosis and ketosis, improving with hydration 3. Severe protein calorie malnutrition complicated by tongue resection and difficulty eating 4. Financial insecurity 5. Sepsis 2/2 bacterial translocation 6. Possible LGIB 2/2 #1 Neuro - RASS GOAL 0 Multimodal pain management Scheduled APAP, IV Dilaudid PRN Hydroxyzine PRN Cardiac - No acute concerns MAP goal > 65mmHg, avoid hypotension with significant PAD IV hydration as below Admit EKG WNL without ischemic changes Hold home antihypertensives, encouraged patient to check BP at home before taking Rx Continue statin Check lipid panel Respiratory - No acute concerns SpO2 goal > 92% CXR without acute cardiopulmonary disease IS/Flutter HOB 30 with aspiration precautions pending Speech evaluation Encouraged cessation of tobacco products GI - General Surgery aware of patient's case, will reconsult if needed. Wound benefit from OP Vascular follow up Diet: Advance diet as tolerated after nursing dysphagia screen, start with liquids Nutrition consult, appreciate recommendations SUP: Home H2B Bowel regimen: Held Heme + stool likely from intestinal sloughing in the setting of relative ischemia. Can consider GI consultation if melena or hematochezia RENAL/LYTES - Mild ALEJANDRO Replete electrolytes as indicated LR at 75cc/hr Trend lactate to clearance Gutierrez for accurate I/Os, can remove per nursing protocol ENDO - Concern for starvation ketosis, no BHB available in our lab but urine ketones 3+ without history of ETOH or DM Encourage PO intake, consider adding dextrose to mIVF Cortisol > 60 BG 140-180 per SCCM guidelines ISS if needed while inpatient HEME/ONC/OTHER - CA in remission > 2 years per patient Case Management consult for disposition and financial assistance with food, appreciate consultation Could benefit from Palliative involvement if nutritional status does not improve, QOL is poor ID - Continue Zosyn De-escalation based on culture data BC x2 pending, MRSA pending, procalcitonin elevated, UA negative LINES/TUBES/DRAINS - PIV x2 Gutierrez (Day #1) - remove in AM DVT PROPHYLAXIS - Held overnight, consider Enoxaparin in AM if no bleeding I have personally spent 34 minutes of critical care time in the direct management of this patient. This is a life/limb threatening event. This includes time spent evaluating patient, direct bedside care, chart review, placing orders, interpretation of diagnostic studies, discussion with consultants, patient, and family members, as well as other required patient management activities. This time is exclusive of all separately billable procedures, and teaching time and separate from and in addition to any other critical care service time. Thank you for allowing us to participate in the care of this patient. Please refer to my attending physician's documentation for any further recommendations. History of Present Illness Reason for Consultation: Hypotension with ischemia of bowel Requesting Physician: Kate Attending Physician: Kate History of Present Illness Ms. Corin Peralta is a pleasant 58YOF with a history of oral cancer s/p resection and RTx (2021), dysphagia, malnutrition, HTN/HLD, PAD, CAD, tobacco use disorder (current vaping), COPD not on O2 who presented to [facility] ED on 2024 with complaints of abdominal pain with diarrhea x1 day. She was found to be hypotensive on arrival. Received 3L NSS with improvement. Initial work-up was notable for lactic acid of 3.9, leukocytosis with neutrophil predominance, elevated procalcitonin, and relative ALEJANDRO given her baseline Cr < 0.6. 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 Stool heme +. UA negative but did show 3+ ketones consistent with starvation ketosis. pH 7.1 with HCO3 of 11. LA improved with hydration. Zosyn given for empiric coverage. Case was discussed with General Surgery, Vascular Surgery, and consultants at [facility] with consensus that given her clinical improvement she can be managed at [facility] at this juncture without need for emergent surgical intervention. ICU was consulted for admission. Patient seen in ED C04. She is AAOx3. Family at bedside. Patient is in no acute distress. Endorses 5/10 LUQ and LLQ abdominal pain which is improved from prior with morphine administration. UOP brisk with > 1200cc thus far from dileep per RN. She is normotensive and non-tachycardic. Admits to minimal PO intake in recent months, no real solid foods. She has trouble affording protein supplementation so she has really only been drinking fluids for a significant amount of time. Weight loss is evident and family agree she has lost significant weight in the past 2 years since CA Dx. 10-point ROS was reviewed and positive for abdmoinal pain (dull and sharp intermittently), 1 day of diarrhea dark in nature, limited PO intake. Remainder negative. Allergies Allergy/AdvReac Type Severity Reaction Status Date / Time No Known Allergies Allergy Verified 12/26/23 12:56 Home Medications Medication Instructions Recorded Confirmed Type hydroxyzine HCl 50 mg tablet 50 - 100 mg PO Q6H PRN anxiety or 11/03/19 06/20/24 History sleep levomilnacipran 80 mg capsule,24 80 mg PO DAILY 11/03/19 06/20/24 History hr,extended release (Fetzima) pantoprazole 20 mg tablet,delayed 20 mg PO DAILY 06/21/21 06/20/24 History release nortriptyline 50 mg capsule 50 mg PO HS 10/05/21 06/20/24 History tiotropium bromide 2.5 1 puff inhalation BID 10/05/21 06/20/24 History mcg/actuation mist for inhalation (Spiriva Respimat) losartan 50 mg tablet 50 mg PO DAILY #90 tabs 12/27/23 06/20/24 Rx metoprolol succinate 50 mg 50 mg PO DAILY #90 tabs 01/07/24 06/20/24 Rx tablet,extended release 24 hr acetaminophen 500 mg tablet 500 mg PO DAILY PRN Pain 06/20/24 06/20/24 History atorvastatin 80 mg tablet 80 mg PO DAILY 06/20/24 06/20/24 History famotidine 20 mg tablet 20 mg PO BID 06/20/24 06/20/24 History folic acid 1 mg tablet 1 mg PO DAILY 06/20/24 06/20/24 History montelukast 10 mg tablet 10 mg PO DAILY 06/20/24 06/20/24 History Patient History Medical History Acute kidney injury Acute dehydration Acute hypotension Tobacco abuse Surgical History History of cardiac catheterization Social History Smoking Status: Current some day smoker Tobacco Type: E-cigarettes / Vaping Second Hand Exposure: No; Do You Dip or Chew Tobacco: No; Tobacco Cessation Education Requested by Patient: No Hx Alcohol Use: Yes Alcohol type: beer Alcohol Intake Frequency: Monthly or Less Hx Substance Use: No Preferred Language: Macedonian Communication Ability: Effective Visual Impairment: Limited Hearing Ability: Normal Recapper Required: No Beliefs That Will Affect Care: None marital status: Current Living Situation: Family Current Living Situation Comment: Lives with her mother Other Information That Helps Us Care for You: No Feels Safe at Home: Yes Safety Concerns: Feels Safe At This Time Diet: regular caffeine: Yes Assistive Devices: None Review of Systems Review of Systems: All systems reviewed & are unremarkable except as noted in Subjective Physical Exam Constitutional: + thin, + cachectic, + frail appearing, cooperative, comfortable, + lethargic and + malnourished; no acute distress and no altered mental status Eyes: PERRL, conjunctivae normal, anicteric sclerae sunken ENMT: Nose: no external nose abnormality Mouth: + tongue abnormality, + dry oral mucous membranes and + edentulous R tongue resection without signs of infection. Dry MM Neck: Scarring R neck appears well-healed Respiratory: normal respiratory effort, lungs clear to auscultation Cardiovascular: Rate/Rhythm: regular rate and regular rhythm Heart Sounds: no murmur Vessels: + carotid bruit; no JVD Extremities: normal capillary refill; no edema Gastrointestinal (Abdomen): Inspection/Auscultation: abdomen normal to inspection and + high-pitched sounds; abdomen not distended Percussion/Palpation: + abdomen tender, + guarding and abdomen soft TTP LUQ and bilateral lower quadrants Musculoskeletal: Head/Neck/Chest: normocephalic and head atraumatic muscle wasting throughout Skin: + turgor decreased and + hair thinning; no rashes, no lesions and no ulcers Neurologic: PERRL, EOMI, accommodation nl, no face palsy, no dysarthria Genitourinary: Gutierrez in place draining light yellow urine Results & Data Results & Data Vital Signs (Past 12 Hours) Vital Signs Temp Pulse Pulse Resp BP BP Pulse Ox 06/20/24 19:12 36.1 C L 86 14 114/96 100 06/20/24 18:30 36 C L 101 H 14 144/101 H 99 06/20/24 18:15 35.7 C L 93 H 16 146/99 H 98 06/20/24 18:00 35.6 C L 100 H 17 127/91 96 06/20/24 17:45 35.6 C L 91 H 18 147/93 H 100 06/20/24 17:44 88 06/20/24 17:30 35.4 C L 84 16 148/95 H 99 06/20/24 17:15 35.4 C L 90 14 150/88 H 99 06/20/24 17:03 35.4 C L 97 H 18 134/74 100 06/20/24 17:00 35.5 C L 93 H 30 H 134/74 100 06/20/24 16:45 35.4 C L 105 H 23 148/91 H 100 06/20/24 16:24 35.2 C L 72 20 99 06/20/24 16:00 34.7 C L 64 18 128/78 100 06/20/24 15:45 34.6 C L 72 22 129/87 100 06/20/24 15:30 123/79 06/20/24 15:30 87 22 123/79 97 06/20/24 15:27 87 22 119/89 06/20/24 15:00 89 15 06/20/24 14:36 86 17 100 06/20/24 14:30 116/91 06/20/24 14:21 89 17 100 06/20/24 14:16 134/75 06/20/24 14:06 88 16 117/65 100 06/20/24 14:05 69 06/20/24 13:53 88/74 L 06/20/24 13:36 82 15 99/59 L 93 06/20/24 13:30 34.8 C L O2 Del Method 06/20/24 19:12 Room Air 06/20/24 18:30 06/20/24 18:15 06/20/24 18:00 06/20/24 17:45 06/20/24 17:44 06/20/24 17:30 06/20/24 17:15 06/20/24 17:03 06/20/24 17:00 06/20/24 16:45 06/20/24 16:24 06/20/24 16:00 06/20/24 15:45 06/20/24 15:30 06/20/24 15:30 Room Air 06/20/24 15:27 06/20/24 15:00 06/20/24 14:36 Room Air 06/20/24 14:30 06/20/24 14:21 Room Air 06/20/24 14:16 06/20/24 14:06 Room Air 06/20/24 14:05 06/20/24 13:53 06/20/24 13:36 Room Air 06/20/24 13:30 Laboratory Results Reviewed Diagnostic Findings Reviewed Medications Administered See MAR Coding Level of Care Code 83860 CRITICAL CARE 1ST 30-74M Diagnoses Acute dehydration E86.0 Elevated lactic acid level R79.89 Heme positive stool R19.5 Ischemia, bowel K55.9 Hypotension I95.9 Hypotension type: unspecified hypotension type Abdominal pain R10.9 Starvation ketoacidosis T73.0XXA; E87.29 Malnutrition E46 Dysphagia R13.10 Time Spent (min) 34 (5) Hypotension Hypotension type: unspecified hypotension type Qualified Code(s): I95.9 - Hypotension, unspecified
--- NOTE | 2024-06-20 21:23 | History & Physical Report ---
Date of Service June 20, 2024 Assessment & Plan (1) Ischemia, bowel: (2) Hypotension: (3) Malnutrition: (4) Acute dehydration: Plan The patient is a 58-year-old female with a past medical history including peripheral arterial disease, hypertension, dyslipidemia, coronary disease, GERD, hyperlipidemia, peripheral neuropathy, and COPD. The patient presents to the emergency department with concerns regarding a recently diagnosed potential uterine mass. She reports having at least 1 month of issues with crampy abdominal pain and diarrhea. Upon initial presentation to the emergency department, her systolic blood pressures in the 80s to 90s. Her HPI and review of systems are very limited, in part associated with patient's intellectual capacity. She has had decreased oral intake as noted for the past several months, and has continued to lose significant amounts of weight, showing issues with protein calorie malnutrition. Workup in the emergency department included CT scan of abdomen pelvis which shows extensive atherosclerosis with suspected renal and mesenteric artery stenoses as well as severe stenosis of common iliac arteries bilaterally. #Ischemic bowel/hypotension- CT scan of abdomen pelvis shows extensive atherosclerosis with suspected renal and mesenteric artery stenosis as well as severe stenoses of the common iliac arteries bilaterally. Patient has had significantly decreased oral intake, and weight loss due to pain associated with attempted oral intake Patient admitted to the intensive care unit, due to severe metabolic acidosis, anion gap of 21, and severe dehydration. From the ED the patient received the following: Acetaminophen 1 g IV, morphine sulfate 2 mg IV, normal saline 500 mL boluses x 2, and Zosyn 4.5 g IV every 8 hours Admit on Zosyn 4.5 g IV every 8 hours Pantoprazole 40 mg IV daily Tylenol 1 g IV every 8 hours as needed for mild pain or fever Zofran 4 mg IV every 6 hours as needed Consult gastroenterology and general surgery depending on patient's response to fluids and antibiotics Follow serial CBC with differential, chemistry profile, magnesium levels Further management per ICU Patient will primarily be n.p.o. at this point, and will hold most oral medications, including antihypertensives Overall poor prognosis CAD/hypertension/history of STEMI- Follows with cardiology You have an outpatient setting Has had loop recorder in the past to assess for multiple syncopal episodes Carotid stenosis- Carotid duplex 12/15/2019 anterograde flow in right vertebral artery, and left vertebral artery is occluded History of Present Illness Chief Complaint: The patient presents to the emergency department with concerns regarding a recently diagnosed potential uterine mass. She reports having at least 1 month of issues with crampy abdominal pain and diarrhea. Upon initial presentation to the emergency department, her systolic blood pressures in the 80s to 90s. Her HPI and review of systems are very limited, in part associated with patient's intellectual capacity. She has had decreased oral intake as noted for the past several months, and has continued to lose significant amounts of weight, showing issues with protein calorie malnutrition. Primary Care Provider: Kvng Sandoval The patient is a 58-year-old female with a past medical history including pe ripheral arterial disease, hypertension, dyslipidemia, coronary disease, GERD, hyperlipidemia, peripheral neuropathy, and COPD. The patient presents to the emergency department with concerns regarding a recently diagnosed potential uterine mass. She reports having at least 1 month of issues with crampy abdominal pain and diarrhea. Upon initial presentation to the emergency department, her systolic blood pressures in the 80s to 90s. Her HPI and review of systems are very limited, in part associated with patient's intellectual capacity. She has had decreased oral intake as noted for the past several months, and has continued to lose significant amounts of weight, showing issues with protein calorie malnutrition. Workup in the emergency department included CT scan of abdomen pelvis which shows extensive atherosclerosis with suspected renal and mesenteric artery stenoses as well as severe stenosis of common iliac arteries bilaterally. Allergies Allergy/AdvReac Type Severity Reaction Status Date / Time No Known Allergies Allergy Verified 12/26/23 12:56 Home Medications Medication Instructions Recorded Confirmed Type hydroxyzine HCl 50 mg tablet 50 - 100 mg PO Q6H PRN anxiety or 11/03/19 06/20/24 History sleep levomilnacipran 80 mg capsule,24 80 mg PO DAILY 11/03/19 06/20/24 History hr,extended release (Fetzima) pantoprazole 20 mg tablet,delayed 20 mg PO DAILY 06/21/21 06/20/24 History release nortriptyline 50 mg capsule 50 mg PO HS 10/05/21 06/20/24 History tiotropium bromide 2.5 1 puff inhalation BID 10/05/21 06/20/24 History mcg/actuation mist for inhalation (Spiriva Respimat) losartan 50 mg tablet 50 mg PO DAILY #90 tabs 12/27/23 06/20/24 Rx metoprolol succinate 50 mg 50 mg PO DAILY #90 tabs 01/07/24 06/20/24 Rx tablet,extended release 24 hr acetaminophen 500 mg tablet 500 mg PO DAILY PRN Pain 06/20/24 06/20/24 History atorvastatin 80 mg tablet 80 mg PO DAILY 06/20/24 06/20/24 History famotidine 20 mg tablet 20 mg PO BID 06/20/24 06/20/24 History folic acid 1 mg tablet 1 mg PO DAILY 06/20/24 06/20/24 History montelukast 10 mg tablet 10 mg PO DAILY 06/20/24 06/20/24 History Past Med/Surg History Problem List (Updated 06/20/24 @ 22:05 by Ananya Macdonald PA-C) Dysphagia Malnutrition Starvation ketoacidosis Acidosis (Acute) Acute dehydration (Acute) Elevated lactic acid level (Acute) Heme positive stool (Acute) Ischemia, bowel (Acute) Hypothermia (Acute) Hypotension (Acute) Abdominal pain (Acute) Encounter for interrogation of cardiac recorder Syncope Open wound of neck (Acute) Cellulitis (Acute) Depression Cellulitis of neck (Acute) Palpitations Chest pain in adult PAD (peripheral artery disease) (Acute) Hypertension (Acute) Dyslipidemia (Acute) CAD (coronary artery disease) (Acute) D1 with high grade stenosis, medical management recommended Medical History Acute kidney injury Acute dehydration Acute hypotension Tobacco abuse Surgical History History of cardiac catheterization Social History Smoking Status: Current some day smoker Tobacco Type: E-cigarettes / Vaping Second Hand Exposure: No; Do You Dip or Chew Tobacco: No; Tobacco Cessation Education Requested by Patient: No Hx Alcohol Use: Yes Alcohol type: beer Alcohol Intake Frequency: Monthly or Less Hx Substance Use: No Preferred Language: Syrian Communication Ability: Effective Visual Impairment: Limited Hearing Ability: Normal 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 Beliefs That Will Affect Care: None marital status: Current Living Situation: Family Current Living Situation Comment: Lives with her mother Other Information That Helps Us Care for You: No Feels Safe at Home: Yes Safety Concerns: Feels Safe At This Time Diet: regular caffeine: Yes Assistive Devices: None Review of Systems Review of Systems: The patient denies chest pain, palpitations, lower extremity swelling, sore throat, fevers, chills, sweats, blood in urine or stool, dysuria, urinary frequency or urgency, lightheadedness, dizziness, headache, memory loss, loss of consciousness, imbalance, focal weakness, numbness or tingling in arms or legs, generalized arthralgias or myalgias, back or neck pain, or night sweats. The review of systems is otherwise negative other than for that already noted above, and at least 10 systems have been reviewed. Physical Exam Physical Exam: The patient is awake, alert and oriented 3, significant signs of protein calorie malnutrition, lying in bed and in no acute distress. HEENT--PERRL, EOMI, mucous membranes and oropharynx mildly dry. Neck--supple. No JVD. No bruits. Thyroid normal, trachea midline, no adenopathy. Heart--normal S1 and S2. No murmurs, rubs or gallops. Lungs--clear bilaterally, no respiratory distress, no accessory muscle use. Abdomen--normal bowel sounds and soft. Nontender. Nondistended, no hernias or masses, no organomegaly. Extremities--no cyanosis or clubbing. No edema. There are good distal pulses b/l. Dermatologic--normal skin turgor, normal color, no abnormal lymph nodes, no rash. Neurologic--cranial nerves II through XII grossly intact. Rheumatologic--normal range of motion. Psychiatric--normal affect. Results & Data Results & Data Vital Signs (Past 12 Hours) Vital Signs Temp Pulse Pulse Resp BP BP Pulse Ox 06/20/24 19:12 36.1 C L 86 14 114/96 100 06/20/24 18:30 36 C L 101 H 14 144/101 H 99 06/20/24 18:15 35.7 C L 93 H 16 146/99 H 98 06/20/24 18:00 35.6 C L 100 H 17 127/91 96 06/20/24 17:45 35.6 C L 91 H 18 147/93 H 100 06/20/24 17:44 88 06/20/24 17:30 35.4 C L 84 16 148/95 H 99 06/20/24 17:15 35.4 C L 90 14 150/88 H 99 06/20/24 17:03 35.4 C L 97 H 18 134/74 100 06/20/24 17:00 35.5 C L 93 H 30 H 134/74 100 06/20/24 16:45 35.4 C L 105 H 23 148/91 H 100 06/20/24 16:24 35.2 C L 72 20 99 06/20/24 16:00 34.7 C L 64 18 128/78 100 06/20/24 15:45 34.6 C L 72 22 129/87 100 06/20/24 15:30 123/79 06/20/24 15:30 87 22 123/79 97 06/20/24 15:27 87 22 119/89 06/20/24 15:00 89 15 06/20/24 14:36 86 17 100 06/20/24 14:30 116/91 06/20/24 14:21 89 17 100 06/20/24 14:16 134/75 06/20/24 14:06 88 16 117/65 100 06/20/24 14:05 69 06/20/24 13:53 88/74 L 06/20/24 13:36 82 15 99/59 L 93 06/20/24 13:30 34.8 C L O2 Del Method 06/20/24 19:12 Room Air 06/20/24 18:30 06/20/24 18:15 06/20/24 18:00 06/20/24 17:45 06/20/24 17:44 06/20/24 17:30 06/20/24 17:15 06/20/24 17:03 06/20/24 17:00 06/20/24 16:45 06/20/24 16:24 06/20/24 16:00 06/20/24 15:45 06/20/24 15:30 06/20/24 15:30 Room Air 06/20/24 15:27 06/20/24 15:00 06/20/24 14:36 Room Air 06/20/24 14:30 06/20/24 14:21 Room Air 06/20/24 14:16 06/20/24 14:06 Room Air 06/20/24 14:05 06/20/24 13:53 06/20/24 13:36 Room Air 06/20/24 13:30 Laboratory Results Laboratory Results WBC 10.52 K/ul (4.8-10.8) 06/21/24 04:01 RBC 4.64 M/uL (4.20-5.40) 06/21/24 04:01 Hgb 14.5 g/dl (12.0-16.0) 06/21/24 04:01 Hct 42.5 % (37.0-47.0) 06/21/24 04:01 MCV 91.6 fL (80.0-100.0) 06/21/24 04:01 MCH 31.3 pg (25.0-34.0) 06/21/24 04:01 MCHC 34.1 g/dL (32.0-36.0) 06/21/24 04:01 RDW Std Deviation 45.2 fL (36.4-46.3) 06/21/24 04:01 RDW Coeff of Elyssa 13.4 % (11.5-14.5) 06/21/24 04:01 Plt Count 271 K/uL (130-400) 06/21/24 04:01 MPV 9.6 fL (9.4-12.4) 06/21/24 04:01 Immature Gran % (Auto) 0.7 % 06/21/24 04:01 Neut % (Auto) 86.8 % 06/21/24 04:01 Lymph % (Auto) 3.4 % 06/21/24 04:01 Dent % (Auto) 8.8 % 06/21/24 04:01 Eos % (Auto) 0.1 % 06/21/24 04:01 Baso % (Auto) 0.2 % 06/21/24 04:01 Neut # (Auto) 9.13 K/uL (1.40-6.50) H 06/21/24 04:01 Lymph # (Auto) 0.36 K/uL (1.20-3.40) L 06/21/24 04:01 Dent # (Auto) 0.93 K/uL (0.11-0.59) H 06/21/24 04:01 Eos # (Auto) 0.01 K/uL (0.00-0.50) 06/21/24 04:01 Baso # (Auto) 0.02 K/uL (0.00-0.20) 06/21/24 04:01 Immature Gran # (Auto) 0.07 K/uL (0.01-0.20) 06/21/24 04:01 PT 12.1 Seconds (9.0-12.0) H 06/20/24 13:55 INR 1.1 (0.9-1.1) 06/20/24 13:55 APTT 25 Seconds (21-31) 06/20/24 13:55 PTT Ratio 0.9 06/20/24 13:55 VBG pH 7.19 (7.36-7.41) L 06/20/24 20:51 VBG pCO2 38 mmHg (38-50) 06/20/24 20:51 VBG pO2 24 mmHg 06/20/24 20:51 VBG HCO3 15 mmol/L 06/20/24 20:51 VBG O2 Saturation < 60.0 % 06/20/24 20:51 VBG Base Excess -13.0 mEq/L 06/20/24 20:51 Sodium 130 mmol/L (136-145) L 06/20/24 20:51 Potassium 3.4 mmol/L (3.5-5.1) L 06/20/24 20:51 Chloride 98 mmol/L (98-107) 06/20/24 20:51 Carbon Dioxide 16 mmol/L (21-32) L 06/20/24 20:51 Anion Gap 16 (3-11) H 06/20/24 20:51 BUN 5 mg/dl (6-23) L 06/20/24 20:51 Creatinine 0.57 mg/dl (0.6-1.2) L 06/20/24 20:51 Est Cr Clr Drug Dosing 66.9 ml/min 06/20/24 20:51 eGFR 105.93 06/20/24 20:51 BUN/Creatinine Ratio 8.8 (10-20) L 06/20/24 20:51 Glucose 139 mg/dl (70-99(Fasting)) H 06/20/24 20:51 POC Glucose 212 mg/dl (70-99) H 06/21/24 03:40 Lactate 2.4 mmol/L (0.4-2.0) H* 06/20/24 22:49 Calcium 8.0 mg/dl (8.6-10.3) L 06/20/24 20:51 Magnesium 1.7 mg/dl (1.7-2.4) 06/20/24 13:55 Total Bilirubin 0.5 mg/dl (0.2-1.0) 06/20/24 13:55 Direct Bilirubin 0.1 mg/dl (0-0.2) 06/20/24 13:55 AST 31 U/L (13-39) 06/20/24 13:55 ALT 17 U/L (7-52) 06/20/24 13:55 Alkaline Phosphatase 73 U/L (34-104) 06/20/24 13:55 Troponin I High Sens 5.8 pg/ml (0-14) 06/20/24 13:55 Total Protein 7.2 gm/dl (6.0-8.3) 06/20/24 13:55 Albumin 4.0 gm/dl (3.4-5.0) 06/20/24 13:55 Triglycerides 95 mg/dl (0-150) 06/20/24 20:51 Cholesterol 104 mg/dl (0-200) 06/20/24 20:51 LDL Cholesterol, Calc 42 mg/dl 06/20/24 20:51 VLDL Cholesterol, Calc 19 mg/dl (0-30) 06/20/24 20:51 HDL Cholesterol 43 mg/dl 06/20/24 20:51 Cholesterol/HDL Ratio 2.4 (0-5) 06/20/24 20:51 Procalcitonin 8.31 ng/ml (0-0.5) H 06/20/24 13:55 Random Cortisol > 60.00 mcg/dl 06/20/24 15:32 Urine Color Yellow 06/20/24 Unknown Urine Appearance Clear (Clear) 06/20/24 Unknown Urine pH 5.5 (4.5-7.5) 06/20/24 Unknown Ur Specific [place] 1.009 (1.000-1.030) 06/20/24 Unknown Urine Protein Negative (Negative) 06/20/24 Unknown Urine Glucose (UA) Negative (Negative) 06/20/24 Unknown Urine Ketones 3+ (Negative) H 06/20/24 Unknown Urine Blood 1+ (Negative) H 06/20/24 Unknown Urine Nitrite Negative (Negative) 06/20/24 Unknown Urine Bilirubin Negative (Negative) 06/20/24 Unknown Urine Urobilinogen Negative (Negative) 06/20/24 Unknown Ur Leukocyte Esterase Negative (Negative) 06/20/24 Unknown Urine WBC (Auto) 0-5 /hpf (0-5) 06/20/24 Unknown Urine RBC (Auto) 3-5 /hpf (0-2) H 06/20/24 Unknown U Hyaline Cast (Auto) 6-10 /lpf (0-2) H 06/20/24 Unknown U Epithel Cells (Auto) 0-2 /hpf (0-2) 06/20/24 Unknown Urine Bacteria (Auto) None Seen (None Seen) 06/20/24 Unknown Nasal Screen MRSA (PCR) Negative (Negative) 06/20/24 Unknown Stl C. cayetanensis PCR Not Detected (NotDetected) 06/20/24 13:55 Stool Rotavirus A PCR Not Detected (NotDetected) 06/20/24 13:55 Stl Adenov F 40/41 PCR Not Detected (NotDetected) 06/20/24 13:55 Stool Astrovirus (PCR) Not Detected (NotDetected) 06/20/24 13:55 Stool Campylobacter PCR Not Detected (NotDetected) 06/20/24 13:55 Stl C. diff Tox B Gene Negative Cdiff Gene (Neg) 06/20/24 13:55 Stool Cryptosporidium PCR Not Detected (NotDetected) 06/20/24 13:55 Stl E.coli Shiga Tox PCR Not Detected (NotDetected) 06/20/24 13:55 Stl Enterotoxigenic E PCR Not Detected (NotDetected) 06/20/24 13:55 Stool EPEC (PCR) Not Detected (NotDetected) 06/20/24 13:55 Stool EAEC (PCR) Not Detected (NotDetected) 06/20/24 13:55 Stl E. histolytica PCR Not Detected (NotDetected) 06/20/24 13:55 Stool Giardia Lamblia PCR Not Detected (NotDetected) 06/20/24 13:55 Stool Salmonella PCR Not Detected (NotDetected) 06/20/24 13:55 Stool Sapovirus (PCR) Not Detected (NotDetected) 06/20/24 13:55 Stl P. shigelloides PCR Not Detected (NotDetected) 06/20/24 13:55 Stl Shigella/EIEC PCR Not Detected (NotDetected) 06/20/24 13:55 St Y.enterocolitica PCR Not Detected (NotDetected) 06/20/24 13:55 Stool Vibrio (PCR) Not Detected (NotDetected) 06/20/24 13:55 Stl Vibrio cholerae PCR Not Detected (NotDetected) 06/20/24 13:55 Stl Norovirus GI/GII PCR Not Detected (NotDetected) 06/20/24 13:55 Blood Type B Positive 06/20/24 15:36 Antibody Screen NEGATIVE 06/20/24 15:36 Impressions Chest X-Ray 06/20/24 13:46 XR chest 1V portable CLINICAL HISTORY: Sepsis COMPARISON STUDY: 10/04/2021 FINDINGS: Cardiac loop recorder is present. Heart size and pulmonary vasculature are normal. No effusion, consolidation, or pneumothorax. IMPRESSION: No acute findings. ACT 112: Negative or not required by law. Electronically signed by: Suman Patino M.D. 06/20/2024 3:10 PM Abdomen/Pelvis CT 06/20/24 13:57 Clinical History: Abdominal pain Technique: Axial computed tomography images were obtained of the abdomen and pelvis after the administration of intravenous contrast. Comparison is made to the prior CT dated 06/16/2024. Findings: The liver is overall of normal size, attenuation, and contour with no sign of cirrhosis or significant fatty infiltration. No liver mass lesion is seen. The portal vein is patent. The gallbladder appears unremarkable. No bile duct dilatation is noted. The spleen is of normal size. No focal splenic lesion is evident. The pancreas appears normal with no sign of acute or chronic pancreatitis and no mass lesion noted. The pancreatic duct is of normal caliber. The adrenal glands appear unremarkable. No definite renal or proximal ureteral calculi are seen on this contrast-enhanced study. There is no hydronephrosis or perinephric stranding. No renal mass lesion is identified. There are small bilateral renal cysts, measuring up to 8 mm in size The aorta is of normal caliber. There is extensive atherosclerotic plaque. 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 There is suspected right renal artery stenosis. No abdominal adenopathy is seen. The stomach appears normal. There is no sign of small bowel obstruction. The colon appears unremarkable. The appendix appears normal also. No free intraperitoneal fluid or air is identified. No distal ureteral or bladder calculi are seen. The bladder is decompressed, containing a Gutierrez catheter. The iliac arteries are of normal caliber. There are severe stenoses of the common iliac arteries bilaterally. No pelvic adenopathy is noted. The lungs bases appear clear. There is slight grade 1 anterolisthesis at L5-S1 due to L5 pars defects. No fracture is identified. No focal osseous lesion is seen Impression: 1. Extensive atherosclerosis with suspected renal and mesenteric artery stenosis as well as severe stenoses of the common iliac arteries bilaterally 2. Small bilateral renal cysts ACT 112: Positive. There are findings on this exam that require communication between the performing entity and the patient following Patient Test Result Information Act ([place] ACT 112) guidelines. Electronically signed by Dominick Basilio 06-20-2024 5:03 PM Code Status & VTE Plan Code Status Conditional code VTE Prophylaxis Plan VTE Prophylaxis will be ordered: Yes PG Care Time/CCT Total # of Minutes Spent Total Time Spent with Patient: Total time spent is greater than 50% in coordination of care (as documented) at patient's floor/unit and/or counseling patient: Coding Level of Care Code 69622 INT INP/OBS CARE 3/75MIN Diagnoses Ischemia, bowel K55.9 Hypotension I95.9 Hypotension type: unspecified hypotension type Malnutrition E46 Acute dehydration E86.0 (2) Hypotension Hypotension type: unspecified hypotension type Qualified Code(s): I95.9 - Hypotension, unspecified
[2024-06-20 21:24] LABS: BUN Creatinine Ratio 8.8 (10-20); Creatinine Clr Calc Pharmacy 66.9 ml/min; Potassium 3.4 mmol/L (3.5-5.1)
[2024-06-20] MEDS: PIPERACILLIN/TAZOBACTAM 4.5 GM/100 ML BAG IV SCH (23:00)
[2024-06-20] MEDS: HYDROmorphone INJ 0.5 MG/0.5 ML SYR IV PRN (23:31)
[2024-06-20] MEDS: D5W AND LACTATED RINGERS 1,000 ML IV SCH (23:31)
[2024-06-20 23:35] LABS: Chol HDL Ratio 2.4 (0-5)
[2024-06-21] MEDS: ICU Protocol for HYPERglycemia SCH (00:28)
[2024-06-21] MEDS: ACETAMINOPHEN 1000 MG/100 ML IV IV PRN (03:18)
[2024-06-21 04:12] LABS: Basophils # (auto) 0.02 K/uL (0.00-0.20); Basophils % (auto) 0.2 %; Eosinophils # (auto) 0.01 K/uL (0.00-0.50); Eosinophils % (auto) 0.1 %; Hematocrit (blood only) 42.5 % (37.0-47.0); Hemoglobin 14.5 g/dl (12.0-16.0); Immature Granulocytes # (auto) 0.07 K/uL (0.01-0.20); Immature Granulocytes % (auto) 0.7 %; Lymphocytes # (auto) 0.36 K/uL (1.20-3.40); Lymphocytes % (auto) 3.4 %; Mean Corpuscular Hemoglobin 31.3 pg (25.0-34.0); Mean Corpuscular Hgb Conc 34.1 g/dL (32.0-36.0); Mean Corpuscular Volume 91.6 fL (80.0-100.0); Mean Platelet Volume 9.6 fL (9.4-12.4); Monocytes # (auto) 0.93 K/uL (0.11-0.59); Monocytes % (auto) 8.8 %; Neutrophils # (auto) 9.13 K/uL (1.40-6.50); Neutrophils % (auto) 86.8 %; Platelet Count 271 K/uL (130-400); RDW Coefficient of Variation 13.4 % (11.5-14.5); RDW Standard Deviation 45.2 fL (36.4-46.3); Red Blood Count 4.64 M/uL (4.20-5.40); White Blood Count 10.52 K/ul (4.8-10.8)
[2024-06-21 05:22] LABS: Calcium 8.6 mg/dl (8.6-10.3); Magnesium 1.4 mg/dl (1.7-2.4)
[2024-06-21 05:28] LABS: BUN Creatinine Ratio 9.1 (10-20); Creatinine Clr Calc Pharmacy 100.9 ml/min; Phosphorus 2.8 mg/dl (2.5-4.9)
[2024-06-21] MEDS ORDERED: GLUCAGON FOR INJ 1 MG VIAL SQ PRN (05:35)
[2024-06-21] MEDS ORDERED: GLUCOSE 40% GEL 15 GM TUBE PO PRN (05:35)
[2024-06-21] MEDS ORDERED: GLUCOSE 10 TAB/TUBE PO PRN (05:35)
[2024-06-21] MEDS ORDERED: CARBOHYDRATES FOR HYPOGLYCEMIA PO PRN (05:35)
[2024-06-21] MEDS ORDERED: DEXTROSE 50% 50 ML SYRINGE IV PRN (05:35)
[2024-06-21] MEDS: POTASSIUM CHLORIDE 20 MEQ/15 ML UDC NG SCH (05:54)
[2024-06-21] MEDS: ICU ELECTROLYTE REPLACEMENT PROTOCOL SCH (05:55)
[2024-06-21] MEDS: MAGNESIUM SULFATE / D5W 1 GM/100 ML BAG IV SCH (05:55)
[2024-06-21] MEDS ORDERED: Nursing to Pharmacy Communication SCH (07:00)
[2024-06-21 07:01] LABS: Estimated Average Glucose 97 mg/dl
[2024-06-21] MEDS ORDERED: INSULIN ASPART PER UNIT CHARGE SC SCH (07:30)
[2024-06-21] MEDS: UMECLIDINIUM BROMIDE 62.5MCG/BLISTER 7 PUFFS/INHALER INH SCH (07:57)
[2024-06-21] MEDS: INSULIN ASPART PER UNIT CHARGE SC SCH (08:01)
[2024-06-21] MEDS: HYDROmorphone INJ 1 MG/ML SYRINGE IV STA (09:08)
[2024-06-21] MEDS: ONDANSETRON INJ 2 MG/ML 2 ML VIAL IV STA (09:08)
--- NOTE | 2024-06-21 09:10 | Critical Care Progress Note ---
Date of Service June 21, 2024 Assessment & Plan (1) Acute dehydration: (2) Elevated lactic acid level: (3) Heme positive stool: (4) Ischemia, bowel: (5) Hypotension: (6) Abdominal pain: (7) Starvation ketoacidosis: (8) Malnutrition: (9) Dysphagia: Plan Reason Critically Ill: 1. Acute on chronic ischemia of bowel 2/2 malperfusion from hypovolemia and hypotension 2. HAGMA 2/2 lactic acidosis and ketosis, improving with hydration 3. Severe protein calorie malnutrition complicated by tongue resection and difficulty eating 4. Financial insecurity 5. Sepsis 2/2 bacterial translocation 6. Possible LGIB 2/2 #1 Neuro - Multimodal pain management Scheduled APAP, IV Dilaudid PRN Hydroxyzine PRN Cardiac - History implantable pacemaker -Severe peripheral vascular disease MAP goal > 65mmHg, avoid hypotension with significant PAD Admit EKG WNL without ischemic changes Hold home antihypertensives, encouraged patient to check BP at home before taking Rx Continue statin Check lipid panel Respiratory - No acute concerns SpO2 goal > 92% CXR without acute cardiopulmonary disease IS/Flutter HOB 30 with aspiration precautions pending Speech evaluation Encouraged cessation of tobacco products GI - Acute on chronic mesenteric ischemia -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 -Goals of care will need to be addressed as there is unfortunately no effective treatment other than preventing symptomatology Failure to thrive and severe protein calorie malnutrition -Notes indicate ongoing weight loss and inability to take adequate nutrition -Patient weight: 09/2021: 60 kg; 09/2023: 48.5 kg; 05/2024 45.3 kg after fluid resuscitation, initial ED 38.9 kg, ideal body weight based on height 50 kg General Surgery aware of patient's case per ED notes Diet: Advance diet as tolerated after nursing dysphagia screen, start with liquids Nutrition consult, appreciate recommendations SUP: Home H2B Bowel regimen: Held Heme + stool likely from intestinal sloughing in the setting of relative ischemia. Can consider GI consultation if melena or hematochezia - Likely benefit from General Surgery or Vascular Surgery consult for formal declaration of surgical treatment options. RENAL/LYTES - ALEJANDRO -Attempting to replete electrolyte abnormalities Improving high gap metabolic acidosis: Lactic acid acidosis -Aggressive thiamine supplementation : 500 mg every 8 hours x 9 doses Discontinue Gutierrez and encourage ambulation ENDO - Probable starvation ketosis -Patient received adequate expansion, decreasing additional IV fluids to hopefully encourage oral intake Cortisol > 60 BG 140-180 per [facility] guidelines HEME/ONC/OTHER - CA in remission > 2 years per patient Case Management consult for disposition and financial assistance with food -Palliative care consult to facilitate goals of care Possible endometrial thickening noted on CT abdomen pelvis Abelev 06/16/[address] findings and clinical scenario will initiate systemic anticoagulation for presumptive high-grade mesenteric stenosis -Heparin infusion no bolus -Serial H&H every 8 hours ID - Stool PCR negative -Abdominal pain most likely consistent with acute on chronic mesenteric ischemia and blood per rectum consistent with sloughing -Stool PCR unremarkable, ED visit 3 days ago had very mild transaminitis we will continue Zosyn empirically for 48 hours if cultures remain negative would discontinue all anti-infectives -Procalcitonin of undetermined significance given acute kidney injury for severely protein calorie malnourished patient LINES/TUBES/DRAINS - PIV x2 DVT PROPHYLAXIS - -heparin infusion Admission and Anticipated Discharge Date Admission Date: June 20, 2024 Subjective Patient still having abdominal pain. When questioned over longer-term if she has had heme with large volume meals she reports she has not been able to eat large volume meals in several months. She appropriately questions over whether a feeding tube may be effective. We discussed while that may allow for additional nutrition her body's ability to process in the Sorbitrate nutrition still may be limited so therefore negating the effectiveness of supplemental feeding via feeding tube. If she was unable to make decisions for herself she has 5 children who she would prefer to make decisions at this time there is not 1 clear surrogate decision maker to be on the 5 children. She also reports that is an additional family member has terminal blood cancer that the children are dealing with. At this time pain is improved with additional narcotic administration. Physical Exam Physical Exam: General: Alert. nontoxic. Skin: Warm, dry, Head: Atraumatic Ears, nose, mouth and throat: airway patent Cardiovascular: Normal peripheral perfusion Respiratory: no respiratory distress Gastrointestinal: Non distended, no guarding no rebound, mild tenderness with deep palpation, this is surgical abdomen Musculoskeletal: No deformity Results & Data Results & Data Vital Signs (Past 12 Hours) Vital Signs Temp Pulse Pulse Resp BP BP Pulse Ox 06/21/24 08:06 36.5 C 06/21/24 08:02 163/91 H 06/21/24 07:36 36.8 C 113 H 17 98 06/21/24 07:00 163/98 H 06/21/24 07:00 163/98 H 06/21/24 07:00 163/98 H 06/21/24 07:00 36.8 C 83 13 96 06/21/24 05:04 167/94 H 06/21/24 05:04 167/94 H 06/21/24 05:04 167/94 H 06/21/24 05:03 36.9 C 107 H 11 L 98 06/21/24 05:00 36.8 C 83 18 98 06/21/24 05:00 172/96 H 06/21/24 04:53 169/94 H 06/21/24 04:53 169/94 H 06/21/24 04:53 169/94 H 06/21/24 04:53 169/94 H 06/21/24 04:51 36.9 C 81 9 L 98 06/21/24 04:09 36.9 C 84 11 L 98 06/21/24 03:00 36.8 C 99 H 19 90 06/21/24 02:03 36.8 C 82 15 98 06/21/24 02:01 122/93 06/21/24 02:01 122/93 06/21/24 02:01 122/93 06/21/24 02:01 122/93 06/21/24 02:01 122/93 06/21/24 02:01 122/93 06/21/24 02:01 122/93 06/21/24 02:01 122/93 06/21/24 02:01 122/93 06/21/24 02:01 122/93 06/21/24 02:01 122/93 06/21/24 02:01 122/93 06/21/24 02:01 122/93 06/21/24 02:01 122/93 06/20/24 23:12 36.6 C 101 H 14 100 06/20/24 23:00 136/99 06/20/24 23:00 136/99 06/20/24 23:00 136/99 06/20/24 23:00 136/99 06/20/24 23:00 136/99 06/20/24 23:00 136/99 06/20/24 22:48 36.8 C 101 H 11 L 99 06/20/24 22:36 36.7 C 90 9 L 99 06/20/24 22:34 36.7 C 90 14 132/105 H 100 06/20/24 22:25 132/105 H 06/20/24 22:25 132/105 H 06/20/24 22:25 132/105 H 06/20/24 22:25 132/105 H 06/20/24 22:25 132/105 H 06/20/24 22:25 132/105 H 06/20/24 22:25 132/105 H 06/20/24 22:25 132/105 H 06/20/24 22:25 132/105 H 06/20/24 22:25 132/105 H 06/20/24 22:25 132/105 H 06/20/24 22:25 132/105 H 06/20/24 22:25 132/105 H 06/20/24 22:07 36.7 C 95 H 14 167/109 H 99 06/20/24 21:29 36.7 C 104 H 14 136/108 H 100 O2 Del Method 06/21/24 08:06 06/21/24 08:02 06/21/24 07:36 Room Air 06/21/24 07:00 06/21/24 07:00 06/21/24 07:00 06/21/24 07:00 06/21/24 05:04 06/21/24 05:04 06/21/24 05:04 06/21/24 05:03 06/21/24 05:00 06/21/24 05:00 06/21/24 04:53 06/21/24 04:53 06/21/24 04:53 06/21/24 04:53 06/21/24 04:51 06/21/24 04:09 06/21/24 03:00 06/21/24 02:03 06/21/24 02:01 06/21/24 02:01 06/21/24 02:01 06/21/24 02:01 06/21/24 02:01 06/21/24 02:01 06/21/24 02:01 06/21/24 02:01 06/21/24 02:01 06/21/24 02:01 06/21/24 02:01 06/21/24 02:01 06/21/24 02:01 06/21/24 02:01 06/20/24 23:12 06/20/24 23:00 06/20/24 23:00 06/20/24 23:00 06/20/24 23:00 06/20/24 23:00 06/20/24 23:00 06/20/24 22:48 06/20/24 22:36 06/20/24 22:34 Room Air 06/20/24 22:25 06/20/24 22:25 06/20/24 22:25 06/20/24 22:25 06/20/24 22:25 06/20/24 22:25 06/20/24 22:25 06/20/24 22:25 06/20/24 22:25 06/20/24 22:25 06/20/24 22:25 06/20/24 22:25 06/20/24 22:25 06/20/24 22:07 Room Air 06/20/24 21:29 Room Air Critical Care Results & Data Vital Signs (Past 12 Hours) Vital Signs Temp Pulse Pulse Resp BP BP Pulse Ox 06/21/24 08:06 36.5 C 06/21/24 08:02 163/91 H 06/21/24 07:36 36.8 C 113 H 17 98 06/21/24 07:00 163/98 H 06/21/24 07:00 163/98 H 06/21/24 07:00 163/98 H 06/21/24 07:00 36.8 C 83 13 96 06/21/24 05:04 167/94 H 06/21/24 05:04 167/94 H 06/21/24 05:04 167/94 H 06/21/24 05:03 36.9 C 107 H 11 L 98 06/21/24 05:00 36.8 C 83 18 98 06/21/24 05:00 172/96 H 06/21/24 04:53 169/94 H 06/21/24 04:53 169/94 H 06/21/24 04:53 169/94 H 06/21/24 04:53 169/94 H 06/21/24 04:51 36.9 C 81 9 L 98 06/21/24 04:09 36.9 C 84 11 L 98 06/21/24 03:00 36.8 C 99 H 19 90 06/21/24 02:03 36.8 C 82 15 98 06/21/24 02:01 122/06/21/24 02:01 122/06/21/24 02:01 122/06/21/24 02:01 122/06/21/24 02:01 122/06/21/24 02:01 122/06/21/24 02:01 122/06/21/24 02:01 122/06/21/24 02:01 122/06/21/24 02:01 122/06/21/24 02:01 122/06/21/24 02:01 122/06/21/24 02:01 122/06/21/24 02:01 122/06/20/24 23:12 36.6 C 101 H 14 100 06/20/24 23:00 136/99 06/20/24 23:00 136/99 06/20/24 23:00 136/99 06/20/24 23:00 136/99 06/20/24 23:00 136/99 06/20/24 23:00 136/99 06/20/24 22:48 36.8 C 101 H 11 L 99 06/20/24 22:36 36.7 C 90 9 L 99 06/20/24 22:34 36.7 C 90 14 132/105 H 100 06/20/24 22:25 132/105 H 06/20/24 22:25 132/105 H 06/20/24 22:25 132/105 H 06/20/24 22:25 132/105 H 06/20/24 22:25 132/105 H 06/20/24 22:25 132/105 H 06/20/24 22:25 132/105 H 06/20/24 22:25 132/105 H 06/20/24 22:25 132/105 H 06/20/24 22:25 132/105 H 06/20/24 22:25 132/105 H 06/20/24 22:25 132/105 H 06/20/24 22:25 132/105 H 06/20/24 22:07 36.7 C 95 H 14 167/109 H 99 O2 Del Method 06/21/24 08:06 06/21/24 08:02 06/21/24 07:36 Room Air 06/21/24 07:00 06/21/24 07:00 06/21/24 07:00 06/21/24 07:00 06/21/24 05:04 06/21/24 05:04 06/21/24 05:04 06/21/24 05:03 06/21/24 05:00 06/21/24 05:00 06/21/24 04:53 06/21/24 04:53 06/21/24 04:53 06/21/24 04:53 06/21/24 04:51 06/21/24 04:09 06/21/24 03:00 06/21/24 02:03 06/21/24 02:01 06/21/24 02:01 06/21/24 02:01 06/21/24 02:01 06/21/24 02:01 06/21/24 02:01 06/21/24 02:01 06/21/24 02:01 06/21/24 02:01 06/21/24 02:01 06/21/24 02:01 06/21/24 02:01 06/21/24 02:01 06/21/24 02:01 06/20/24 23:12 06/20/24 23:00 06/20/24 23:00 06/20/24 23:00 06/20/24 23:00 06/20/24 23:00 06/20/24 23:00 06/20/24 22:48 06/20/24 22:36 06/20/24 22:34 Room Air 06/20/24 22:25 06/20/24 22:25 06/20/24 22:25 06/20/24 22:25 06/20/24 22:25 06/20/24 22:25 06/20/24 22:25 06/20/24 22:25 06/20/24 22:25 06/20/24 22:25 06/20/24 22:25 06/20/24 22:25 06/20/24 22:25 06/20/24 22:07 Room Air Lab & Micro Results (Past 24 Hours) RBC 4.64 M/uL (4.20-5.40) 06/21/24 WBC 10.52 K/ul (4.8-10.8) 06/21/24 Hgb 14.5 g/dl (12.0-16.0) 06/21/24 Hct 42.5 % (37.0-47.0) 06/21/24 MCV 91.6 fL (80.0-100.0) 06/21/24 MCH 31.3 pg (25.0-34.0) 06/21/24 MCHC 34.1 g/dL (32.0-36.0) 06/21/24 RDW Standard Deviation 45.2 fL (36.4-46.3) 06/21/24 RDW Coefficient of Variation 13.4 % (11.5-14.5) 06/21/24 Plt Count 271 K/uL (130-400) 06/21/24 MPV 9.6 fL (9.4-12.4) 06/21/24 Neutrophils (%) (Auto) 86.8 % 06/21/24 Lymphocytes (%) (Auto) 3.4 % 06/21/24 Monocytes # (Auto) 0.93 K/uL (0.11-0.59) H 06/21/24 Eosinophils # (Auto) 0.01 K/uL (0.00-0.50) 06/21/24 Immature Granulocyte % (Auto) 0.7 % 06/21/24 Neutrophils # (Auto) 9.13 K/uL (1.40-6.50) H 06/21/24 Lymphocytes # (Auto) 0.36 K/uL (1.20-3.40) L 06/21/24 Monocytes # (Auto) 0.93 K/uL (0.11-0.59) H 06/21/24 Eosinophils # (Auto) 0.01 K/uL (0.00-0.50) 06/21/24 Basophils # (Auto) 0.02 K/uL (0.00-0.20) 06/21/24 Immature Granulocyte # (Auto) 0.07 K/uL (0.01-0.20) 5 Na 132 mmol/L (136-145) L 06/21/24 K 3.0 mmol/L (3.5-5.1) L 06/21/24 Cl 100 mmol/L (98-107) 06/21/24 CO2 17 mmol/L (21-32) L 06/21/24 Anion Gap 15 (3-11) H 06/21/24 BUN 4 mg/dl (6-23) L 06/21/24 Creatinine 0.44 mg/dl (0.6-1.2) L 06/21/24 BUN/Creatinine Ratio 9.1 (10-20) L 06/21/24 Glu 190 mg/dl (70-99(Fasting)) H 06/21/24 Ca 8.6 mg/dl (8.6-10.3) 06/21/24 Phosphorus Level 2.8 mg/dl (2.5-4.9) 06/21/24 Total Bilirubin 0.5 mg/dl (0.2-1.0) 06/20/24 Direct Bilirubin 0.1 mg/dl (0-0.2) 06/20/24 AST 31 U/L (13-39) 06/20/24 ALT 17 U/L (7-52) 06/20/24 Alkaline Phosphatase 73 U/L (34-104) 06/20/24 TP 7.2 gm/dl (6.0-8.3) 06/20/24 Albumin 4.0 gm/dl (3.4-5.0) 06/20/24 Mg 1.4 mg/dl (1.7-2.4) L 06/21/24 04:01 Calcium Level 8.6 mg/dl (8.6-10.3) 06/21/24 04:01 Prothromb Time International Ratio 1.1 (0.9-1.1) 06/20/24 13:5 5 Venous Blood pH 7.19 (7.36-7.41) L 06/20/24 20:51 Venous Blood Partial Pressure CO2 38 mmHg (38-50) 06/20/24 20:5 1 Venous Blood Partial Pressure O2 24 mmHg 06/20/24 20:51 Venous Blood HCO3 15 mmol/L 06/20/24 20:51 Venous Blood Base Excess -13.0 mEq/L 06/20/24 20:51 Venous Blood Oxygen Saturation < 60.0 % 06/20/24 20:51 Diagnostic Findings (Past 24 Hours) Chest X-Ray 06/20/24 13:46 XR chest 1V portable CLINICAL HISTORY: Sepsis COMPARISON STUDY: 10/04/2021 FINDINGS: Cardiac loop recorder is present. Heart size and pulmonary vasculature are normal. No effusion, consolidation, or pneumothorax. IMPRESSION: No acute findings. ACT 112: Negative or not required by law. Electronically signed by: Suman Patino M.D. 06/20/2024 3:10 PM Abdomen/Pelvis CT 06/20/24 13:57 Clinical History: Abdominal pain Technique: Axial computed tomography images were obtained of the abdomen and pelvis after the administration of intravenous contrast. Comparison is made to the prior CT dated 06/16/2024. Findings: The liver is overall of normal size, attenuation, and contour with no sign of cirrhosis or significant fatty infiltration. No liver mass lesion is seen. The portal vein is patent. The gallbladder appears unremarkable. No bile duct dilatation is noted. The spleen is of normal size. No focal splenic lesion is evident. The pancreas appears normal with no sign of acute or chronic pancreatitis and no mass lesion noted. The pancreatic duct is of normal caliber. The adrenal glands appear unremarkable. No definite renal or proximal ureteral calculi are seen on this contrast-enhanced study. There is no hydronephrosis or perinephric stranding. No renal mass lesion is identified. There are small bilateral renal cysts, measuring up to 8 mm in size The aorta is of normal caliber. There is extensive atherosclerotic plaque. 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 There is suspected right renal artery stenosis. No abdominal adenopathy is seen. The stomach appears normal. There is no sign of small bowel obstruction. The colon appears unremarkable. The appendix appears normal also. No free intraperitoneal fluid or air is identified. No distal ureteral or bladder calculi are seen. The bladder is decompressed, containing a Gutierrez catheter. The iliac arteries are of normal caliber. There are severe stenoses of the common iliac arteries bilaterally. No pelvic adenopathy is noted. The lungs bases appear clear. There is slight grade 1 anterolisthesis at L5-S1 due to L5 pars defects. No fracture is identified. No focal osseous lesion is seen Impression: 1. Extensive atherosclerosis with suspected renal and mesenteric artery stenosis as well as severe stenoses of the common iliac arteries bilaterally 2. Small bilateral renal cysts ACT 112: Positive. There are findings on this exam that require communication between the performing entity and the patient following Patient Test Result Information Act ([place] ACT 112) guidelines. Electronically signed by Dominick Basilio 06-20-2024 5:03 PM I & O Totals 24 Hours 06/20/24 06/21/24 06/22/24 06:59 06:59 06:59 Intake Total 3220 / 3220 100 / 100 Output Total 1800 / 1800 175 / 175 Balance 1420 / 1420 -75 / -75 Cumulative 06/20/24 13:12 thru 06/21/24 08:00 Intake Total 3320 Output Total 1975 Balance 1345 RT Ventilator Mngmt (Last Documented) Ventilator Ordered Settings Respiratory Rate 17 06/21/24 07:36 Ventilator - PT Measurements Respiratory Rate 17 Coding Level of Care Code 23427 SUB INP/OBS CARE 3/50MIN Diagnoses Acute dehydration E86.0 Elevated lactic acid level R79.89 Heme positive stool R19.5 Ischemia, bowel K55.9 Hypotension I95.9 Hypotension type: unspecified hypotension type Abdominal pain R10.9 Starvation ketoacidosis T73.0XXA; E87.29 Malnutrition E46 Dysphagia R13.10 (5) Hypotension Hypotension type: unspecified hypotension type Qualified Code(s): I95.9 - Hypotension, unspecified
[2024-06-21 09:45] LABS: Hematocrit (blood only) 36.1 % (37.0-47.0); Hemoglobin 12.7 g/dl (12.0-16.0)
--- NOTE | 2024-06-21 09:57 | Hospitalist Progress Note ---
Date of Service June 21, 2024 Assessment & Plan (1) Ischemia, bowel: (2) Hypotension: (3) Malnutrition: (4) Acute dehydration: Plan The patient is a 58-year-old female with a past medical history including peripheral arterial disease, hypertension, dyslipidemia, coronary disease, GERD, hyperlipidemia, peripheral neuropathy, and COPD. The patient presents to the emergency department with concerns regarding a recently diagnosed potential uterine mass. She reports having at least 1 month of issues with crampy abdominal pain and diarrhea. Upon initial presentation to the emergency department, her systolic blood pressures in the 80s to 90s. Her HPI and review of systems are very limited, in part associated with patient's intellectual capacity. She has had decreased oral intake as noted for the past several months, and has continued to lose significant amounts of weight, showing issues with protein calorie malnutrition. Workup in the emergency department included CT scan of abdomen pelvis which shows extensive atherosclerosis with suspected renal and mesenteric artery stenoses as well as severe stenosis of common iliac arteries bilaterally. Acute on chronic mesenteric ischemia, SMA stenosis CTA/P with contrast: Severe stenosis of proximal SMA, suspected right renal artery stenosis Suspect due to volume contraction/depletion on arterial insufficiency, poor p.o. intake in part related to difficulty swallowing due to partial glossectomy Heme positive stool with enteric sloughing/ischemia due to poor perfusion. Lactate downtrending following antibiotics and fluids Continue Alice Case was reviewed by vascular surgery at [place]. No acute findings, does have severe proximal SMA stenosis and diffuse arterial disease however findings are chronic without acute occlusion. Agree with heparinization for arterial vascular disease. Eventually patient would benefit from a combination of anticoagulation, Plavix, and statin therapy Follow for bleeding, trend H&H Protein calorie malnutrition, BMI 18.3, poor p.o. intake (followed by [facility] outpt) Patient reports that she has difficulty chewing due to her partial glossectomy. She reports that she does not actually have trouble swallowing, but her food choices are limited by her ability to chew them. She reports when she has been able to chew food or when drinking shakes she has never had problems with swallowing/dysphagia/food getting stuck in her throat. Speech is following. Video swallow is pending. She was recommended for smoothies, shakes, and boost by her ward aide however she notes that she has not kept up with this partially due to difficulty coordinating these foods and partially due to cost Boost 3 times daily Minced and moist diet Dietitian following High-dose thiamine protocol ordered by ICU, continued. Ferritin/iron panelPending. Vitamin D level 04/2023 deficient at 19.36. Recheck pending. Repletion ordered. Patient difficulty chewing/swallowing vitamins. May add multivitamin liquid. Partial glossectomy ([facility] 2021) 2/ malignancy without residual disease/metastasis. HAGMA Metabolic/lactic acidosis in the setting of poor p.o. intake and impaired gut perfusion Continue IV FM Phosphate 1.2/potassium 3.1, 24 mmol potassium phosphate ordered by ICU. Trend and replete daily Continue D5 LR as base maintenance fluid Magnesium 1.4. Repleted. Trend daily, transition to p.o. when able versus extended IV infusion. Can extend infusions over an additional hour to minimize renal losses CAD/hypertension/history of STEMI Follows with cardiology as an outpatient Denies history of stents Long-term anticipate statin/antiplatelet/anticoagulation therapy No chest pain or ischemic symptoms 06/21 Carotid stenosis- - Carotid duplex 12/15/2019 anterograde flow in right vertebral artery, and left vertebral artery is occluded -Medications as noted History of intracranial hemorrhage (evaluated at [facility] approximately 10- 15 years ago) Patient reports greater than 10 years ago, intracranial bleed due to trauma and skull fracture. No residual deficits. Denies any bleeding complications since then other than small cuts up until current bowel episode. Denies history of spontaneous bleeding. Goals of care: Discussed goals of care with patient. She reports an understanding that she has lost a great deal of weight, attributes a large amount of this to poor nutrition. She expresses an understanding that her current mesenteric ischemia is both from vascular disease and worsened by severe volume depletion. She understands that even oral nutrition and feeding from something like a NG tube or PEG tube might help get nutrition to her gut however may still be limited by her arterial disease. She reports that if she were a candidate for any possible surgeries to either help improve the quality or extend her length of life she would want to pursue these. She notes the most important factors for her are extending her life so she can be present for her children/grandchildren. If she had already (complete cardiopulmonary arrest) then would not want CPR/resuscitation especially if there is a high risk of brain damage or being ventilation dependent however would want intubation and support for any declining respiratory status outside of that. Admission and Anticipated Discharge Date Admission Date: June 20, 2024 Subjective Records review: Recently diagnosed uterine mass. Significant weight loss over previous few months. Poor diet and intake. Also with renal/mesenteric artery stenosis and severe common iliac artery stenosis. Presented with abdominal pain Presented to the ER with hypotension, cramping, diarrhea, elevated procalcitonin, hematochezia Significant metabolic acidosis, lactic acidosis, hyponatremia, volume contraction consistent with severe volume depletion Was suspected to be due to mesenteric ischemia with poor p.o. intake Elevated Pro-Saul and met sepsis criteria was treated with IV Zosyn empirically, PPI IV for presumed GI bleedAlthough given mesenteric ischemia this is most likely lower rather than upper Patient was recommended for transfer on initial ER evaluation [place] reviewed labs and studies. Patient was not accepted for transfer. Was recommended for admission at [facility] with supportive care. Suspect its symptoms due to bowel ischemia with heme positive stool. Case was reviewed prior to admission by general surgery Dr. Sanders, vascular surgery Dr. Koch, and on-call GI Dr. Albarado, [facility] triage Dr. Alvarez. On review of his CT extensive atherosclerosis and narrowing of proximal SMA was seen. Images were reviewed at [place] by Dr. Hardy vascular surgery noted all findings appeared chronic and recommended outpatient vascular surgery. Discussed patient's history and course at bedside. 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 This was done around 2019 04-2022 No longer follows up notes [place] but notes since then she has difficulty eating due to texture although does not have difficulty swallowing. She clarifies that if she is eating something that she can chew she has never had separate difficulty swallowing, and has had no difficulty swallowing shakes/thickened liquids in the past. She endorses that she does have an appetite. "I am hungry, just hard to eat ". Mesenteric ischemia With extensive vascular disease. She reports she does not have pain or worsened by meals but has had generalized abdominal pain in the last 4 weeks which worsened around 2 weeks ago. Did not have any issues with bright red blood per rectum or bleeding up until her current admission She reports that she has tried Pepto-Bismol, kaycee get, and small meals but this does not help her pain. She does not think that this worsens her pain either. Has not found any worsening or remitting factors overall. Pain was 78/10 when coming in, now is "not too bad maybe 4 or 5 " She has never seen a vascular surgeon or vascular team previously. Her images and case was reviewed by [facility] as noted who noted chronic appearing findings, recommended medical therapy and outpatient vascular follow-up On CT severe stenosis of proximal SMA, suspected right renal artery stenosis She was previously on Plavix but stopped this sometimes ago and really only uses ibuprofen as needed for pain. Is open to starting anticoagulation and Plavix again for vascular disease Distant history of of ICH (seen at [facility] approximately 10-15 years ago) She reports a fall with head trauma,? Skull fracture, and intracranial bleed over 10 years ago for which she was seen at [facility]. No bleeding or complications of this per her report. Nutrition Follows with [facility] for nutrition and ongoing care She reports she has been recommended to drink smoothies and supplement with protein shakes however she has not done this in "a long time "as she notes that these are very costly and she is not able to afford them. She has lost significant weight over the previous few months. Again notes that she is generally hungry but is hard to either find food that she can chew and is sometimes also limited by cost Is also following with the cancer center for concern for possible uterine cancer, she has not had a follow-up appointment for this yet. No uterine abnormality noted on CTA/P Has had some medical care at [facility] including delivery of her children. Denies other major surgeries here Vapes daily but does not use cigarettes/cigars. She does have history of a small amount of alcohol use daily but notes she has not had any alcohol in the last week at least due to her stomach discomfort. Denies withdrawal symptoms. Record request to [facility], [facility], [place], and [facility] sent Physical Exam Physical Exam: General: Cachectic, thin. Oriented to name place and year. HEENT: s/p partial glossectomy. No facial asymmetry. Vision/hearing grossly intact Pulm: CTAB A&P. -wheezes, -rales, -rhonchi. Symmetrical chest rise. No increased work of breathing. No respiratory distress. Cardiac: RRR, -mrg. Radial pulses intact and symmetrical. Abdominal: Diffuse TTP without rigidity/guarding/tympany. Results & Data Results & Data Vital Signs (Past 12 Hours) Vital Signs Temp Pulse Pulse Resp BP BP Pulse Ox 06/21/24 08:06 36.5 C 06/21/24 08:02 163/91 H 06/21/24 07:36 36.8 C 113 H 17 98 06/21/24 07:00 163/98 H 06/21/24 07:00 163/98 H 06/21/24 07:00 163/98 H 06/21/24 07:00 36.8 C 83 13 96 06/21/24 05:04 167/94 H 06/21/24 05:04 167/94 H 06/21/24 05:04 167/94 H 06/21/24 05:03 36.9 C 107 H 11 L 98 06/21/24 05:00 36.8 C 83 18 98 06/21/24 05:00 172/96 H 06/21/24 04:53 169/94 H 06/21/24 04:53 169/94 H 06/21/24 04:53 169/94 H 06/21/24 04:53 169/94 H 06/21/24 04:51 36.9 C 81 9 L 98 06/21/24 04:09 36.9 C 84 11 L 98 06/21/24 03:00 36.8 C 99 H 19 90 06/21/24 02:03 36.8 C 82 15 98 06/21/24 02:01 122/06/21/24 02:01 122/06/21/24 02:01 122/06/21/24 02:01 122/06/21/24 02:01 122/06/21/24 02:01 122/06/21/24 02:01 122/06/21/24 02:01 122/06/21/24 02:01 122/06/21/24 02:01 122/06/21/24 02:01 122/06/21/24 02:01 122/06/21/24 02:01 122/06/21/24 02:01 122/06/20/24 23:12 36.6 C 101 H 14 100 06/20/24 23:00 136/99 06/20/24 23:00 136/99 06/20/24 23:00 136/99 06/20/24 23:00 136/99 06/20/24 23:00 136/99 06/20/24 23:00 136/99 06/20/24 22:48 36.8 C 101 H 11 L 99 06/20/24 22:36 36.7 C 90 9 L 99 06/20/24 22:34 36.7 C 90 14 132/105 H 100 06/20/24 22:25 132/105 H 06/20/24 22:25 132/105 H 06/20/24 22:25 132/105 H 06/20/24 22:25 132/105 H 06/20/24 22:25 132/105 H 06/20/24 22:25 132/105 H 06/20/24 22:25 132/105 H 06/20/24 22:25 132/105 H 06/20/24 22:25 132/105 H 06/20/24 22:25 132/105 H 06/20/24 22:25 132/105 H 06/20/24 22:25 132/105 H 06/20/24 22:25 132/105 H 06/20/24 22:07 36.7 C 95 H 14 167/109 H 99 O2 Del Method 06/21/24 08:06 06/21/24 08:02 06/21/24 07:36 Room Air 06/21/24 07:00 06/21/24 07:00 06/21/24 07:00 06/21/24 07:00 06/21/24 05:04 06/21/24 05:04 06/21/24 05:04 06/21/24 05:03 06/21/24 05:00 06/21/24 05:00 06/21/24 04:53 06/21/24 04:53 06/21/24 04:53 06/21/24 04:53 06/21/24 04:51 06/21/24 04:09 06/21/24 03:00 06/21/24 02:03 06/21/24 02:01 06/21/24 02:01 06/21/24 02:01 06/21/24 02:01 06/21/24 02:01 06/21/24 02:01 06/21/24 02:01 06/21/24 02:01 06/21/24 02:01 06/21/24 02:01 06/21/24 02:01 06/21/24 02:01 06/21/24 02:01 06/21/24 02:01 06/20/24 23:12 06/20/24 23:00 06/20/24 23:00 06/20/24 23:00 06/20/24 23:00 06/20/24 23:00 06/20/24 23:00 06/20/24 22:48 06/20/24 22:36 06/20/24 22:34 Room Air 06/20/24 22:25 06/20/24 22:25 06/20/24 22:25 06/20/24 22:25 06/20/24 22:25 06/20/24 22:25 06/20/24 22:25 06/20/24 22:25 06/20/24 22:25 06/20/24 22:25 06/20/24 22:25 06/20/24 22:25 06/20/24 22:25 06/20/24 22:07 Room Air PG Care Time/CCT Total # of Minutes Spent Total Time Spent with Patient: Total time spent is greater than 50% in coordination of care (as documented) at patient's floor/unit and/or counseling patient: Coding Level of Care Code 50854 SUB INP/OBS CARE 3/50MIN Diagnoses Ischemia, bowel K55.9 Hypotension I95.9 Hypotension type: unspecified hypotension type Malnutrition E46 Acute dehydration E86.0 (2) Hypotension Hypotension type: unspecified hypotension type Qualified Code(s): I95.9 - Hypotension, unspecified
[2024-06-21] MEDS: THIAMINE HCL 500 MG in SODIUM CHLORIDE 0.9% 50 ML IV SCH (10:22)
[2024-06-21] MEDS: Heparin IV Adult Wt-Based Standard *NO* INITIAL Bolus Protocol IV SCH (10:46)
[2024-06-21] MEDS: HEPARIN 25000 UNIT/500 ML D5W IV ONE (10:48)
[2024-06-21] MEDS: HEPARIN 25000 UNIT/500 ML D5W 25,000 UNITS/500 ML BAG IV SCH (10:48)
[2024-06-21 12:22] LABS: BUN Creatinine Ratio 8.3 (10-20); Calcium 7.9 mg/dl (8.6-10.3); Creatinine Clr Calc Pharmacy 123.3 ml/min; Potassium 3.1 mmol/L (3.5-5.1)
[2024-06-21 12:25] LABS: Magnesium 2.8 mg/dl (1.7-2.4); Phosphorus 1.2 mg/dl (2.5-4.9)
[2024-06-21] MEDS ORDERED: POTASSIUM PHOS 3 MMOL/1 ML INFUSION IV STA (12:46)
[2024-06-21] MEDS: POTASSIUM PHOSPHATE 24 MMOL in SODIUM CHLORIDE 0.9% 500 ML IV ONE (14:28)
[2024-06-21] MEDS: PANTOprazole 40 MG/10 ML SYR IV SCH (16:47)
[2024-06-21 17:54] LABS: Hemoglobin 9.6 g/dl (12.0-16.0)
[2024-06-21 19:21] LABS: ANTI-Xa, UFH(UnfractionatedHep 0.96 IU/ml (0.3-0.7)
[2024-06-22 00:35] LABS: Hematocrit (blood only) 36.1 % (37.0-47.0); Hemoglobin 12.6 g/dl (12.0-16.0)
[2024-06-22 03:47] LABS: ANTI-Xa, UFH(UnfractionatedHep > 1.50 IU/ml (0.3-0.7)
--- NOTE | 2024-06-22 06:06 | Communication Note ---
Date of Service: June 22, 2024 Patient complaining of mild R frontal headache, throbbing in nature. She was evaluated at bedside. Tells me this is similar to her prior headaches/migraines. Blurry vision which is chronic, she is not wearing her glasses. PERRL. No numbness/paresthesias. No motor or sensory deficit on exam. No facial droop. Given she is supratherapeutic on her heparin we will obtain plain CTH to completely rule out ICH. Heparin is already paused per protocol until anti-Xa < 0.7. Coding Level of Care Code None
[2024-06-22 06:34] LABS: Anion Gap 8 (3-11); Blood Urea Nitrogen < 2 mg/dl (6-23); Calcium 8.2 mg/dl (8.6-10.3); Carbon Dioxide 29 mmol/L (21-32); Chloride 93 mmol/L (98-107); Creatinine Clr Calc Pharmacy 125.8 ml/min; Glucose 124 mg/dl (70-99(Fasting)); Iron 13 mcg/dl (35-150); Magnesium 1.9 mg/dl (1.7-2.4); Phosphorus 1.7 mg/dl (2.5-4.9); Sodium 130 mmol/L (136-145); Total Iron Binding Cap Calc 223 mcg/dl (250-450); Transferrin 159 mg/dl (200-360); Transferrin (FE) Percent Satur 6 % (15-50)
[2024-06-22] MEDS ORDERED: SODIUM PHOSPHATE 3 MMOL/1 ML INFUSION IV STA (06:37)
[2024-06-22 06:40] LABS: ANTI-Xa, UFH(UnfractionatedHep 0.76 IU/ml (0.3-0.7)
[2024-06-22 06:43] LABS: Hematocrit (blood only) 39.6 % (37.0-47.0); Hemoglobin 13.8 g/dl (12.0-16.0); Mean Corpuscular Hemoglobin 31.2 pg (25.0-34.0); Mean Corpuscular Hgb Conc 34.8 g/dL (32.0-36.0); Mean Corpuscular Volume 89.6 fL (80.0-100.0); Mean Platelet Volume 9.8 fL (9.4-12.4); Platelet Count 291 K/uL (130-400); RDW Coefficient of Variation 13.4 % (11.5-14.5); RDW Standard Deviation 44.3 fL (36.4-46.3); Red Blood Count 4.42 M/uL (4.20-5.40); White Blood Count 8.01 K/ul (4.8-10.8)
[2024-06-22 06:46] LABS: Basophils # (auto) 0.02 K/uL (0.00-0.20); Basophils % (auto) 0.2 %; Echinocytes 2+; Immature Granulocytes # (auto) 0.09 K/uL (0.01-0.20); Immature Granulocytes % (auto) 1.1 %; Lymphocytes # (auto) 0.54 K/uL (1.20-3.40); Lymphocytes % (auto) 6.7 %; Monocytes # (auto) 1.09 K/uL (0.11-0.59); Monocytes % (auto) 13.6 %; Neutrophils # (auto) 6.27 K/uL (1.40-6.50); Neutrophils % (auto) 78.4 %; Polychromasia 1+; Toxic Granulation 1+; Toxic Vacuolation 1+
[2024-06-22 06:49] LABS: Ferritin 263.1 ng/ml (8-388)
--- NOTE | 2024-06-22 07:08 | CT Scan Report ---
EXAM: CT head/brain wo con CLINICAL HISTORY: New headache with supratherapeutic anticoagulation TECHNIQUE: Axial non-contrast CT scan of the brain was performed from the skull base to the high parietal region with coronal and sagittal reformats. One of the following dose reduction techniques were utilized for this exam: Automated exposure control, adjustment of the mA and/or kV according to patient size, use of iterative reconstruction. CTDI: 38mGy, DLP: 547mGy*cm. COMPARISON: CT study dated 11/14/2023 FINDINGS: Brain Parenchyma: Right periventricular encephalomalacic area with CSF attenuation, with mild ex-vacuu dilatation of the anterior horn right lateral ventricle, suggesting old ischemic insult. Left BG small focus of CSF attenuation suggesting old ischemic lacunar infarction Vs dilated perivascular space. No evidence of acute infarct, hemorrhage, or mass effect. No intra or extra-axial fresh blood density seen at the time of examination. No abnormal areas of hypo- or hyperattenuation. Ventricular System: Ventricles are normal in size and configuration. No evidence of hydrocephalus or ventricular enlargement. Subarachnoid Spaces: Normal sulci and cisterns. No evidence of subarachnoid hemorrhage or extra-axial fluid collections. Cerebellum and Brainstem: Normal size and signal. No masses, lesions, or areas of abnormal signal. Orbits: Normal appearance of the globes, optic nerves, and extraocular muscles. No evidence of orbital masses or abnormal signal. Sinuses: Clear paranasal sinuses. No evidence of sinusitis or mucosal thickening. Mastoid Air Cells: Clear mastoid air cells. No evidence of mastoiditis. Skull: Normal skull morphology. IMPRESSION: 1. No intra or extra-axial fresh blood density seen at the time of examination. 2. No evidence of acute abnormalities. 3. Right periventricular encephalomalacic area of chronic infarction. 4. Left BG small focus of CSF attenuation suggesting old lacunar infection Vs dilated perivascular space. 5. Stationary findings no time interval significant radiological changes. Electronically signed by Benjamin Che 06-22-2024 07:07 AM
[2024-06-22] MEDS: ondansetron HCL 6 MG in DEXTROSE 5% 50 ML IV STA (07:16)
[2024-06-22] MEDS: D5W AND LACTATED RINGERS 1,000 ML IV SCH (07:19)
[2024-06-22] MEDS: MAGNESIUM SULFATE / D5W 1 GM/100 ML BAG IV SCH (07:20)
[2024-06-22] MEDS: POTASSIUM CHLORIDE / WTR 10 MEQ/100 ML PLCT IV SCH (07:20)
[2024-06-22] MEDS: MULTI VIT W/MINERALS LIQUID 15 ML UDC PO SCH (07:20)
[2024-06-22] MEDS: SODIUM PHOSPHATE 21 MMOL in SODIUM CHLORIDE 0.9% 500 ML IV ONE (07:20)
[2024-06-22 07:47] LABS: ANTI-Xa, UFH(UnfractionatedHep 0.48 IU/ml (0.3-0.7)
[2024-06-22] MEDS: OPTIRAY 320 100ml IV ONE (10:37)
--- NOTE | 2024-06-22 11:06 | CT Scan Report ---
EXAM: CT Abdomen and Pelvis With Intravenous Contrast INDICATION: Abdominal pain. Evaluate for mesenteric ischemia. TECHNIQUE: Axial computed tomography images of the abdomen and pelvis with intravenous contrast. Sagittal and coronal reformatted images were created and reviewed. This CT exam was performed using one or more of the following dose reduction techniques: automated exposure control, adjustment of the mA and/or kV according to patient size, and/or use of iterative reconstruction technique. CONTRAST: 94ml of Optiray 320 was administered intravenously. COMPARISON: 06/16/2024 FINDINGS: Limitations: None. Lung bases: No abnormality noted. Pleural space: No visualized pleural effusion or pneumothorax. Heart: No abnormality noted. Mediastinum: No abnormality noted. ABDOMEN: Liver: Normal size and contour. Hypodense typical of steatosis. No mass or ductal dilation. Gallbladder and bile ducts: The gallbladder is distended. No calcified stones. No ductal dilatation or calcification. Pancreas: Homogeneous enhancement. No mass, inflammation or ductal dilation. Spleen: No significant abnormality noted. Adrenals: No significant abnormality noted. Kidneys and ureters: Simple bilateral renal cysts noted. No follow-up necessary. No stones or hydronephrosis. Stomach and bowel: There is diffuse colonic wall hyperemia, thickening and mild inflammation. Segments of small bowel thickening noted. Prominent fluid throughout the bowel and stomach. No obstruction. PELVIS: Appendix: Well seen and appears normal. Bladder: There is a catheter balloon inflated in the urinary bladder lumen which is collapsed and not optimally assessed. No stones. Reproductive: No abnormalities noted. ABDOMEN and PELVIS: Intraperitoneal space: No free air. No significant fluid collection. Bones/joints: Chronic bilateral L5 pars defects are stable. No acute osseous abnormality. Soft tissues: No significant abnormality noted. Vasculature: There is diffuse atherosclerosis of the aorta and major branches. Stable dense calcification of the superior mesenteric artery with high-grade stenosis. Stable stenosis of the bilateral renal and iliac arteries. There is flow and calcification of the extreme distal horizontal segment of the SMA. The NEGIN is patent. Stable stenosis at the origin of the celiac trunk with reconstitution of the celiac branches. Lymph nodes: No pathologically enlarged lymph nodes. IMPRESSION: There is diffuse intestinal hyperemia, thickening and stasis most concerning for enterocolitis. Ischemic cause is considered given dense atherosclerotic calcification with stenosis of the celiac trunk and SMA. No perforation or abscess. ACT 112: N/A Electronically signed by Olinda Dahl 06-22-2024 11:05 AM
--- NOTE | 2024-06-22 12:35 | Discharge Summary ---
Discharge Summary Date of Service June 22, 2024 Principal Dx & Hospital Course #1 = Principal Diagnosis (1) Ischemia, bowel: (2) Hypotension: (3) Malnutrition: (4) Acute dehydration: Plan The patient is a 58-year-old female with a past medical history including peripheral arterial disease, hypertension, dyslipidemia, coronary disease, GERD, hyperlipidemia, peripheral neuropathy, and COPD. The patient presents to the emergency department with concerns regarding a recently diagnosed potential uterine mass. She reports having at least 1 month of issues with crampy abdominal pain and diarrhea. Upon initial presentation to the emergency department, her systolic blood pressures in the 80s to 90s. Her HPI and review of systems are very limited, in part associated with patient's intellectual capacity. She has had decreased oral intake as noted for the past several months, and has continued to lose significant amounts of weight, showing issues with protein calorie malnutrition. Workup in the emergency department included CT scan of abdomen pelvis which shows extensive atherosclerosis with suspected renal and mesenteric artery stenoses as well as severe stenosis of common iliac arteries bilaterally. Acute on chronic mesenteric ischemia, SMA stenosis CTA/P with contrast: Severe stenosis of proximal SMA, suspected right renal artery stenosis Suspect due to volume contraction/depletion on arterial insufficiency, poor p.o. intake in part related to difficulty swallowing due to partial glossectomy Heme positive stool with enteric sloughing/ischemia due to poor perfusion. Adrian Jenkins Case was reviewed by vascular surgery at [place] initially prior admission. No acute findings, does have severe proximal SMA stenosis and diffuse arterial disease however findings are chronic without acute occlusion and pt was feeling improved initially --> recommended admission and medical management. 06/22 patient reports worsened pain than on previous days generally feeling poor. Endorses worsening abdominal pain this AM. Normotensive. Net 7.7 L positive. Lactate uptrending. Repeat VBG pending. Repeat CTA/P with diffuse intestinal hyperemia, thickening, stasis concerning for enterocolitis versus ischemia. Dense calcification with stenosis of the celiac trunk and SMA. No perforation or abscess Discussed the patient and her daughter at bedside. Patient was somewhat reticent to have her family know about her symptoms and worries about stress on her children but now notes that while she initially dismissed this is GERD she has had postprandial pain for the last month. On further discussion with her daughter at bedside admits that this may have been present for several months. Called [place] via transfer center to review case given continued abdominal pain, uptrending lactate, and concern for ongoing mesenteric insufficiency with SMA stenosis. She remains heparinized, fortunately hemoglobin is stable and hematochezia/melena have improved. Corin reports that she would want any and all options including surgery available to her if it could potentially extend her life as regardless of quality her biggest concern would be extending her life to be present for her children. - Reviewed with vascular surgery. Did discuss with ICU Dr. Carr prior to transfer that pt is currently in the ICU due to electrolyte derangements, acidosis, and monitoring for bleeding while on heparin gtt, although is not on any vasopressors and is not intubated. ICU vs non-icu/vascular primary admit was reviewed by [facility] internally. Accepted to C-ICU [address] Escoto with Vascular Dr. Hardy on consult. Protein calorie malnutrition, BMI 18.3, poor p.o. intake (followed by [facility] outpt) Patient reports that she has difficulty chewing due to her partial glossectomy. She reports that she does not actually have trouble swallowing, but her food choices are limited by her ability to chew them. She reports when she has been able to chew food or when drinking shakes she has never had problems with swallowing/dysphagia/food getting stuck in her throat. Speech is following. Video swallow is pending. Initially denied postprandial pain h owever on reassessment she is/30 admits that she has had discomfort which she dismissed as GERD after meals for the last month, and admits she may have had some pain for several months She was recommended for smoothies, shakes, and boost by her coater hand however she notes that she has not kept up with this partially due to difficulty coordinating these foods and partially due to cost Boost 3 times daily Minced and moist diet Dietitian following High-dose thiamine protocol ordered by ICU, continued. 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 CAD/hypertension/history of STEMI Follows with cardiology as an outpatient Denies history of stents Long-term anticipate statin/antiplatelet/anticoagulation therapy No chest pain or ischemic symptoms Carotid stenosis- - Carotid duplex 12/15/2019 anterograde flow in right vertebral artery, and left vertebral artery is occluded -Medications as noted History of intracranial hemorrhage (evaluated at [facility] approximately 10- 15 years ago) Patient reports greater than 10 years ago, intracranial bleed due to trauma an d skull fracture. No residual deficits. Denies any bleeding complications since then other than small cuts up until current bowel episode. Denies history of spontaneous bleeding. Admission HPI Per Admitting Provider The patient is a 58-year-old female with a past medical history including peripheral arterial disease, hypertension, dyslipidemia, coronary disease, GERD, hyperlipidemia, peripheral neuropathy, and COPD. The patient presents to the emergency department with concerns regarding a recently diagnosed potential uterine mass. She reports having at least 1 month of issues with crampy abdominal pain and diarrhea. Upon initial presentation to the emergency department, her systolic blood pressures in the 80s to 90s. Her HPI and review of systems are very limited, in part associated with patient's intellectual capacity. She has had decreased oral intake as noted for the past several months, and has continued to lose significant amounts of weight, showing issues with protein calorie malnutrition. Workup in the emergency department included CT scan of abdomen pelvis which shows extensive atherosclerosis with suspected renal and mesenteric artery stenoses as well as severe stenosis of common iliac arteries bilaterally. Discharge Exam General: A&Ox3. Tearful. Appears fatigued but nontoxic HEENT: Atraumatic, normocephalic. Vision and hearing grossly intact. S/p partial glossectomy Pulm: CTAB A&P. -wheezes, -rales, -rhonchi. Symmetrical chest rise. No increased work of breathing. No respiratory distress. Cardiac: Tachycardic, -mrg. Radial pulses intact and symmetrical. Abdominal: Diffusely tender to palpation without rigidity/involuntary guarding/rebound. No tympany on percussion Extremities: Warm, dry Discharge Plan Discharge Items Patient Disposition: Transfer Acute Care Hospital Reason For Visit: ISCHEMIC BOWEL, METABOLIC ACIDOSIS Discharge Diagnosis: Mesenteric Insufficiency, Metabolic Acidosis Condition on Discharge: Serious Activity: Resume your previous activity Non-emergency contact: Primary Care Provider Call non-emergency contact if: you have any medication questions, your symptoms worsen, your pain is not controlled and your pain is worsening Follow-up/Referrals: Kvng Sandoval [Primary Care Provider] - Diet: Nothing by Mouth Addtl Attending Provider Instructions: The patient is a 58-year-old female with a past medical history including peripheral arterial disease, hypertension, dyslipidemia, coronary disease, GERD, hyperlipidemia, peripheral neuropathy, and COPD. The patient presents to the emergency department with concerns regarding a recently diagnosed potential uterine mass. She reports having at least 1 month of issues with crampy abdominal pain and diarrhea. Upon initial presentation to the emergency department, her systolic blood pressures in the 80s to 90s. Her HPI and review of systems are very limited, in part associated with patient's intellectual capacity. She has had decreased oral intake as noted for the past several months, and has continued to lose significant amounts of weight, showing issues with protein calorie malnutrition. Workup in the emergency department included CT scan of abdomen pelvis which shows extensive atherosclerosis with suspected renal and mesenteric artery stenoses as well as severe stenosis of common iliac arteries bilaterally. Acute on chronic mesenteric ischemia, SMA stenosis CTA/P with contrast: Severe stenosis of proximal SMA, suspected right renal artery stenosis Suspect due to volume contraction/depletion on arterial insufficiency, poor p.o. intake in part related to difficulty swallowing due to partial glossectomy Heme positive stool with enteric sloughing/ischemia due to poor perfusion. Continue Alice Case was reviewed by vascular surgery at [place] initially prior admission. No acute findings, does have severe proximal SMA stenosis and diffuse arterial disease however findings are chronic without acute occlusion and pt was feeling improved initially --> recommended admission and medical management. 06/22 patient reports worsened pain than on previous days generally feeling poor. Endorses worsening abdominal pain this AM. Normotensive. Net 7.7 L positive. Lactate uptrending. Repeat VBG pending. Repeat CTA/P with diffuse intestinal hyperemia, thickening, stasis concerning for enterocolitis versus ischemia. Dense calcification with stenosis of the celiac trunk and SMA. No perforation or abscess Discussed the patient and her daughter at bedside. Patient was somewhat reticent to have her family know about her symptoms and worries about stress on her children but now notes that while she initially dismissed this is GERD she has had postprandial pain for the last month. On further discussion with her daughter at bedside admits that this may have been present for several months. Called [place] via transfer center to review case given continued abdominal pain, uptrending lactate, and concern for ongoing mesenteric insufficiency with SMA stenosis. She remains heparinized, fortunately hemoglobin is stable and hematochezia/melena have improved. Corin reports that she would want any and all options including surgery available to her if it could potentially extend her life as regardless of quality her biggest concern would be extending her life to be present for her children. - Reviewed with vascular surgery. Did discuss with ICU Dr. Peterson prior to transfer that pt is currently in the ICU due to electrolyte derangements, acidosis, and monitoring for bleeding while on heparin gtt, although is not on any vasopressors and is not intubated. ICU vs non-icu/vascular primary admit was reviewed by [facility] internally. Accepted to C-ICU [address] Escoto with Vascular Dr. Hardy on consult. Protein calorie malnutrition, BMI 18.3, poor p.o. intake (followed by [facility] outpt) Patient reports that she has difficulty chewing due to her partial glossectomy. She reports that she does not actually have trouble swallowing, but her food choices are limited by her ability to chew them. She reports when she has been able to chew food or when drinking shakes she has never had problems with swallowing/dysphagia/food getting stuck in her throat. Speech is following. Video swallow is pending. Initially denied postprandial pain however on reassessment she is/30 admits that she has had discomfort which she dismissed as GERD after meals for the last month, and admits she may have had some pain for several months She was recommended for smoothies, shakes, and boost by her coater hand however she notes that she has not kept up with this partially due to difficulty coordinating these foods and partially due to cost Boost 3 times daily Minced and moist diet Dietitian following High-dose thiamine protocol ordered by ICU, continued. 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 CAD/hypertension/history of STEMI Follows with cardiology as an outpatient Denies history of stents Long-term anticipate statin/antiplatelet/anticoagulation therapy No chest pain or ischemic symptoms Carotid stenosis- - Carotid duplex 12/15/2019 anterograde flow in right vertebral artery, and left vertebral artery is occluded -Medications as noted History of intracranial hemorrhage (evaluated at [facility] approximately 10- 15 years ago) Patient reports greater than 10 years ago, intracranial bleed due to trauma and skull fracture. No residual deficits. Denies any bleeding complications since then other than small cuts up until current bowel episode. Denies history of spontaneous bleeding. Pending Studies at Discharge: No Stand-Alone Forms: Ring[employer]cha Skilled Items Patient informed of condition?: Yes DNR: No Discharge Level of Care: Other Communicable Disease: No Discharge Prognosis: Other Lines: Peripheral IV Urinary Catheter: Yes Medications and DC Order Prescriptions: Continued losartan 50 mg tablet 50 mg PO DAILY Qty: 90 3RF metoprolol succinate 50 mg tablet extended release 24 hr 50 mg PO DAILY Qty: 90 3RF Fetzima 80 mg capsule,extended release 24 hr 80 mg PO DAILY hydroxyzine HCl 50 mg tablet 50 - 100 mg PO Q6H PRN (Reason: anxiety or sleep) pantoprazole 20 mg tablet,delayed release (DR/EC) 20 mg PO DAILY Spiriva Respimat 2.5 mcg/actuation mist 1 puff INHALATION BID nortriptyline 50 mg capsule 50 mg PO HS acetaminophen 500 mg Tablet 500 mg PO DAILY PRN (Reason: Pain) famotidine 20 mg Tablet 20 mg PO BID folic acid 1 mg tablet 1 mg PO DAILY montelukast 10 mg Tablet 10 mg PO DAILY atorvastatin 80 mg tablet 80 mg PO DAILY Discharge Orders: Discharge Order (Routine); Ordered 06/22/24 Ordered By: Javier Jean Admission Data Admit Date/Time: 06/20/24 21:22 Attending Provider: Javier Jean Admit Provider: Ramses Love Primary Care Provider: Kvng Sandoval Other Providers: Ramses Love; Luis F Navarro; Madisyn Acevedo; Krupa Haider Other Interventions: Discharge Summary Assessment (RN) Last Done: 06/22/24 14:52 Hospital Stay Data Consultations 06/20/24 19:42 ED Decision to Admit Stat 06/20/24 22:29 Consult Fiber Technician Routine 06/21/24 09:01 Consult Palliative Care Routine 06/21/24 18:21 Radiology Transfer Of Images Stat 06/22/24 12:11 Radiology Transfer Of Images Stat Diagnostic Imagining Performed 06/20/24 13:57 CT Abd and Pelvis [CT abd pelvis IV con only] Stat 06/22/24 06:07 CT head/brain wo con Stat 06/22/24 10:12 CT Abd and Pelvis [CT abd pelvis IV con only] Stat 06/23/24 10:30 Fluoro video [FL video swallow] Routine Discharge Instructions Given to Patient (Per Discharging Provider) The patient is a 58-year-old female with a past medical history including peripheral arterial disease, hypertension, dyslipidemia, coronary disease, GERD, hyperlipidemia, peripheral neuropathy, and COPD. The patient presents to the emergency department with concerns regarding a recently diagnosed potential uterine mass. She reports having at least 1 month of issues with crampy abd ominal pain and diarrhea. Upon initial presentation to the emergency department, her systolic blood pressures in the 80s to 90s. Her HPI and review of systems are very limited, in part associated with patient's intellectual capacity. She has had decreased oral intake as noted for the past several months, and has continued to lose significant amounts of weight, showing issues with protein calorie malnutrition. Workup in the emergency department included CT scan of abdomen pelvis which shows extensive atherosclerosis with suspected renal and mesenteric artery stenoses as well as severe stenosis of common iliac arteries bilaterally. Acute on chronic mesenteric ischemia, SMA stenosis CTA/P with contrast: Severe stenosis of proximal SMA, suspected right renal artery stenosis Suspect due to volume contraction/depletion on arterial insufficiency, poor p.o. intake in part related to difficulty swallowing due to partial glossectomy Heme positive stool with enteric sloughing/ischemia due to poor perfusion. Adrian Jenkins Case was reviewed by vascular surgery at [place] initially prior admission. No acute findings, does have severe proximal SMA stenosis and diffuse arterial d isease however findings are chronic without acute occlusion and pt was feeling improved initially --> recommended admission and medical management. 06/22 patient reports worsened pain than on previous days generally feeling poor. Endorses worsening abdominal pain this AM. Normotensive. Net 7.7 L positive. Lactate uptrending. Repeat VBG pending. Repeat CTA/P with diffuse intestinal hyperemia, thickening, stasis concerning for enterocolitis versus ischemia. Dense calcification with stenosis of the celiac trunk and SMA. No perforation or abscess Discussed the patient and her daughter at bedside. Patient was somewhat reticent to have her family know about her symptoms and worries about stress on her children but now notes that while she initially dismissed this is GERD she has had postprandial pain for the last month. On further discussion with her daughter at bedside admits that this may have been present for several months. Called [place] via transfer center to review case given continued abdominal pain, uptrending lactate, and concern for ongoing mesenteric insufficiency with SMA stenosis. She remains heparinized, fortunately hemoglobin is stable and hematochezia/melena have improved. Corin reports that she would want any and all options including surgery available to her if it could potentially extend her life as regardless of quality her biggest concern would be extending her life to be present for her children. - Reviewed with vascular surgery. Did discuss with ICU Dr. Peterson prior to transfer that pt is currently in the ICU due to electrolyte derangements, acidosis, and monitoring for bleeding while on heparin gtt, although is not on any vasopressors and is not intubated. ICU vs non-icu/vascular primary admit was reviewed by [facility] internally. Accepted to C-ICU [address] Escoto with Vascular Dr. Hardy on consult. Protein calorie malnutrition, BMI 18.3, poor p.o. intake (followed by [facility] outpt) Patient reports that she has difficulty chewing due to her partial glossectomy. She reports that she does not actually have trouble swallowing, but her food choices are limited by her ability to chew them. She reports when she has been able to chew food or when drinking shakes she has never had problems with swallowing/dysphagia/food getting stuck in her throat. Speech is following. Video swallow is pending. Initially denied postprandial pain however on reassessment she is/30 admits that she has had discomfort which she dismissed as GERD after meals for the last month, and admits she may have had some pain for several months She was recommended for smoothies, shakes, and boost by her coater hand however she notes that she has not kept up with this partially due to difficulty coordinating these foods and partially due to cost Boost 3 times daily Minced and moist diet Dietitian following High-dose thiamine protocol ordered by ICU, continued. 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 CAD/hypertension/history of STEMI Follows with cardiology as an outpatient Denies history of stents Long-term anticipate statin/antiplatelet/anticoagulation therapy No chest pain or ischemic symptoms Carotid stenosis- - Carotid duplex 12/15/2019 anterograde flow in right vertebral artery, and left vertebral artery is occluded -Medications as noted History of intracranial hemorrhage (evaluated at [facility] approximately 10- 15 years ago) Patient reports greater than 10 years ago, intracranial bleed due to trauma and skull fracture. No residual deficits. Denies any bleeding complications since then other than small cuts up until current bowel episode. Denies history of spontaneous bleeding. Total Time Total Time Spent Total Time Spent (In Minutes): Time spend day of discharge 110 minutes including direct patient care, documentation, review of labs and images, and coordination of care. Coding Level of Care Code 30730 INP/OBS DISCH >30 MIN Diagnoses Ischemia, bowel K55.9 Hypotension I95.9 Hypotension type: unspecified hypotension type Malnutrition E46 Acute dehydration E86.0
--- NOTE | 2024-06-22 13:44 | Electrocardiogram Report ---
Test Reason : Blood Pressure : */* mmHG Vent. Rate : 73 BPM Atrial Rate : 73 BPM P-R Int : 146 ms QRS Dur : 86 ms QT Int : 440 ms P-R-T Axes : 77 15 63 degrees QTcB Int : 484 ms Normal sinus rhythm Normal ECG When compared with ECG of 16-Jun-2024 18:15, No significant change was found Confirmed by Nitza Nava (Jyothi) on 06/22/2024 1:44:05 PM Referred By: REFERRED SELF Confirmed By: Nitza Nava
[2024-06-22 14:20] VITALS: BP 133/106; PULSE 111; RESP 18; TEMP 99; O2SAT 98
--- NOTE | 2024-06-23 08:07 | Electrocardiogram Report ---
Test Reason : Blood Pressure : */* mmHG Vent. Rate : 104 BPM Atrial Rate : 104 BPM P-R Int : 134 ms QRS Dur : 74 ms QT Int : 300 ms P-R-T Axes : 69 -10 71 degrees QTcB Int : 394 ms Sinus tachycardia Low voltage QRS Septal infarct , age undetermined Abnormal ECG When compared with ECG of 20-Jun-2024 13:44, Nonspecific T wave abnormality now evident in Inferior leads Nonspecific T wave abnormality now evident in Anterolateral leads QT has shortened Confirmed by Nitza Nava (Jyothi) on 06/23/2024 8:07:43 AM Referred By: REFERRED SELF Confirmed By: Nitza Nava
== END 2024-06-22 15:46 | disposition short-term general hospital (02) | DRG 871 ==
LOC: ED 13:21 → SUATTDRO 21:22 → 1E 21:22